=== PATIENT | male | born 1955 | race Caucasian/White ===

== ENCOUNTER → 2019-12-27 18:10 | Outpatient (CLI) | payer BC, SELFPAY ==
--- NOTE | ~2019-12-27 | MR_ITS ---
EXAMINATION: MR lumbar spine wo [facility] EXAM DATE: 12/27/2019 18:57 INDICATION: Lumbar radiculopathy. Low back pain. TECHNIQUE: Multi-sequential, multiplanar MR images of the lumbar spine were obtained without contrast . Sagittal T1, T2, T2 fat saturation images. Axial T2 weighted images. There are no prior studies f or comparison. FINDINGS: There is 2 mm retrolisthesis L3 on L4. There is mild to moderate L5-S1 disc disease, mild a t the other lumbar levels. The conus medullaris terminates at the L1 level and has normal signal inte nsity and morphology. There are no suspicious marrow signal abnormalities. Paraspinal soft tissue is unremarkable. Level by level evaluation: T12-L1: Disc does not extend beyond the endplate margin. Facet arthropathy: Mild. Neural foraminal stenosis: No stenosis. Central canal stenosis: No stenosis. L1-L2: There is a mild diffuse disc bulge. Facet arthropathy: Mild. Neural foraminal stenosis: Mild bilateral. Central canal stenosis: Mild. L2-L3: There is a mild diffuse disc bulge. Facet arthropathy: Mild. Neural foraminal stenosis: Mild bilateral. Central canal stenosis: Mild. L3-L4: There is a mild to moderate diffuse disc bulge. Facet arthropathy: Mild to moderate. Neural foraminal stenosis: Moderate right, mild to moderate left. Central canal stenosis: Mild to moderate. L4-L5: There is a mild diffuse disc bulge. Facet arthropathy: Mild. Neural foraminal stenosis: Mild to moderate bilateral. Central canal stenosis: Mild. L5-S1: There is a mild diffuse disc bulge. Facet arthropathy: Mild. Neural foraminal stenosis: Moderate bilateral. Central canal stenosis: No stenosis. IMPRESSION: 1. Mild to moderate lumbar spondylosis. Reviewed, dictated and finalized at location A.
== END ==
PROVIDERS: PCP Nurse Practitioner Adult Health; Visit Provider Nurse Practitioner Adult Health
DX: M47.26 Other spondylosis with radiculopathy, lumbar region (principal)
CPT/HCPCS: 72148

== ENCOUNTER 2022-06-25 13:03 | Outpatient (CLI) | payer OTHER, SELFPAY ==
--- NOTE | ~2022-06-25 | XR_ITS ---
XR lumbar spine min 4V DATE: 06/25/2022 13:33 INDICATION: Chronic low back pain for years. No fall or trauma recently TECHNIQUE: AP, bilateral oblique, lateral and coned lateral lumbosacral views COMPARISON: None FINDINGS: Very prominent right-sided bridging osteophyte at L3-4. There is mild retrolisthesis at L3- 4. There is mild degenerative spurring at the remaining lumbar interspaces. There is moderate loss of disc space height at L1-2, L3-4, L4-5. No fracture or bone destruction or spondylolisthesis. The sacroiliac joints are intact. IMPRESSION: Multilevel degenerative disc disease, most pronounced at L3-4, with very prominent bridgi ng osteophyte and mild retrolisthesis at this level Reviewed, dictated and finalized at location B. IMPRESSION: Multilevel degenerative disc disease, most pronounced at L3-4, with very prominent bridging osteophyte and mild retrolisthesis at this level
== END 2022-06-25 13:04 | disposition home or self-care (01) ==
LOC: ANHIMG 13:10
PROVIDERS: PCP Family Medicine; Visit Provider Family Medicine
DX: M51.36 Other intervertebral disc degeneration, lumbar region (principal); M54.50 Low back pain, unspecified
CPT/HCPCS: 72110

== ENCOUNTER 2023-02-25 11:06 | Outpatient (CLI) | payer MEDICARE, SELFPAY ==
--- NOTE | ~2023-02-25 | US_ITS ---
EXAMINATION: US aorta [facility] scr[facility] DATE: 02/25/2023 11:53 INDICATION: Abdominal aortic aneurysm screening with risk factors of hypertension, diabetes, hypercho lesterolemia and prior smoking TECHNIQUE: Grayscale, color Doppler, and pulsed Doppler images of the aorta and common iliac arteries were obtained. COMPARISON: None. FINDINGS: The proximal aorta measures 2.3 cm. The mid aorta measures 2.1 cm. The distal aorta measures 2.0 cm. Normal aortic triphasic waveforms with brisk systolic upstrokes. The right common iliac artery measur es 1.1 cm. The left common iliac artery measures 1.0 cm. IMPRESSION: 1. Normal caliber abdominal aorta. Reviewed, dictated and finalized at location A. 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
== END 2023-02-25 11:07 | disposition home or self-care (01) ==
PROVIDERS: PCP Family Medicine; Visit Provider Family Medicine
DX: Z87.891 Personal history of nicotine dependence (principal)
CPT/HCPCS: 76706

== ENCOUNTER 2023-05-27 10:51 | Outpatient (CLI) | payer MEDICARE, SELFPAY ==
--- NOTE | ~2023-05-27 | XR_ITS ---
EXAMINATION: XR abdomen/kub 1V INDICATION: Unspecified abdominal pain and swelling TECHNIQUE: Supine views of the abdomen were obtained on 2 radiographs. COMPARISON: None FINDINGS: The bowel gas pattern is normal. No dilated loops of bowel are identified. The lung bases a re clear. There are phleboliths of the pelvis. IMPRESSION: 1. No radiographic correlate for the patient's symptoms. Reviewed, dictated and finalized at location F.
--- NOTE | ~2023-05-27 | XR_ITS ---
EXAMINATION: XR ribs LT 2V INDICATION: Pleurodynia TECHNIQUE: Four views of the left ribs were obtained. COMPARISON: 03/17/2013 FINDINGS: The left lung is clear. The heart size is normal. No pleural effusion or pneumothorax. No d isplaced rib fracture is identified. IMPRESSION: 1. No acute cardiopulmonary abnormality or evidence of displaced rib fracture. Reviewed, dictated and finalized at location F.
[2023-05-27 19:15] LABS: Hemoglobin 15.2 g/dL (14.0-18.0); Mean Corpuscular HGB Conc 31.7 g/dl (32-36); Mean Corpuscular Hemoglobin 31.5 pg (26-34); Mean Corpuscular Volume 99.4 fl (80-100); Platelet Count Result 137 k/mm3 (150-375); Red Blood Count 4.83 M/mm3 (4.6-6.20); Red Cell Distribution Width 12.5 % (11.5-14.5); White Blood Count 6.9 K/mm3 (4.5-10.0)
[2023-05-27 19:48] LABS: Alanine Aminotransferase 58 U/L (6-50); Albumin Level 4.5 g/dL (3.5-5.1); Alkaline Phosphatase 51 U/L (38-126); Amylase 91 U/L (30-110); Anion Gap 4 mmol/L (8-16); Aspartate Amino Transferase 56 U/L (17-59); Bilirubin,Total 0.6 mg/dL (0.2-1.3); Blood Urea Nitrogen 14 mg/dL (9-20); Calcium 9.2 mg/dL (8.4-10.2); Carbon Dioxide 30 mmol/L (22-30); Chloride 106 mmol/L (98-107); Estimated Glomerular Filt Rate > 60; Glucose 95 mg/dL (65-110); Lipase 68 U/L (23-300); Magnesium 2.6 mg/dL (1.6-2.3); Potassium 4.1 mmol/L (3.4-5.0); Sodium 140 mmol/L (137-145)
[2023-05-29 15:08] LABS: Folic Acid > 20.0 ng/mL (2.76->20)
== END 2023-05-27 10:52 | disposition home or self-care (01) ==
PROVIDERS: Visit Provider Nurse Practitioner Adult Health
DX: R10.9 Unspecified abdominal pain (principal); M62.81 Muscle weakness (generalized); R07.81 Pleurodynia
CPT/HCPCS: 36415; 71100; 74018; 80048; 80076; 82150; 82607; 82746; 83690; 83735; 85027

== ENCOUNTER 2023-05-28 15:55 | Outpatient (CLI) | payer MEDICARE, SELFPAY ==
--- NOTE | ~2023-05-28 | MR_ITS ---
MRI of the lumbar spine Clinical History: Degenerative disc disease Technique: Axial T2-weighted images, and sagittal T1-weighted, T2-weighted, and T2 fat-sat images wer e acquired. COMPARISON: 12/27/2019 Findings: No fracture or subluxation identified in the lumbar spine. Osseous alignment is unchanged. No suspicious bone marrow signal abnormality seen. At L1-L2, there is mild degenerative disc narrowing. Minimal disc bulge and moderate facet arthropath y results in mild to moderate thecal sac compression/spinal canal stenosis. There is minimal bilatera l neural foraminal narrowing. At L2-L3, minimal disc bulge and moderate facet arthropathy contribute to mild central canal stenosis /thecal sac compression. Neural foramina are preserved. At L3-L4, disc bulge and moderate facet arthropathy, as well as focally prominent posterior epidural fat, contribute to moderate spinal canal stenosis/thecal sac compression and right lateral recess malvin nosis. There is moderate left neural foraminal narrowing, and severe right neural foraminal narrowing . At L4-L5, minimal disc bulge and moderate facet arthropathy are present. No jonah spinal canal stenos is. There is moderate to advanced right neural foraminal narrowing, and moderate left neural foramina l narrowing. L5-S1, there is diffuse disc bulge and moderate facet arthropathy. No central canal stenosis. There i s severe bilateral neural foraminal narrowing. Paravertebral soft tissues are unremarkable otherwise. Impression: Moderate to advanced degenerative spondylosis, as above. Reviewed, dictated and finalized at [facility]. Impression: Moderate to advanced degenerative spondylosis, as above.
== END 2023-05-28 15:56 ==
LOC: MICIMG 15:56
PROVIDERS: Visit Provider Nurse Practitioner Adult Health
DX: M25.78 Osteophyte, vertebrae (principal); M51.36 Other intervertebral disc degeneration, lumbar region; M43.06 Spondylolysis, lumbar region
CPT/HCPCS: 72148

== ENCOUNTER 2023-06-15 10:22 | Outpatient (CLI) | payer MEDICARE, SELFPAY ==
--- NOTE | ~2023-06-15 | CT_ITS ---
Non-contrast CT scan of the Abdomen and Pelvis Clinical indication: Intra-abdominal swelling, mass Technique: 2.5 mm axial scans were obtained through the abdomen and pelvis without intravenous or or al contrast. Dose reduction technique was used on this scan by utilizing automated exposure control a nd iterative reconstruction technique. The dose-length product (DLP) was 974.70 mGy-cm. Findings: Images through the lung bases reveal no abnormalities. There is no evidence of renal or ureteral calculi. The kidneys and the ureters are nondilated. The liver, spleen, pancreas, gallbladder, and adrenals appear normal. There are atherosclerotic calci fications of the aorta. There is no evidence of bowel obstruction. Small fat-containing left-sided Spigelian hernia noted. Images through the pelvis were performed. There is no evidence of ascites or lymphadenopathy. Urinary bladder unremarkable. No pelvic mass seen. Impression: No acute abnormality. Small fat-containing left-sided spigelian hernia. Reviewed, dictated and finalized at location . Impression: No acute abnormality. Small fat-containing left-sided spigelian hernia.
== END 2023-06-15 10:23 ==
LOC: MICIMG 10:23
PROVIDERS: PCP Nurse Practitioner Adult Health; Visit Provider Nurse Practitioner Adult Health
DX: R19.00 Intra-abdominal and pelvic swelling, mass and lump, unspecified site (principal); K43.9 Ventral hernia without obstruction or gangrene
CPT/HCPCS: 74176

== ENCOUNTER 2023-06-15 10:25 | Outpatient (CLI) | payer MEDICARE, SELFPAY ==
--- NOTE | ~2023-06-15 | XR_ITS ---
EXAM: XR lumbar spine min 4V DATE: 06/15/2023 10:56 HISTORY: M47.816 - Spondylosis without myelopathy or radiculopathy... . COMPARISON: 06/25/2022, report only. FINDINGS: 5 nonrib-bearing lumbar-type vertebral bodies. Pedicles intact. 3 mm retrolisthesis at L3- 4, stable in flexion and extension. Vertebral body heights preserved. Disc space narrowing and/or mar ginal osteophytosis at all levels, moderate at L3-4. Large bridging osteophytes at L2-3 and L3-4. Mod erate lower lumbar facet hypertrophy and sclerosis. No fracture or dislocation. Atherosclerotic aorti c calcification without evident aneurysm. IMPRESSION: Multilevel degenerative disc disease, moderate at L3-4. Stable grade 1 retrolisthesis at L3-4. No dynamic listhesis detected. Moderate lower lumbar facet arthropathy. Reviewed, dictated and finalized at location K. IMPRESSION: Multilevel degenerative disc disease, moderate at L3-4. Stable grad e 1 retrolisthesis at L3-4. No dynamic listhesis detected. Moderate lower lumba r facet arthropathy.
== END 2023-06-15 10:26 ==
LOC: MICIMG 10:27
PROVIDERS: PCP Nurse Practitioner Adult Health; Visit Provider Physician Assistant
DX: M47.816 Spondylosis without myelopathy or radiculopathy, lumbar region (principal); M51.36 Other intervertebral disc degeneration, lumbar region
CPT/HCPCS: 72110

== ENCOUNTER 2023-07-15 12:33 | Outpatient (CLI) | payer MEDICARE, SELFPAY ==
--- NOTE | 2023-07-15 12:57 | ECG_ITS ---
SEE SCANNED COPY FOR CONFIRMED REPORT MTDD
== END 2023-07-15 12:34 | disposition home or self-care (01) ==
LOC: ANHSURGERY 12:39
PROVIDERS: PCP Nurse Practitioner Adult Health; Visit Provider Surgery
DX: Z01.818 Encounter for other preprocedural examination (principal); I10 Essential (primary) hypertension; K43.2 Incisional hernia without obstruction or gangrene
CPT/HCPCS: 36415; 86850; 86900; 86901; 93005

== ENCOUNTER 2023-07-22 01:24 | Day surgery (SDC) | payer MEDICARE, SELFPAY ==
--- NOTE | 2023-07-13 13:55 | PC.NURSE ---
Report to the Outpatient Waiting Room, entrance under the green pavilion located off [facility], at time _9:00 AM on date ___07/22/23____. Planned Procedure Time: _1100 AM . Time changes happen often and if your time is changed the preop area will call you the afternoon before. - You and your visitor will be asked to self-screen and do not enter if you have any COVID symptoms. - A mask is optional within the hospital at this time. Patients may have clear liquids (water, carbonated beverages, clear teas, apple juice) until 3 hours prior to surgery( 8:00 Am) with a maximum of 20 ounces. - No food from midnight until time of surgery - Infants may have breast milk until 4 hours before surgery, infant formula 6 hours prior to surgery. - Children will be allowed to drink immediately following surgery. If applicable, please bring a bottle or sippy cup to assist with drinking. Juice, water, soda, and popsicles are readily available. For infants on formula, please bring formula the day of surgery. Pacifiers are allowed. Take the following medications with a SIP of water the morning of surgery: METOPROLOL MAY CONTINUE ASPIRIN BUT DO NOT TAKE MORNING OF SURGERY____ DO NOT STOP ANY OF YOUR OTHER PRESCRIPTION MEDICATIONS PRIOR TO SURGERY ?EXCEPT THE FOLLOWING Medications to discontinue per physician ____HOLD VITAMINS AND SUPPLEMENTS 3 DAYS PRE OP .LAST DOSE 07/18/23 Please no make-up, nail serbian, hairspray, perfume, deodorant, or body powder the day of surgery. No jewelry (including any body piercings) or valuables the day of surgery, leave them at home. Please take a shower or bath the night before, or the morning of, surgery with an antibacterial soap. Wear comfortable, loose fitting clothing. Children are encouraged to wear pajamas. - Jewelry must be removed prior to entering the operating room. Rings and piercings that are not removed may be cut off. - The hospital will not accept responsibility for valuables. - Please leave all valuables, including medications, at home the day of surgery. If you are going home after surgery, a licensed regional owner operator truck driver must drive you home. - NO public transportation without another adult if you receive anesthesia. - We recommend that an adult stay with you for 24 hours following discharge. - We also recommend that you do not drive, make important decision, drink alcoholic beverages, or take any drugs that were not prescribed by your health care provider for at least 24 hours after your discharge time. Follow any additional instructions given to you from your surgeon. If you or anyone in your household have experienced Covid symptoms in the past week, please notify your surgeon or the nurse liaison at the phone number below for possible testing. Telephone instructions given to ___PATIENT and asked if any additional questions and then verbalized understanding. Patient advised to call surgeon office or pre surgery nurse liaison [phone] if any additional questions.
[2023-07-13 14:05] VITALS: BMI 33.7
[2023-07-22] VITALS (9 sets, daily range): BP systolic 114–162; BP diastolic 66–84; PULSE 55–78; RESP 12–18; TEMP 36.4; O2SAT 94–100; BMI 33.8
[2023-07-22] MEDS: LACTATED RINGERS 1,000 ML 30 ML IV CONT ×3 (09:35→14:23)
[2023-07-22] MEDS: ACETAMINOPHEN 500 MG TABLET 1000 MG PO (09:47)
[2023-07-22] MEDS: KETOROLAC 15 MG/ML VIAL (*BKC) IV PUSH (09:47)
--- NOTE | 2023-07-22 10:00 | WPDANESEPPF ---
Anes - Initial Pre Proc Eval Procedure: Operation Date: 07/22/23 11:00 Proposed Procedures p Laparoscopic Incisional Hernia Repair with Mesh, Davinci Assisted - Jluius Jiménez DO Date/Time: 07/22/23 10:00 Surgeon: Julius Jiménez DO Pre Op Diagnosis: Incisional Hernia (2cm) Patient Data Age: 67 Gender: M Height: 1.78 m Weight: 106.6 kg Allergies Allergy/AdvReac Type Severity Reaction Status Date / Time Penicillins Allergy Intermediate Anaphylactic Verified 07/22/23 09:25 Shock Home Medications Medication Instructions Recorded Confirmed Type aspirin 81 mg tablet,delayed 81 mg PO DAILY 04/13/23 07/13/23 History release hydrocodone 5 mg-acetaminophen 325 1 tablet PO Q8H PRN pain #30 tabs 04/13/23 07/13/23 Rx mg tablet lisinopril 40 mg tablet 40 mg PO DAILY 04/13/23 07/13/23 History rosuvastatin 20 mg tablet 20 mg PO DAILY #90 tabs 04/13/23 07/13/23 Rx ascorbic acid (vitamin C) 500 mg 500 mg PO DAILY 07/13/23 07/13/23 History capsule cholecalciferol (vitamin D3) 50 50 mcg PO DAILY 07/13/23 07/13/23 History mcg (2,000 unit) tablet cyanocobalamin (vitamin B-12) 1,000 mcg PO DAILY 07/13/23 07/13/23 History 1,000 mcg tablet metoprolol succinate 25 mg 12.5 mg PO DAILY 07/13/23 07/13/23 History tablet,extended release 24 hr multivit,calcium,min-folic acid 1 tablet PO DAILY 07/13/23 07/13/23 History 240 mcg-D3 25 mcg-lycop 300 mcg tablet (One A Day Men Complete) Patient hx anesthesia problems: none and other (Pt reports feeling weak after GA for appy approx 2018. ) Family hx anesthesia problems: none Results Review: All pre-operative results and documents have been reviewed as part of the pre-operative evaluation. [facility] Past Medical History Medical History CAD (coronary atherosclerotic disease) HTN (hypertension) Family History Family History Father Family history of aortic aneurysm Mother Diabetes mellitus Heart disease Depression Cerebrovascular accident Hypertension Sibling Diabetes mellitus Hypertension Heart disease Other Acute myocardial infarction Family history of coronary artery disease Social History Social History Smoking packs per day: 1 Smoking cigarettes per day: 20.0 Years smoked: 29 Smoking pack-years: 29.00 Smoking status: Former smoker Tobacco type: cigarettes Smoking end date: 08/08/99 Alcohol intake: current Drinks per week: 12 Alcohol use details: BEER Substance use: never Substance use type: does not use Do You Feel Safe in your Home?: Yes Lack of Transportation: No Lack of Food: Never True Current Housing: I Have Housing Concerned About Future Housing: No Difficulty Paying Gas/Electric Bills: No Difficulty Paying for Meds: No Currently Unemployed: No Education: High School Diploma/GED Difficulty w/ Childcare or Family Care: No Living arrangements: with family Occupation/Education: retired Gender identity (if verbalized by the patient): Male Spiritual care concerns: No Agree to blood products: Yes Anes - Eval Final PreProcedure Day of Procedure 07/22/23 10:00 Patient weight: normal Heart: regular rate and rhythm Lungs: clear to auscultation Airway: special considerations (Lower teeth missing in back. ) Neurological: alert and oriented Last oral intake: >/= 8 hours ASA classification: III Emergent: no Anesthetic plan: proceed Anesthesia type and monitoring: general ETT and standard monitoring Results Review: All pre-operative results and documents have been reviewed as part of the pre-operative evaluation. S/p PTCA 2018 w nml stress test 2022 per pt and his family. 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 Informed Consent: The patient's anesthetic plan and its attenda
--- NOTE | 2023-07-22 11:02 | WPDHPUPDATE1 ---
History and Physical Update Update Date/Time: 07/22/23 11:02 History and Physical has been reviewed, including an updated exam of the patient. There are NO changes in the patient's condition. Risks, benefits, and alternatives have been discussed and questions answered. Patient agrees to proceed with procedure.
--- NOTE | 2023-07-22 11:03 | PM.IMHP ---
H&P: HPI History of Present Illness Date/Time: 07/22/23 11:03 Chief Complaint: Incisional hernia Narrative: This is a 67-year-old man who presents for incisional hernia repair. He reports no changes since last seen in the office. Review of Systems Review of Systems: All systems reviewed & are unremarkable except as noted in HPI and below Constitutional: Constitutional: Denies chills, Denies fever(s), Denies headache(s) and Denies weight loss Eyes: Eyes: Denies change in vision ENT: Denies dizziness, Denies headache(s), Denies neck mass and Denies throat swelling Cardiovascular: Cardiovascular: Denies chest pain, Denies lightheadedness and Denies dyspnea Respiratory: Respiratory: Denies cough, Denies dyspnea and Denies wheezing Gastrointestinal: Gastrointestinal: Denies abdominal pain, Denies change in bowel habits, Denies nausea and Denies vomiting Genitourinary: Genitourinary: Denies hematuria and Denies dysuria Musculoskeletal: Musculoskeletal: Reports as per HPI Integumentary/Breasts: Skin/Breast: Reports as per HPI Neurologic: Denies dizziness and Denies headache(s) Allergic/Immunologic: Allergic/Immunologic: Denies throat swelling and Denies wheezing PMFSH Past Medical History Medical History CAD (coronary atherosclerotic disease) HTN (hypertension) Family History Family History Father Family history of aortic aneurysm Mother Diabetes mellitus Heart disease Depression Cerebrovascular accident Hypertension Sibling Diabetes mellitus Hypertension Heart disease Other Acute myocardial infarction Family history of coronary artery disease Social History Social History Smoking packs per day: 1 Smoking cigarettes per day: 20.0 Years smoked: 29 Smoking pack-years: 29.00 Smoking status: Former smoker Tobacco type: cigarettes Smoking end date: 08/08/99 Alcohol intake: current Drinks per week: 12 Alcohol use details: BEER Substance use: never Substance use type: does not use Do You Feel Safe in your Home?: Yes Lack of Transportation: No Lack of Food: Never True Current Housing: I Have Housing Concerned About Future Housing: No Difficulty Paying Gas/Electric Bills: No Difficulty Paying for Meds: No Currently Unemployed: No Education: High School Diploma/GED Difficulty w/ Childcare or Family Care: No Living arrangements: with family Occupation/Education: retired Gender identity (if verbalized by the patient): Male Spiritual care concerns: No Agree to blood products: Yes Meds Home Medications and Allergies Home Medications Medication Instructions Recorded Confirmed Type aspirin 81 mg tablet,delayed 81 mg PO DAILY 04/13/23 07/13/23 History release hydrocodone 5 mg-acetaminophen 325 1 tablet PO Q8H PRN pain #30 tabs 04/13/23 07/13/23 Rx mg tablet lisinopril 40 mg tablet 40 mg PO DAILY 04/13/23 07/13/23 History rosuvastatin 20 mg tablet 20 mg PO DAILY #90 tabs 04/13/23 07/13/23 Rx ascorbic acid (vitamin C) 500 mg 500 mg PO DAILY 07/13/23 07/22/23 History capsule cholecalciferol (vitamin D3) 50 50 mcg PO DAILY 07/13/23 07/22/23 History mcg (2,000 unit) tablet cyanocobalamin (vitamin B-12) 1,000 mcg PO DAILY 07/13/23 07/22/23 History 1,000 mcg tablet metoprolol succinate 25 mg 12.5 mg PO DAILY 07/13/23 07/22/23 History tablet,extended release 24 hr multivit,calcium,min-folic acid 1 tablet PO DAILY 07/13/23 07/22/23 History 240 mcg-D3 25 mcg-lycop 300 mcg tablet (One A Day Men Complete) Allergies Allergy/AdvReac Type Severity Reaction Status Date / Time Penicillins Allergy Intermediate Anaphylactic Verified 07/22/23 09:25 Shock Vital Signs Vital Signs - 24 hr 07/22/23 09:05 Temperature 36.4
[2023-07-22] MEDS: CLINDAMYCIN 900 MG/D5W 50 ML 900 MG/50 ML PIGGYBACK 50 MG IVPB (11:32)
[2023-07-22] MEDS: BUPIVACAINE/EPINEPHRINE 0.5% 10 ML VIAL 30 ML INFILTRATE (12:11)
--- NOTE | 2023-07-22 12:53 | W.PM.PROC2 ---
Procedure Note - Detailed Date of Procedure 07/22/23 Pre-op Diagnosis Incisional Hernia (2cm) Post-op Diagnosis Same Procedure Performed Laparoscopic 2 cm incisional hernia repair with mesh, da Ezio assisted Surgeon Julius Jiménez, Anesthesia General and Local (0.5% bupivacaine with epinephrine) Indications This is a 67-year-old man who presented with a left lower quadrant bulge that was causing him some discomfort over the past several months. He has a history of a laparoscopic appendectomy 6 years ago. This bulge appears close to the scar from the previous surgery. He was found to have an incisional hernia at the trocar site in the left lower quadrant on exam and on CT. Discussions were made with the patient about treatment options and decision was made to proceed with robotic assisted laparoscopic incisional hernia repair with mesh. Findings Laparoscopic incisional hernia repair with mesh was performed. The patient was found to have a 2 cm incisional hernia in the left lower quadrant. This was containing some omentum. The omentum was reduced and the hernia defect was measured at 2 cm. A robotic intraperitoneal onlay mesh technique was utilized for repair. The fascia was closed using 0 Stratafix running absorbable suture. A Ventralight ST 15 cm x 10 cm mesh was then placed into the abdominal cavity and secured circumferentially to the abdominal wall. No specimens were obtained for pathology. Description of Procedure Procedure as well as risks, benefits, and alternatives were discussed with the patient. Written consent was obtained and placed in chart prior to procedure. Patient was brought back to surgical suite. He was placed supine on operating table. Time-out was done to confirm patient and procedure. He was then intubated by the anesthesia department. His abdomen was prepped and draped in sterile fashion using chlorhexidine prep. A 5 millimeter incision was made in the right upper quadrant, and a 5 millimeter Optiview trocar was advanced through the abdominal layers under direct visualization. Once inside the abdominal cavity, carbon dioxide insufflation was used to create a pneumoperitoneum. His abdomen was inspected. An 8 millimeter incision was made in the right lower quadrant, and an 8 millimeter robotic trocar was placed under direct visualization. Another 8 millimeter incision was made in the right lateral abdomen, and an 8 millimeter robotic trocar was placed under direct visualization. 0.5% bupivacaine with epinephrine was infiltrated around each port site. The 5 millimeter port was removed, and an 8 mm robotic trocar was placed under direct visualization. The robotic arms were brought up to the patient's bedside and secured to the ports. The camera and instruments were inserted, and I then moved over to the robotic console and took control of the camera and instruments. After careful thorough inspection of the abdominal cavity, I began my dissection at the hernia. The omentum was reduced from the hernia defect. I then measured the hernia size. The hernia measured 2 cm. The fascia was closed using an 0-Stratafix running suture in a transverse fashion. A Ventralight ST 15 cm x 10 cm mesh was then placed within the abdominal cavity. This was oriented vertically with the mesh centered on the hernia defect. The mesh was then secured at the center and 4 corners using 3-0 Vicryl simple interrupted sutures. The perimeter of the mesh was then secured to the abdominal wall using 2-0 Stratafix running absorbable suture. The repair was inspected, and one final inspection was made around the abdominal cavity. The robotic instruments were then removed, and the robotic arms were disengaged from the trocars. The ports were then removed under direct visualization, the camera was removed, and the pneumoperitoneum was released. The skin of the incisions was then approximated using 4-0 Monocryl subcuticular suture. Exofin glue was the
[2023-07-22] MEDS: fentaNYL CITRATE INJ (*CRX) 100 MCG/2 ML VIAL 25 MCG IV PUSH ×8 (13:27→14:24)
[2023-07-22] MEDS: ONDANSETRON INJ 4 MG/2 ML VIAL IV PUSH (14:21)
[2023-07-22] MEDS: HYDROmorphone HCL INJ (*CRX) 1 MG/ML SYR 0.25 MG IV PUSH ×2 (14:42→14:53)
[2023-07-22] MEDS: oxyCODONE HCL (*CRX) 5 MG TAB IR PO (14:53)
== END 2023-07-22 15:48 | disposition home or self-care (01) ==
PROVIDERS: PCP Nurse Practitioner Adult Health; Visit Provider Surgery
PROC: (CPT 49591; principal; 2023-07-22 11:00)
DX: K43.2 Incisional hernia without obstruction or gangrene (principal); I25.10 Atherosclerotic heart disease of native coronary artery without angina pectoris; I10 Essential (primary) hypertension; Z79.82 Long term (current) use of aspirin; Z87.891 Personal history of nicotine dependence
CPT/HCPCS: 49591; S2900; 36415; 86850; 86900; 86901; 93005; A9270; C1781; J1100; J1170; J1885; J2250; J2405; J2704; J3010; J7120

== ENCOUNTER 2023-10-19 12:59 | Outpatient (CLI) | payer MEDICARE, SELFPAY ==
--- NOTE | ~2023-10-19 | CT_ITS ---
EXAMINATION: CT abdomen pelvis wo con DATE: 10/19/2023 13:12 INDICATION: Other specified post procedural states. TECHNIQUE: Computed tomography (CT) of the abdomen and pelvis was performed without intravenous contr ast. Automated exposure control and iterative reconstruction technique were employed. The dose-length product was 1008.29 mGy-cm. COMPARISON: CT abdomen and pelvis 06/15/2023, 07/18/18 FINDINGS: The visualized portions of the lung bases demonstrate mild atelectasis. No pleural effusion . The heart size is normal. No pericardial effusion. There is diffuse hepatic steatosis. There is a 1 4 mm cyst in the liver. The gallbladder, spleen, pancreas, adrenal glands, and kidneys are normal. Th ere is no urolithiasis. The prostate is moderately enlarged. There is prominent fat in the inguinal c anals that may be hernias. There are changes of appendectomy. There is a 3.5 x 3.0 cm mass in the sma ll bowel mesentery. There are no pathologically enlarged lymph nodes. There is no free intraperitonea l fluid. There is moderate lumbar spondylosis. IMPRESSION: 1. 3.5 cm mass in the small bowel mesentery. The differential diagnosis includes lymphoma, carcinoid, metastatic disease, and sclerosing mesenteritis. CT-guided biopsy is recommended. Reviewed, dictated and finalized at location A. IMPRESSION: 1. 3.5 cm mass in the small bowel mesentery. The differential diagnosis include s lymphoma, carcinoid, metastatic disease, and sclerosing mesenteritis. CT-guid ed biopsy is recommended.
== END 2023-10-19 13:00 ==
LOC: MICIMG 13:00
PROVIDERS: PCP Nurse Practitioner Adult Health; Visit Provider Nurse Practitioner Adult Health
DX: R10.9 Unspecified abdominal pain (principal); Z98.890 Other specified postprocedural states; R19.09 Other intra-abdominal and pelvic swelling, mass and lump
CPT/HCPCS: 74176

== ENCOUNTER 2023-10-29 08:52 | Outpatient (CLI) | payer MEDICARE, SELFPAY ==
--- NOTE | 2023-10-23 12:48 | PC.NURSE ---
Pre Radiology instructions Report to the outpatient alejandra everett on date _10/29/23____ at time __0900am for procedure Time: __1100am __ YOU MAY BE MONITORED AT HOSPITAL FOR UP TO 4 HOURS AFTER YOUR PROCEDURE. A visitor will be allowed to accompany the patient into the hospital. You and your visitor will be asked to self-screen and do not enter if you have any COVID symptoms. A mask is OPTIONAL within the hospital. Patients are to have no food or drink 6 hours prior to procedure time Driving will be restricted after the procedure, you must have a person to drive you home. Labs will be drawn in preop area and once reviewed, you will be taken to radiology area for procedure. When the procedure is completed, you will be taken to outpatient where you will be monitored for several hours. You may have one visitor in this area. Other than holding anti-coagulants, patient may take other medication(s) as scheduled. Prior to your appointment date patients are instructed to hold anti-coagulants after discussing with ordering provider to stop. If unable to discontinue anti-coagulants please notify radiologist. ? No aspirin or warfarin (Coumadin) for 7 days prior to the procedure. ? No clopidogrel (Plavix), ticagrelor (Brilinta), prasugrel (Effient) or dabigatran (Pradaxa) for 5 days prior to the procedure. ? No rivaroxaban (Xarelto), apixaban (Eliquis), dipyridamole (Aggrenox or Persantine) or cilostazol (Pletal) for 2 days prior to the procedure. Medications to discontinue per physician: _Aspirin [address] Gonzalez. Date to take last dose: 10/21/23 Please leave all valuables, including medications, at home the day of procedure. The hospital will not accept responsibility for valuables. Wear comfortable, loose fitting clothing.? Follow any additional instructions given to you from ordering provider. Telephone instructions given to ___patient and asked if any additional questions and then verbalized understanding. Patient advised to call scheduling provider office or registration scheduling [phone] if any additional questions.
[2023-10-23 13:03] VITALS: BMI 34.1
[2023-10-29] VITALS (11 sets, daily range): BP systolic 106–154; BP diastolic 62–74; PULSE 63–77; RESP 16–18; TEMP 37; O2SAT 98; BMI 33.3
--- NOTE | ~2023-10-29 | CT_ITS ---
EXAMINATION: CT biopsy abdomen percutaneous DATE: 10/29/2023 12:14 INDICATION: Mass in the small bowel mesentery. TECHNIQUE: The procedure including the risks and benefits was discussed with the patient. Risks discu ssed included bleeding and infection. The patient understood the risks and agreed to proceed. The sk in overlying the right lower quadrant anterior abdominal wall was prepped and draped in usual sterile fashion. Anesthetic was administered with 1% lidocaine subcutaneously. A 16 gauge outer needle was advanced under CT guidance to the lesion of interest. An 18 gauge core biopsy needle was then advanc ed into the lesion. 8 core biopsy specimens were obtained, 5 placed in RPMI media and 3 in formalin. The outer needle was removed and the entry site was cleaned and dressed. There were no immediate com plications. The dose-length product was 307.50 mGy-cm. FINDINGS: CT images demonstrate the outer needle tip at the periphery of a 3.5 cm mass with periphera l calcification in the mesenteric fat of the central lower abdomen. IMPRESSION: 1. Successful CT-guided biopsy of an indeterminate 3.5 cm mesenteric mass. Reviewed, dictated and finalized at location A.
[2023-10-29 09:28] LABS: Platelet Count Result 141 k/mm3 (150-375)
[2023-10-29 09:40] LABS: INR 1.1; Prothrombin Time 14.1 Seconds (11.1-14.7)
== END 2023-10-29 16:08 | disposition home or self-care (01) ==
PROVIDERS: PCP Nurse Practitioner Adult Health; Referring Provider Nurse Practitioner Adult Health; Visit Provider Radiology Diagnostic Radiology
PROC: BW20ZZZ Computerized Tomography (CT Scan) of Abdomen (ICD-10-PCS; CPT 77012; principal; 2023-10-29 11:00)
DX: K63.89 Other specified diseases of intestine (principal)
CPT/HCPCS: 36415; 49180; 77012; 85049; 85610; 88184; 88305

== ENCOUNTER 2024-05-17 13:24 | Outpatient (CLI) | payer MEDICARE, SELFPAY ==
--- NOTE | ~2024-05-17 | XR_ITS ---
XR hand RT min 3V Ordering provider: Deana Mayorga MD History: . M79.641 - Pain in right hand x 5 months . Comparison: None. FINDINGS: BONES: No acute fracture or dislocation. JOINT SPACES: Normal. SOFT TISSUES: Normal. IMPRESSION: No acute osseous abnormality right hand. Reviewed, dictated and finalized at location A.
--- OUTSIDE RECORDS SUMMARY | 2024-05-17 14:56 | XMS_ITS | Encounter Summary ---
Author Organization [facility] Address [address] [place] [address] Phone Care Team Providers Care Results Engineer Name Role Phone Kymberly Arauz NP Primary Care Provider Ayad Lambert MD Primary Care Provider [phone] Kymberly Aruaz NP Primary Care Provider [phone] Encounter Details Date Type Department Care Team (Late st Contact Info) Description 05/08/2022 Telephone [facility] [address] [facility] Advanced Medicine 8th [place] [address] [place] [address] Jeferson Macias MD [address] [facility] [place] [place], [place] [id number] Social History Tobacco Use Types Packs/Day Years Used Date Smoking Tobacco: Former Cigarettes 1 28 0 05/06/1971 - 05/06/1999 Smokeless Tobacco: Never Alcohol Use Standard Drinks/Week Comments Defer 0 (1 standard drink = 0.6 oz pur e alcohol) Sex and Gender Information Value Date Recorded Sex Assigned at Not on file 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 Gender Identity Not on file Sexual Orientation Not on file documented as of this encounter Plan of Treatment Not on file documented as of this encounter Visit Diagnoses Not on filedocumented in this encounter Care Teams Results Engineer Relationship Specialty Start Date End Date Kymberly Arauz NP PCP - General 01/09/17 07/06/22 Ayad Lambert MD [address] [place] [address] DE[place] [address] PCP - General Family Medicine 07/07/22 07/26/23 Kymberly Arauz NP [address] [place] [id number] PCP - General Nurse Practitioner 07/27/23 documented as of this encounter
--- OUTSIDE RECORDS SUMMARY | 2024-05-17 14:56 | XMS_ITS | Encounter Summary ---
Author Organization [facility] Address [address] [place] [address] Phone Care Team Providers Care Appraiser Name Role Phone Kymberly Arauz NP Primary Care Provider [phone] Ayad Lambert MD Primary Care Provider Kymberly Arauz NP Primary Care Provider [phone] Encounter Details Date Type Department Care Team (Latest Contact Info) Description 05/10/2018 Orders Only [facility] Scanning, Provider Social History Tobacco Use Types Packs/Day Years Used Date Smoking Tobacco: Former Cigarettes 1 28 0 05/06/1971 - 05/06/1999 Smokeless Tobacco: Never Sex and Gender Information Value Date Recorded Sex Assigned at Not on file 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 Gender Identity Not on file Sexual Orientation Not on file documented as of this encounter Plan of Treatment Not on file documented as of this encounter Procedures Procedure Name Priority Date/Time Associated Diagnosis Comments CARDIOLOGY DOCUMENT SCAN 05/10/2018 documented in this encounter Results * SCAN - CARDIOLOGY (05/10/2018) Anatomical Region Laterality Modality Other us Provider Scanning [facility] CARDIAC SERVICES PROCEDURES Final Result documented in this encounter Visit Diagnoses Not on filedocumented in this encounter Care Teams Appraiser Relationship Specialty Start Date End Date Kymberly Arauz NP PCP - General 01/09/17 07/06/22 Ayad Lambert MD [address] [facility] [place] [address] PCP - General Family Medicine 07/07/22 07/26/23 Kymberly Arauz NP [address] [place] [address] PCP - General Nurse Practitioner 07/27/23 documented as of this encounter
--- OUTSIDE RECORDS SUMMARY | 2024-05-17 14:56 | XMS_ITS | Referral Summary ---
Author Organization [facility] Address [address] [place] [address] Care Team Providers Care Photovoltaic Installer Name Role Phone Kymberly Arauz NP Primary Care Provider [phone] Encounters Date Type Department Care Team Description 05/05/2024 3:15 PM WORKING SUPERVISOR Ancillary Procedure [facility] Vascular Lab at the [facility] [address] [facility] [address] 8th [place] [address] [place] [address] Iliac artery stenosis, right; Iliac artery aneurysm 04/26/2024 Telephone [facility] Surgery [address] [facility] Floor [address] [place] [address] Maggie Moore MD 04/06/2024 Telephone [facility] Cardiology [address] [facility] 8th [place] [address] [place] [address] Jeferson Macias MD 03/16/2024 Telephone [facility] Cardiology [address] [facility] [address] [facility] [address] 8th [place] [address] [place] [address] Jeferson Macias MD 02/19/2024 Orders Only [facility] Vascular Surgery [address] [facility] [address] [place] [phone] Maggie Moore MD Iliac artery stenosis, right (Primary Dx); Iliac artery aneurysm from Last 3 Months Allergies Active Allergy Reactions Criticality Noted Date Comments Penicillins Anaphylaxis High Medications HYDROcodone-shoshana taminophen (NORCO) 5-325 mg per tablet 0 07/19/2018 Activ e ibuprofen (ADVIL,MOTRIN) 800 mg tablet Take by mouth every 8 (eight) hours as needed 07/22/2023 Active multivitamin tabletIndicatio ns:Vitamin Deficiency Prevention Take 1 tablet by mouth Active aspirin 81 mg enteric coated tablet Take 1 tablet (81 mg total) by mouth daily 90 tablet 3 04/06/2024 Active lisinopriL (PRINIVIL,ZESTR IL) 40 mg tablet Take 1 tablet (40 mg total) by mouth daily 90 tablet 3 04/06/2024 Active nitroglycerin (NITROSTAT) 0.[address] 1 tablet (0.4 mg total) under the tongue every 5 (five) minutes as needed for chest pain Up to 3 doses per episode. 25 tablet 2 04/06/2024 Active rosuvastatin (CRESTOR) 20 mg tablet Take 1 tablet (20 mg total) by mouth daily 90 tablet 3 04/06/2024 Active metoprolol XL (TOPROL-XL) 25 mg extended release tablet Take 0.5 tablets (12.5 mg total) by mouth daily 45 tablet 3 04/06/2024 Active Active Problems Problem Noted Date Diagnosed Date Abdominal pain 01/20/2024 Postprandial abdominal bloating 11/12/2023 Colon cancer screening 11/12/2023 Acute sinusitis 08/12/2022 08/12/2022 Arthritis 08/12/2022 08/12/2022 Carotid artery stenosis 08/12/2022 08/13/19 23 Chronic obstructive lung disease 08/12/2022 08/12/2022 Colitis 08/12/2022 08/12/2022 Cough 08/12/2022 08/12/2022 Dysuria 08/12/2022 08/12/2022 Excessive sweating 08/12/2022 08/12/2022 Chronic fatigue syndrome 08/12/2022 023 Hemorrhoids 08/12/2022 08/12/2022 Hypercholesterolemia 08/12/2022 08/12/2022 Intermittent palpitations 08/12/20222022 Neoplasm of bone 08/12/2022 08/12/2022 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 08/12/2022 Umbilical hernia 08/12/2022 08/12/2022 Upper respiratory infection 08/12/2022 060 08/2022 Vitamin D deficiency 08/12/2022 08/12/2022 Degeneration of lumbar intervertebral disc 07/0208/12/2022 Chronic low back pain 05/27/2022 08/12/2022 Erectile dysfunction 05/27/2022 08/12/2022 Isolated thrombocytopenia 11/06/20202022 History of severe acute resp iratory syndrome coronavirus 2 (SARS-CoV-2) disease 10/31/2020 08/12/2022 COVID-19 02/07/2020 08/12/2022 Abnormal findings on cardiac catheterization 07/2018 Overview (06/11/2018): Added automatically from request for surgery [id number] Abnormal stress test 04/19/2018 Overview (04/19/2018): Added automatically from request for surgery [id number] Bilateral plantar fasciitis 12/22/201708/2022 Diastolic heart failure 05/16/2017 Swelling of lower extremity 05/11/201708/2022 Carpal tunnel syndrome 01/09/2017 Laceration of hand 10/17/2016 08/12/2022 Obesity with body mass index 30 or greater 03/2608/12/2022 Pain of upper extremity 01/15/2016 08/13/19 23 Coronary artery disease 01/13/2015 Dyslipidemia 12/09/2014 Benign hypertension 12/09/2014 Chest pain 12/08/2014 Shortness of breath 12/08/2014 Family history of ischemic h eart disease and other diseases of the circulatory system 11/23/2014 08/12/2022 Common iliac aneurysm 06/19/2014 Overview (06/12/2016): Aneurysm, common iliac artery Immunizations Immunization Administration Dates Next Due Pfizer SARS-CoV-2 Monovalent Vaccination (12+ Yrs) PURPLE 08/16/2020,07/26/2020 Tdap 03/09/2013 Social History Tobacco Use Types Packs/Day Years Used Date Smoking Tobacco: Former Cigarettes 1 28 0 05/06/1971 - 05/06/1999 Passive Smoke Exposure: Past Smokeless Tobacco: Never Alcohol Use Standard Drinks/Week Comments Defer 0 (1 standard drink = 0.6 oz pur e alcohol) AUDIT-C Answer Date Recorded Q1: How often do you have a drink containing alcohol? 4 or more times a week 01/20/2024 Q2: How many drinks containi ng alcohol do you have on a typical day when you are drinking? 1 or 2 Q3: How often do you have si x or more drinks on one occasion? Never 01/20/2024 Personal Safety Answer Date Recorded Have you ever been in or are you currently in a harmful physical or emotional relationship or is someone making you feel afraid or unsafe? Denies 12/08/2023 Sex and Gender Information Value Date Recorded Sex Assigned at Not on file Legal Sex Male 2:38 AM WORKING SUPERVISOR Gender Identity Not on file Sexual Orientation Not on file Last Filed Vital Signs Vital Sign Reading Time Taken Comments Blood Pressure 144/91 01/27/2024 12:57 PM WORKING SUPERVISOR Pulse 74 01/27/2024 12:57 PM WORKING SUPERVISOR Temperature 36.2 C (97.1 F) 01/27/2024 12:57 PM WORKING SUPERVISOR Respiratory Rate 16 12/08/2023 10:45 AM CDT Oxygen Saturation 98% 01/27/2024 12:57 PM WORKING SUPERVISOR Inhaled Oxygen Concentration - - Weight 109.3 kg (241 lb) 01/27/2024 12:57 PM WORKING SUPERVISOR Height 177.8 cm (5' 10 ) 01/27/2024 12:57 PM WORKING SUPERVISOR Body Mass Index 34.58 01/27/2024 12:57 PM WORKING SUPERVISOR Plan of Treatment Not on file Medical Devices Implanted Type Area Social Work Job Titles Device Identifier Shelf Expiration Date Model / Serial / Lot [employer] [id number] Synergy 3mm 28mm 144cm Radiopaque 1 Access Port Inflation Lumen - [id number] Implanted:Qty: 1 on 06/24/2018 by Aiden Toussaint MD at [facility] [employer] 04/04/2020 [id number] / / [id number] Procedures Procedure Name Priority Date/Time Associated Diagnosis Comments US ARTERIAL DOPPLER LOWER EXTREMITY BILATERAL Schedule Routine, Read Routine (OP Routine) 05/05/2024 3:50 PM WORKING SUPERVISOR Iliac artery stenosis, right Iliac artery aneurysm LIPID PANEL Routine 02/17/2024 11:11 AM WORKING SUPERVISOR Dyslipidemia CTA ABDOMINAL AORTA AND BILATERAL ILIOFEMORAL RUNOFF Schedule Routine, Read Routine (OP Routine) 02/16/2024 9:02 AM WORKING SUPERVISOR Aneurysm of common iliac artery COLONOSCOPY 12/08/2023 9:55 AM CDT from Last 3 Months or Most Recently Relevant to Health Maintenance Results * US Arterial Doppler Lower Extremity Bilateral (05/05/2024 3:50 PM WORKING SUPERVISOR) Anatomical Region Laterality Modality Vascular Bilateral Ultrasound 05/05/2024 3:28 PM WORKING SUPERVISOR Narrative 05/05/2024 5:50 PM WORKING SUPERVISOR [facility] - Department of Vascular Surgery, Vascular Laboratory [address] [place] [address] Lower Extremity Arterial Doppler Report Patient Name: DEONTE FLOYD : 1955 Study Date: 05/05/2024 3:28:00 PM Gender: M Tech: Gela Montague [facility] Location: [facility] Provider: MAGGIE MOORE Quality: Adequate Order Provider: MAGGIE MOORE PROCEDURES: Arterial Report: Bilateral lower extremity arterial Doppler exam at rest. 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 MEASUREMENTS: Right Value Units Left Value Units Rt Brachial Pressure 127 mmHg Lt Brachial Pressure 136 mmHg Rt BOOTH CLEANER Pressure 135 mmHg Lt BOOTH CLEANER Pressure 133 mmHg Rt DPA Pressure 124 mmHg Lt DPA Pressure 149 mmHg Rt 1st Digit Pressure 116 mmHg Lt 1st Digit Pressure 115 mmHg Rt PT CAM Resting 0.99 Lt PT CAM Resting 0.98 Rt AT CAM Resting 0.91 Lt AT CAM Resting 1.1 Rt Digit/Arm Index 0.85 Lt Digit/Arm Index 0.85 Right Value Units Left Value Units FINDINGS: Performing Bowling Ball Grader And Marker: Yolie Montague RVT. Bilateral All Levels : The bilateral common femoral, popliteal, posterior tibial and anterior tibial artery waveforms are multiphasic. Right Digits: Normal right digit pressure and waveform. Left Digits: Normal left digit pressure and waveform. CONCLUSIONS: 1. The above listed Ankle/Brachial Indices at rest are within normal limits bilaterally (for reference, normal resting CAM is 0.9 to 1.4; CAM >1.4 due to non- compressible arteries is not diagnostic). 2. Bilateral Digit/Arm Indices are within normal limits (for reference, normal YOSSI is >0.6). HISTORY: PVD, HTN, HLD, CAD. PREVIOUS STUDIES: No previous studies for comparison. DISCLAIMER: The study images and the final report will be retained in the patient chart by the Vascular Laboratory for the legally required time period. This chart constitutes the legal record of any testing performed. ATTESTATION: I have reviewed and interpreted the pertinent images and measurements of this study. I attest to the conclusions in the final report that is provided above. Electronically Signed By: Erick Vega MD FACS 05/05/2024 4:57:07 PM WORKING SUPERVISOR Procedure Note Erick Vega MD - 05/05/2024 [facility] - Department of Vascular Surgery,Vascular Laboratory [address] [place] [id number] Lower Extremity Arterial Doppler Report Patient Name: DEONTE FLOYD : 1955 Study Date: 05/05/2024 3:28:00 PM Gender: M Tech: Gela Montague [place] Location: [facility] Provider: MAGGIE MOORE Quality: Adequate Order Provider: MAGGIE MOORE PROCEDURES: Arterial Report: Bilateral lower extremity arterial Doppler exam at rest. 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 MEASUREMENTS: Right Value Units Left Value Units Rt Brachial Pressure 127 mmHg Lt Brachial Pressure 136 mmHg Rt BOOTH CLEANER Pressure 135 mmHg Lt BOOTH CLEANER Pressure 133 mmHg Rt DPA Pressure 124 mmHg Lt DPA Pressure 149 mmHg Rt 1st Digit Pressure 116 mmHg Lt 1st Digit Pressure 115 mmHg Rt PT CAM Resting 0.99 Lt PT CAM Resting 0.98 Rt AT CAM Resting 0.91 Lt AT CAM Resting 1.1 Rt Digit/Arm Index 0.85 Lt Digit/Arm Index 0.85 Right Value Units Left Value Units FINDINGS: Performing Bowling Ball Grader And Marker: Yolie Montague RVT. Bilateral All Levels : The bilateral common femoral, popliteal, posterior tibial and anteriortibial artery waveforms are multiphasic. Right Digits: Normal right digit pressure and waveform. Left Digits: Normal left digit pressure and waveform. CONCLUSIONS: 1. The above listed Ankle/Brachial Indices at rest are within normallimits bilaterally (for reference, normal resting CAM is 0.9 to 1.4; CAM >1.4 due tonon- compressible arteries is not diagnostic). 2. Bilateral Digit/Arm Indices are within normal limits (for reference,normal YOSSI is >0.6). HISTORY: PVD, HTN, HLD, CAD. PREVIOUS STUDIES: No previous studies for comparison. DISCLAIMER: The study images and the final report will be retained in the patientchart by the Vascular Laboratory for the legally required time period. This chartconstitutes the legal record of any testing performed. ATTESTATION: I have reviewed and interpreted the pertinent images and measurements ofthis study. I attest to the conclusions in the final report that is provided above. Electronically Signed By: Erick Vega MD FACS 05/05/2024 4:57:07 PM WORKING SUPERVISOR Maggie Moore MD [facility] PROCEDURES Final Re sult * (ABNORMAL) Lipid panel (02/17/2024 11:11 AM WORKING SUPERVISOR) Cholesterol 150 <200 mg/dL [facility] HDL 44 > OR = 40 mg/dL [facility] Triglycerides 152(H) <150 mg/dL [facility] LDL 81 mg/dL (calc) [facility] Comment: Reference range: <100 Desirable range <100 mg/dL for primary prevention; <70 mg/dL for patients with CHD or diabetic patients with > or = 2 CHD risk factors. LDL-C is now calculated using the Chris-Tovar calculation, which is a validated novel method providing better accuracy than the Friedewald equation in the estimation of LDL-C. Chris SS et al. QUINN. 2013;310(19): 2566-6689 (http://education.[employer]/faq/WDU277) Chol/HDL ratio 3.4 <5.0 (calc) [facility] Non-HDL, (LDL+VLDL) 106 <130 mg/dL (calc) [facility] Comment: For patients with diabetes plus 1 major ASCVD risk factor, treating to a non-HDL-C goal of <100 mg/dL (LDL-C of <70 mg/dL) is considered a therapeutic option. Blood 02/17/2024 11:1 1 AM WORKING SUPERVISOR 02/17/2024 11:11 AM WORKING SUPERVISOR us Jeferson Macias MD LAB BLOOD ORDERABLES Final Res ult [address] [place] [address] [place] [place] [id number] * CTA Abdominal Aorta And Bilateral Iliofemoral Runoff (02/16/2024 9:02 AM WORKING SUPERVISOR) Anatomical Region Laterality Modality Body Bilateral Computed Tomogra phy 02/16/2024 11:1 7 AM WORKING SUPERVISOR Impressions 02/16/2024 12:29 PM WORKING SUPERVISOR 1. Right lower extremity: Severe focal stenosis of the right common iliac artery secondary to noncalcified atherosclerotic plaque and mild dilation measuring up to 2.1cm. 3 vessel runoff without significant stenosis in the outflow vessels 2. Left lower extremity: No significant stenosis in the inflow or outflow vessels. 3 vessel runoff. 3. Unchanged right hemiabdomen mesenteric lesion which previously did not exhibit FDG uptake with previous biopsy. Resolution of blood products within the right pericolic gutter. Dictated by: Bre Resendiz M.D. The radiology attending physician has personally reviewed this study, and had reviewed and/or edited this written report and agrees with it. Electronically signed by: Zackary Lee M.D. Narrative 02/16/2024 12:29 PM WORKING SUPERVISOR EXAMINATION: CT ANGIOGRAPHY OF THE ABDOMEN, PELVIS, AND LOWER EXTREMITIES WITH CONTRAST HISTORY: 68-year-old man with aneurysm of the common iliac artery, follow-up TECHNIQUE: CT angiography of the abdomen, pelvis, and lower extremities was performed following the uneventful intravenous administration of 120 ml Optiray-350. Vascular 3D images were generated on a dedicated workstation and also reviewed. COMPARISON: PET/CT on 12/30/2023. MR enterography on 11/16/2023 FINDINGS: VASCULAR FINDINGS: Abdominal Aorta and Branches: Celiac axis: Mild atherosclerotic disease SMA: no significant stenosis APOLLO: no significant stenosis Right renal vessels: Minimal atherosclerotic disease Left renal vessels: no significant stenosis Infrarenal aorta: No infrarenal abdominal aortic aneurysm. Mild atherosclerotic calcified and noncalcified disease. Pelvic Vessels: R. Common iliac artery: Severe stenosis secondary to noncalcified atherosclerotic plaque. Mild aneurysm measuring 2.1 cm x 1.9 cm R. External iliac artery: no significant stenosis R. Internal iliac artery: no significant stenosis L. Common iliac artery: Mild atherosclerotic disease. L. External iliac artery: no significant stenosis L. Internal iliac artery: Moderate proximal atherosclerotic disease resulting in moderate stenosis Right Lower Extremity: R. Common femoral artery: Mild atherosclerotic disease resulting in mild stenosis R. Profunda femoris artery: no significant stenosis R. Superficial femoral artery: no significant stenosis R. Popliteal artery: no significant stenosis R. Anterior tibial artery: no significant stenosis R. Tibioperoneal trunk: no significant stenosis R. Posterior tibial artery: no significant stenosis R. Peroneal artery: no significant stenosis R. Dorsalis pedis artery: no significant stenosis R. Plantar artery: no significant stenosis Left Lower Extremity: L. Common femoral artery: Mild atherosclerotic disease resulting in mild stenosis L. Profunda femoris artery: no significant stenosis L. Superficial femoral artery: no significant stenosis L. Popliteal artery: no significant stenosis L. Anterior tibial artery: no significant stenosis L. Tibioperoneal trunk: no significant stenosis L. Posterior tibial artery: no significant stenosis L. Peroneal artery: no significant stenosis L. Dorsalis pedis artery: no significant stenosis L. Plantar artery: no significant stenosis NON-VASCULAR FINDINGS: Left greater than right basilar subsegmental atelectasis. No basilar pneumothorax or pleural effusion. No suspicious pulmonary nodules. Imaged heart size is normal without pericardial effusion. Mild reflux of contrast within the intrahepatic inferior vena cava and hepatic veins. Cysts in hepatic segment 7 and IVb are unchanged. No suspicious hepatic lesion. No intrahepatic or extrahepatic biliary ductal dilation. Spleen, adrenal glands, pancreas, gallbladder, stomach and duodenum are normal. Kidneys enhance symmetrically without hydronephrosis or nephrolithiasis. Tiny hypoattenuating lesion left kidney which is too small to characterize but likely represents a cyst. A bladder is normal. Prostate is enlarged. Bilateral fat-containing inguinal hernias. Large and small bowel are normal in caliber without evidence of obstruction. Appendix is absent. No pneumoperitoneum or ascites. Interval resolution of blood products in the right paracolic gutter adjacent to cecum. Persistent soft tissue mesenteric mass measuring 3.5 x 3.1 cm No abdominal or pelvic lymphadenopathy. Mild retrolisthesis of L5 on S1. No suspicious osseous lesions. Procedure Note Rosa, Zackary Shashindra, MD - 02/16/2024 EXAMINATION: CT ANGIOGRAPHY OF THE ABDOMEN, PELVIS, AND LOWER EXTREMITIES WITH CONTRAST HISTORY: 68-year-old man with aneurysm of the common iliac artery, follow-up TECHNIQUE: CT angiography of the abdomen, pelvis, and lower extremities was performed following the uneventful intravenous administration of 120 ml Optiray-350. Vascular 3D images were generated on a dedicated workstation and also reviewed. COMPARISON: PET/CT on 12/30/2023. MR enterography on 11/16/2023 FINDINGS: VASCULAR FINDINGS: Abdominal Aorta and Branches: Celiac axis: Mild atherosclerotic disease SMA: no significant stenosis APOLLO: no significant stenosis Right renal vessels: Minimal atherosclerotic disease Left renal vessels: no significant stenosis Infrarenal aorta: No infrarenal abdominal aortic aneurysm. Mild atherosclerotic calcified and noncalcified disease. Pelvic Vessels: R. Common iliac artery: Severe stenosis secondary to noncalcified atherosclerotic plaque. Mild aneurysm measuring 2.1 cm x 1.9 cm R. External iliac artery: no significant stenosis R. Internal iliac artery: no significant stenosis L. Common iliac artery: Mild atherosclerotic disease. L. External iliac artery: no significant stenosis L. Internal iliac artery: Moderate proximal atherosclerotic disease resulting in moderate stenosis Right Lower Extremity: R. Common femoral artery: Mild atherosclerotic disease resulting in mild stenosis R. Profunda femoris artery: no significant stenosis R. Superficial femoral artery: no significant stenosis R. Popliteal artery: no significant stenosis R. Anterior tibial artery: no significant stenosis R. Tibioperoneal trunk: no significant stenosis R. Posterior tibial artery: no significant stenosis R. Peroneal artery: no significant stenosis R. Dorsalis pedis artery: no significant stenosis R. Plantar artery: no significant stenosis Left Lower Extremity: L. Common femoral artery: Mild atherosclerotic disease resulting in mild stenosis L. Profunda femoris artery: no significant stenosis L. Superficial femoral artery: no significant stenosis L. Popliteal artery: no significant stenosis L. Anterior tibial artery: no significant stenosis L. Tibioperoneal trunk: no significant stenosis L. Posterior tibial artery: no significant stenosis L. Peroneal artery: no significant stenosis L. Dorsalis pedis artery: no significant stenosis L. Plantar artery: no significant stenosis NON-VASCULAR FINDINGS: Left greater than right basilar subsegmental atelectasis. No basilar pneumothorax or pleural effusion. No suspicious pulmonary nodules. Imaged heart size is normal without pericardial effusion. Mild reflux of contrast within the intrahepatic inferior vena cava and hepatic veins. Cysts in hepatic segment 7 and IVb are unchanged. No suspicious hepatic lesion. No intrahepatic or extrahepatic biliary ductal dilation. Spleen, adrenal glands, pancreas, gallbladder, stomach and duodenum are normal. Kidneys enhance symmetrically without hydronephrosis or nephrolithiasis. Tiny hypoattenuating lesion left kidney which is too small to characterize but likely represents a cyst. A bladder is normal. Prostate is enlarged. Bilateral fat-containing inguinal hernias. Large and small bowel are normal in caliber without evidence of obstruction. Appendix is absent. No pneumoperitoneum or ascites. Interval resolution of blood products in the right paracolic gutter adjacent to cecum. Persistent soft tissue mesenteric mass measuring 3.5 x 3.1 cm No abdominal or pelvic lymphadenopathy. Mild retrolisthesis of L5 on S1. No suspicious osseous lesions. IMPRESSION: 1. Right lower extremity: Severe focal stenosis of the right common iliac artery secondary to noncalcified atherosclerotic plaque and mild dilation measuring up to 2.1cm. 3 vessel runoff without significant stenosis in the outflow vessels 2. Left lower extremity: No significant stenosis in the inflow or outflow vessels. 3 vessel runoff. 3. Unchanged right hemiabdomen mesenteric lesion which previously did not exhibit FDG uptake with previous biopsy. Resolution of blood products within the right pericolic gutter. Dictated by: Bre Resendiz M.D. The radiology attending physician has personally reviewed this study, and had reviewed and/or edited this written report and agrees with it. Electronically signed by: Zackary Lee M.D. Jeferson Macias MD IMG CT PROCEDURES Final Result * Colonoscopy (12/08/2023 9:55 AM CDT) Anatomical Region Laterality Modality Other Narrative Procedure Note Freddie Reed MD - 12/08/2023 9:55 AM CDT ENDOSCOPY LAB Patient Name: Deonte Floyd Procedure Date: 12/08/2023 9:55 AM Date of : 1955 Admit Type: Outpatient Age: 67 Gender: Male Attending MD: Freddie Reed M.D. Room: [facility] ENDOSCOPY ROOM 01 Note Status: Finalized Procedure: Colonoscopy Indications: Screening for colorectal malignant neoplasm, Last colonoscopy: 2013, Incidental - Abnormal CT of theGI tract Providers: Freddie Reed M.D. Referring MD: BETTY Olguin Medicines: Monitored Anesthesia Care Complications: No immediate complications. Estimated Blood Loss: Estimated blood loss was minimal. Procedure: Pre-Anesthesia Assessment: - Prior to the procedure, a History and Physicalwas performed, and patient medications, allergies and sensitivities were reviewed. The patient'stolerance of previous anesthesia was reviewed. - Immediately prior to administration ofmedications, the patient was re-assessed for adequacy to receive sedatives. The benefits, risks and alternatives of theprocedure and sedation were discussed and informed consentwas obtained. All questions were answered. Please referto the signed informed consent document in the medical record. The scope was passed under direct vision.The [id number] was introduced through the anusand advanced to the terminal ileum. The colonoscopy was performed without difficulty. The quality of thebowel preparation was evaluated using the BBPS (BostonBowel Preparation Scale) with scores of: Right Colon = 3, Transverse Colon = 3 and Left Colon = 3 (entiremucosa seen well with no residual staining, smallfragments of stool or opaque liquid). The total BBPS score equals 9. AI Technology was utilized during the procedure to aid in polyp detection. Findings: Hemorrhoids were found on perianal exam. The terminal ileum appeared normal. Biopsies were taken with a cold forceps for histology. The ileocecal valve was moderately lipomatous. Biopsies were takenwith a cold forceps for histology. The exam was otherwise without abnormality on direct and retroflexion views. Impression: - Hemorrhoids found on perianal exam. - The examined portion of the ileum was normal. Biopsied. - Lipomatous ileocecal valve. Biopsied. - The examination was otherwise normal on directand retroflexion views. Recommendation: - Await pathology results. - Repeat colonoscopy in 10 years for screening purposes. - . Electronically signed by Freddie Reed MD Freddie Reed M.D. 12/08/2023 10:22:53 AM Number of Addenda: 0 Note Initiated On: 12/08/2023 9:55 AM Freddie Reed MD ENDOSCOPY PROCEDURES Final Resu lt from Last 3 Months or Most Recently Relevant to Health Maintenance Insurance [facility] ACCESS MEDICARE SOLUTIONS MEDICARE [facility] MEDIC[facility] Address: [id number] [place] [address] Advance Directives For more information, please contact: [phone] * Full Code (Latest Code Status on File) Date Activated Date Inactivated Comments 12/08/2023 8:42 AM 12/08/2023 3:07 PM * Full Code Date Activated Date Inactivated Comments 11/25/2023 8:38 AM 11/26/2023 5:15 AM * Full Code Date Activated Date Inactivated Comments 06/24/2018 10:35 AM 06/24/2018 6:55 PM Care Teams Photovoltaic Installer Relationship Specialty Start Date End Date Kymberly Arauz NP [address] [place], [place] [id number] PCP - General Nurse Practitioner 07/27/23
--- OUTSIDE RECORDS SUMMARY | 2024-05-17 14:56 | XMS_ITS | Encounter Summary ---
Author Organization [facility] Health Address [address] [address] Care Team Providers Care Atv Mechanic Name Role Phone Nay Verduzco MD Primary Care Provider Encounter Details Date Type Department Care Team (Late st Contact Info) Description 10/29/2023 Lab Requisition [facility] - Pathology Lab [address] [place] [address] Christos Agee MD [address] [facility] [address] [place] [id number] Unspecified abdominal pain; Essential (primary) hypertension Social History Tobacco Use Types Packs/Day Years Used Date Smoking Tobacco: Never Assessed Sex and Gender Information Value Date Recorded Sex Assigned at Not on file Gender Identity Not on file Sexual Orientation Not on file documented as of this encounter Plan of Treatment Not on file documented as of this encounter Procedures Procedure Name Priority Date/Time Associated Diagnosis Comments FLOW CYTOMETRY TISSUE PANEL Routine 10/29/2023 11:58 AM CDT Unspecified abdominal pain Essential (primary) hypertension documented in this encounter Results * FLOW CYTOMETRY TISSUE PANEL (10/29/2023 11:58 AM CDT) Case Report Flow Cytometry Case: [id number] Authorizing Provider: Christos Agee Collected: 10/29/2023 11:58 AM MD Xu Ordering Location: [facility] - Received: 10/29/2023 04:03 PM Pathology Lab Pathologist: Annabel Kerr MD Specimen: Abdomen, Lymphnode 10/29/2023 5:01 PM [facility] Final Diagnosis Mesenteric mass, flow cytometric immunophenotypic analysis: - Insufficient hematopoietic cells for analysis - See interpretation 10/29/2023 5:01 PM [facility] Flow Cytometry Interpretation Preliminary characterization of the mesenteric mass specimen demonstrates too few hematopoietic cells for flow cytometric analysis. A cytospin prepared from the flow cytometry specimen is reviewed for quality and reliability engineer purposes. Scattered erythrocytes and debris are seen. Flow cytometry is not performed. 10/29/2023 5:01 PM [facility] Flow Cytometry Results Too few hematopoietic cells for flow cytometric analysis. 10/29/2023 5:01 PM [facility] Reason for test Unspecified abdominal pain Essential (primary) hypertension 401.9 10/29/2023 5:01 PM [facility] Client Specimen ID # [id number] 10/29/2023 5:01 PM [facility] Pathologist Location at [facility] 10/29/2023 5:01 PM [facility] Disclaimer Test performed at [facility], [address] [place] [address], [address]. *The established laboratory minimum viability is 70%. Values below the minimum may result in the failure to find an abnormal population of cells. This test was developed and its performance characteristics determined by the Flow Cytometry Laboratory. It has not been cleared by the [place] Food and Drug Administration (FDA). The FDA has determined that such clearance or approval is not necessary. This test is used for clinical purposes. It should not be regarded as investigational or for research. This laboratory is regulated under the Clinical Laboratory Improvement Amendments of 1998 (CLIA) as a qualified to perform high complexity clinical testing. 10/29/2023 5:01 PM [facility] Embedded Images 5:01 PM [facility] Pathology/Cytolo gy ABDOMEN AND PELVIS / Unknown 10/29/2023 11:58 AM CDT 10/29/2023 4:03 PM CDT Christos Agee MD LAB - PATHO LOGY/CYTOLOGY ORDERABLES [facility] [address] [facility] [phone] documented in this encounter Visit Diagnoses Diagnosis Unspecified abdominal pain Essential (primary) hypertension Unspecified essential hypertension documented in this encounter Care Teams Atv Mechanic Relationship Specialty Start Date End Date Nay Verduzco MD [address] [place] [phone] PCP - General 07/21/18 documented as of this encounter
--- OUTSIDE RECORDS SUMMARY | 2024-05-17 14:56 | XMS_ITS | Patient Health Summary ---
Author Organization [facility] Address [address] [facility] [place] [address] Care Team Providers Care Percussion Teacher Name Role Phone Nay Verduzco MD Primary Care Provider Note from [facility],non-owned Affiliates and Associated Physician Practices is amultiple site organization consisting of ambulatory clinics and hospital sitesin [place], [place], [place] and [place]. This disclosure is being madepursuant to the Care Everywhere program and may not contain all information available regarding this patient. Last updated 17.[facility] Social History Tobacco Use Types Packs/Day Years Used Date Smoking Tobacco: Never Assessed Sex and Gender Information Value Date Recorded Sex Assigned at Not on file Gender Identity Not on file Sexual Orientation Not on file Last Filed Vital Signs Vital Sign Reading Time Taken Comments Blood Pressure 164/90 08/21/2015 9:41 PM CDT Pulse 83 08/21/2015 9:41 PM CDT Temperature 36.9 C (98.4 F) 08/21/2015 9:41 PM CDT Respiratory Rate 12 08/21/2015 9:41 PM CDT Oxygen Saturation 99% 08/21/2015 9:41 PM CDT Inhaled Oxygen Concentration - - Weight 103.4 kg (228 lb) 08/21/2015 9:41 PM CDT Height 177.8 cm (5' 10 ) 08/21/2015 9:41 PM CDT Body Mass Index 32.71 08/21/2015 9:41 PM CDT Procedures * FLOW CYTOMETRY TISSUE PANEL(Performed 10/29/2023) Performed for Unspecified abdominal pain, Essential (primary) hypertension Results * FLOW CYTOMETRY TISSUE PANEL (10/29/2023 11:58 AM CDT) Case Report Flow Cytometry Case: [id number] Authorizing Provider: Christos Agee Collected: 10/29/2023 11:58 AM MD Xu Ordering Location: [facility] - Received: 10/29/2023 04:03 PM Pathology Lab Pathologist: Annabel Kerr MD Specimen: Abdomen, Lymphnode 10/29/2023 5:01 PM CDT [facility] Final Diagnosis Mesenteric mass, flow cytometric immunophenotypic analysis: - Insufficient hematopoietic cells for analysis - See interpretation 10/29/2023 5:01 PM T [facility] Flow Cytometry Interpretation Preliminary characterization of the mesenteric mass specimen demonstrates too few hematopoietic cells for flow cytometric analysis. A cytospin prepared from the flow cytometry specimen is reviewed for assistant quality manager purposes. Scattered erythrocytes and debris are seen. Flow cytometry is not performed. 10/29/2023 5:01 PM T [facility] Flow Cytometry Results Too few hematopoietic cells for flow cytometric analysis. 10/29/2023 5:01 PM CDT [facility] Reason for test Unspecified abdominal pain Essential (primary) hypertension 401.9 10/29/2023 5:01 PM T [facility] Client Specimen ID # [id number] 10/29/2023 5:01 PM CDT [facility] Pathologist Location at [facility] 10/29/2023 5:01 PM CDT [facility] Disclaimer Test performed at [facility], [address] [place] [address], [address]. *The established laboratory minimum viability is 70%. [...] high complexity clinical testing. 10/29/2023 5:01 PM CDT [facility] Embedded Images 5:01 PM CDT [facility] Pathology/Cytolo gy ABDOMEN AND PELVIS / Unknown 10/29/2023 11:58 AM CDT 10/29/2023 4:03 PM CDT Christos Agee MD LAB - PATHO LOGY/CYTOLOGY ORDERABLES Performing Organization Address City/State/[facility] Co de Phone Number [facility] [address] [phone] Care Teams Percussion Teacher Relationship Specialty Start Date End Date Nay Verduzco MD [address] [place] [phone] PCP - General 07/21/18
--- OUTSIDE RECORDS SUMMARY | 2024-05-17 14:56 | XMS_ITS | Encounter Summary ---
Author Organization [facility] Address [address] [place] [address] Phone Care Team Providers Care Italian Teacher Name Role Phone BernarddreaKymberly NP Primary Care Provider [phone] Encounter Details Date Type Department Care Team (Late st Contact Info) Description 03/16/2024 Telephone [facility] Cardiology [address] [facility] 8th [place] [address] [place] [address] Jeferson Macias MD [address] 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
--- OUTSIDE RECORDS SUMMARY | 2024-05-17 14:56 | XMS_ITS | Clinical Summary ---
Author Organization [facility] Address [address] [place] [address] Phone Care Team Providers Care Certified Professional Controller Name Role Phone Kymberly Arauz BETTY Primary Care Provider [phone] Allergies Active Allergy Reactions Criticality Noted Date Comments Penicillins Anaphylaxis,Shortnes s of Breath/Wheezing High 03/23/2020 Medications rosuvastatin (CRESTOR) 20 mg tablet Take 20 mg by mouth daily. Active quinapriL (ACCUPRIL) 40 mg tablet Take 40 mg by mouth daily. Active metoprolol succinate (TOPROL XL) 12.5 mg Extended Release 24 hour tablet Take 12.5 mg by mouth daily. Active clopidogreL (PLAVIX) 75 mg Tablet Take 75 mg by mouth. Active aspirin (ECOTRIN EC) 81 mg Tablet, Delayed Release (E.C.) Take 81 mg by mouth daily. Active cyanocobalamin 1,000 mcg Tablet Take 1,000 mcg by mouth daily. Active cholecalciferol, Vitamin D3, 50 mcg (2,000 unit) Tablet Take 2,000 Units by mouth daily. Active ascorbic acid, vitamin C, (VITAMIN C) 1,000 mg Tablet Take 1,000 mg by mouth daily. Active Active Problems No known active problems Family History Medical History Relation Name Comments High Cholesterol Brother Hypertension Brother Other Brother tobacco use High Cholesterol Father Hypertension Father Other Father tobacco use Diabetes Maternal Grandmother Heart Disease Maternal Grandmother High Cholesterol Maternal Grandmother Diabetes Mother Heart Disease Mother High Cholesterol Mother Hypertension Mother Other Mother tobacco use Diabetes Other 1 Aunt Heart Disease Other 1 Aunt High Cholesterol Other 1 Aunt Other Other 1 Aunt tobacco use Heart Disease Other 2 Uncle Other Other 2 Uncle tobacco use Diabetes Paternal Grandmother Heart Disease Paternal Grandmother High Cholesterol Paternal Grandmother Clotting Disorder Sister Diabetes Sister Heart Disease Sister High Cholesterol Sister Hypertension Sister Other Sister tobacco use Relation Name Status Comments Brother Father Maternal Grandmother Mother Other 1 Aunt Alive Other 2 Uncle Alive Paternal Grandmother Sister Social History Tobacco Use Types Packs/Day Years Used Date Smoking Tobacco: Former Cigarettes Q uit: 08/13/1999 Smokeless Tobacco: Never Alcohol Use Standard Drinks/Week Comments Yes 0 (1 standard drink = 0.6 oz pur e alcohol) Sex and Gender Information Value Date Recorded Sex Assigned at Not on file Legal Sex Male 9:39 AM SIZING SPONGER Gender Identity Not on file Sexual Orientation Not on file Last Filed Vital Signs Vital Sign Reading Time Taken Comments Blood Pressure 150/92 03/23/2020 9:06 AM SIZING SPONGER Pulse 58 03/23/2020 9:06 AM SIZING SPONGER Temperature 36.6 C (97.9 F) 03/23/2020 9:06 AM SIZING SPONGER Respiratory Rate - - Oxygen Saturation - - Inhaled Oxygen Concentration - - Weight 111.1 kg (245 lb) 03/23/2020 9:06 AM SIZING SPONGER Height 177.8 cm (5' 10 ) 03/23/2020 9:06 AM SIZING SPONGER Body Mass Index 35.15 03/23/2020 9:06 AM SIZING SPONGER Plan of Treatment Health Maintenance Due Date Last Done Comments COLORECTAL SCREENING 2002 Colorectal Cancer Screening 2002 FIT-DNA Q 3 years 2002 FIT/FOBT Q 1 year 2002 Flex Sig/CT Colonography Q 5 years 2002 PNEUMOCOCCAL VACCINE 50+ YEARS (1 of 1 - PCV) 12/15/19 08 ZOSTER VACCINE (1 of 2) 12/15/2007 DTAP/TDAP/TD VACCINES (2 - Td or Tdap) 03/09/2023 INFLUENZA VACCINE (#1) 2023 RSV VACCINE (60+ or ) (1 - 1-dose 75+ series) 2032 Insurance [employer] BLUE ACCESS/TRUE BLUE PPO Care Teams Certified Professional Controller Relationship Specialty Start Date End Date Kymberly Arauz ANP [address] [phone] PCP - General Nurse Practitioner Adult Health 03/23/20
--- OUTSIDE RECORDS SUMMARY | 2024-05-17 14:56 | XMS_ITS | Clinical Summary ---
Author Organization [facility] Address [address] [place] [address] Care Team Providers Care Fermentation Engineer Name Role Phone Kymberly Arauz NP Primary Care Provider [phone] Allergies Active Allergy Reactions Criticality Noted Date [...] 08/12/2022 08/12/2022 Carotid artery stenosis 08/12/2022 08/13/19 Chronic obstructive lung disease 08/12/2022 08/12/2022 Colitis 08/12/2022 08/12/2022 Cough 08/12/2022 08/12/2022 Dysuria 08/12/2022 08/12/2022 Excessive sweating 08/12/2022 08/12/2022 Chronic fatigue syndrome 08/12/2022 023 Hemorrhoids 08/12/2022 08/12/2022 Hypercholesterolemia 08/12/2022 08/12/2022 Intermittent palpitations 08/12/20222022 Neoplasm of bone 08/12/2022 08/12/2022 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 08/12/2022 Umbilical hernia 08/12/2022 08/12/2022 Upper respiratory infection 08/12/202208/2022 Vitamin D deficiency 08/12/2022 08/12/2022 Degeneration of lumbar intervertebral disc 07/0208/12/2022 Chronic low back pain 05/27/2022 08/12/2022 Erectile dysfunction 05/27/2022 08/12/2022 Isolated thrombocytopenia 11/06/20202022 History of severe acute resp iratory syndrome coronavirus 2 (SARS-CoV-2) disease 10/31/2020 08/12/2022 COVID-19 02/07/2020 08/12/2022 Abnormal findings on cardiac catheterization 07/2018 Overview (06/11/2018): Added automatically from request for surgery [id number] Abnormal stress test 04/19/2018 Overview (04/19/2018): Added automatically from request for surgery [id number] Bilateral plantar fasciitis 12/22/20170 08/2022 Diastolic heart failure 05/16/2017 Swelling of lower extremity 05/11/201708/2022 Carpal tunnel syndrome 01/09/2017 Laceration of hand 10/17/2016 08/12/2022 Obesity with body mass index 30 or greater 03/2608/12/2022 Pain of upper extremity 01/15/2016 08/13/19 Coronary artery disease 01/13/2015 Dyslipidemia 12/09/2014 Benign hypertension 12/09/2014 Chest pain 12/08/2014 Shortness of breath 12/08/2014 Family history of ischemic h eart disease and other diseases of the circulatory system 11/23/2014 08/12/2022 Common iliac aneurysm 06/19/2014 Overview (06/12/2016): Aneurysm, common iliac artery Encounters Date Type Department Care Team Description 05/05/2024 3:15 PM MANAGER MEETING Ancillary Procedure [facility] Vascular Lab at the [facility] Medicine [address] [facility] Medicine 8th [place] [address] [place] [address] Iliac artery stenosis, right; Iliac artery aneurysm 04/26/2024 Telephone [facility] Surgery [address] [facility] Floor 1 [place] [address] Maggie Moore MD 04/06/2024 Telephone [facility] Cardiology [address] [facility] Medicine 8th [place] [address] [place] [address] Jeferson Macias MD 03/16/2024 Telephone [facility] Cardiology [address] [facility] Medicine 8th [place] [address] [place] [address] Jeferson Macias MD 02/19/2024 Orders Only [facility] Vascular Surgery [address] [facility] Medical Office Building [address] [place] [address] Maggie Moore MD Iliac artery stenosis, right (Primary Dx); Iliac artery aneurysm from Last 3 Months Immunizations Immunization Administration Dates Next Due Pfizer SARS-CoV-2 Monovalent Vaccination (12+ Yrs) PURPLE 08/16/2020,07/26/2020 Tdap 03/09/2013 Surgical History Surgery Date Site/Laterality Comments HEMORRHOID SURGERY HAND SURGERY 03/09/1978 - 03/08/1979 Left HAND SURGERY 03/09/2013 - 03/08/2014 Right INCISIONAL HERNIA REPAIR 03/09/2013 - 03/08/2014 ORAL SURGERY HAND SURGERY 03/09/2016 - 03/08/2017 Left tendon WRIST SURGERY 03/09/2016 - 03/08/2017 Left nerve decompression APPENDECTOMY CORONARY ANGIOPLASTY WITH STENT PLACEMENT 03/09/2018 - 03/08/2019 KNEE ARTHROSCOPY 03/09/1995 - 03/08/1996 Right Medical History Medical History Date Comments Hyperlipidemia Hypertension Arthritis JUAN PABLO (obstructive sleep apnea) PVD (peripheral vascular disease) Gastric ulcer h/o BPH (benign prostatic hyperplasia) Diverticulitis Coronary artery disease CHF (congestive heart failure) (HCC) diastolic Family History Medical History Relation Name Comments Aortic aneurysm Father Heart attack Father Coronary artery disease Mother Diabetes Mother Heart attack Mother Stroke Mother Coronary artery disease Sister 1 Heart disease Sister 1 Pulmonary embolism Sister 2 No Known Problems Son 1 No Known Problems Son 2 Multiple sclerosis Son 3 Colon cancer Neg Hx Stomach cancer Neg Hx Relation Name Status Comments Father Mother Sister 1 Sister 2 Son 1 Alive Son 2 Alive Son 3 Social History Tobacco Use Types Packs/Day Years [...] on file Legal Sex Male 2:38 AM MANAGER MEETING Gender Identity Not on file Sexual Orientation Not on file Obstetrics History Last Filed Vital Signs Vital Sign Reading Time Taken Comments Blood Pressure 144/91 01/27/2024 12:57 PM MANAGER MEETING Pulse 74 01/27/2024 12:57 PM MANAGER MEETING Temperature 36.2 C (97.1 F) 01/27/2024 12:57 PM MANAGER MEETING Respiratory Rate 16 12/08/2023 10:45 AM CDT Oxygen Saturation 98% 01/27/2024 12:57 PM MANAGER MEETING Inhaled Oxygen Concentration - - Weight 109.3 kg (241 lb) 01/27/2024 12:57 PM MANAGER MEETING Height 177.8 cm (5' 10 ) 01/27/2024 12:57 PM MANAGER MEETING Body Mass Index 34.58 01/27/2024 12:57 PM MANAGER MEETING Plan of Treatment Health Maintenance Due Date Last Done Comments Depression Screening 1955 Hepatitis C Screening 1955 Prostate Cancer Screening-PSA 1955 Hepatitis B Screening 12/15/1975 Pneumococcal vaccine 65+ (1 of 2 - PCV) 1976 Zoster Vaccine (1 of 2) 12/15/2007 Well Visit 65+ 2022 DTaP/Tdap/Td Vaccine (2 - Td or Tdap) 03/09/2023 03/09/2013 Covid-19 Vaccine (3 - 2023-2 5 season) 2023 08/16/2020, 07/26/2020 Influenza Vaccine (#1) 2023 Fall Risk Assessment 12/07/2024 12/08/2023 Colon Cancer Screening-Colonoscopy 12/07/20332023 Colon Cancer Screening-CT Colonography Discontinued 12/08/2023 Colon Cancer Screening-DNA Stool Discontinued 12/08/19 Colon Cancer Screening-FIT Discontinued 12/08/2023 Colon Cancer Screening-Sigmoidoscopy Discontinued 03/2023 Abdominal Aortic Aneurysm (A AA) Screen Completed 02/16/2024, 01/19/2015, 07/05/2014 Medical Devices Implanted Type Area Domestic Technician Device Identifier Shelf Expiration Date Model / Serial / Lot [employer] [id number] Synergy 3mm 28mm 144cm Radiopaque 1 Access Port Inflation Lumen - [id number] Implanted:Qty: 1 on 06/24/2018 by Aiden Toussaint MD at [facility] [employer] 04/04/2020 [id number] / / [id number] Procedures Procedure Name Priority Date/Time Associated Diagnosis Comments US ARTERIAL DOPPLER LOWER EXTREMITY BILATERAL Schedule Routine, Read Routine (OP Routine) 05/05/2024 3:50 PM MANAGER MEETING Iliac artery stenosis, right Iliac artery aneurysm LIPID PANEL Routine 02/17/2024 11:11 AM MANAGER MEETING Dyslipidemia CTA ABDOMINAL AORTA AND BILATERAL ILIOFEMORAL RUNOFF Schedule Routine, Read Routine (OP Routine) 02/16/2024 9:02 AM MANAGER MEETING Aneurysm of common iliac artery COLONOSCOPY 12/08/2023 9:55 AM CDT from Last 3 Months or Most Recently Relevant to Health Maintenance Results * US Arterial Doppler Lower Extremity Bilateral (05/05/2024 3:50 PM MANAGER MEETING) Anatomical Region Laterality Modality Vascular Bilateral Ultrasound 05/05/2024 3:28 PM MANAGER MEETING Narrative 05/05/2024 5:50 PM MANAGER MEETING [facility] - Department of Vascular Surgery, Vascular Laboratory [address] [place] [address] Lower Extremity Arterial Doppler Report Patient Name: DEONTE FLOYD : 1955 Study Date: 05/05/2024 3:28:00 PM Gender: M Tech: Gela Montague Hugo Location: [facility] Provider: MAGGIE MOORE Quality: Adequate Order Provider: MAGGIE MOORE PROCEDURES: Arterial Report: Bilateral lower extremity arterial Doppler exam at rest. 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 MEASUREMENTS: Right Value Units Left Value Units Rt Brachial Pressure 127 mmHg Lt Brachial Pressure 136 mmHg Rt PSYCHOLOGIST ENGINEERING Pressure 135 mmHg Lt PSYCHOLOGIST ENGINEERING Pressure 133 mmHg Rt DPA Pressure 124 mmHg Lt DPA Pressure 149 mmHg Rt 1st Digit Pressure 116 mmHg Lt 1st Digit Pressure 115 mmHg Rt PT CAM Resting 0.99 Lt PT CAM Resting 0.98 Rt AT CAM Resting 0.91 Lt AT CAM Resting 1.1 Rt Digit/Arm Index 0.85 Lt Digit/Arm Index 0.85 Right Value Units Left Value Units FINDINGS: Performing Chief Compliance Officer: Yolie Montague RVT. Bilateral All Levels : [...] Erick Vega MD FACS 05/05/2024 4:57:07 PM MANAGER MEETING Procedure Note Erick Vega MD - 05/05/2024 [facility] - Department of Vascular Surgery,Vascular Laboratory [address] [place] [address] Lower Extremity Arterial Doppler Report Patient Name: DEONTE FLOYD : 1955 Study Date: 05/05/2024 3:28:00 PM Gender: M Tech: Gela Montague RVT Location: [facility] Provider: MAGGIE MOORE Quality: Adequate Order Provider: MAGGIE MOORE PROCEDURES: Arterial Report: Bilateral lower extremity arterial Doppler exam at rest. 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 MEASUREMENTS: Right Value Units Left Value Units Rt Brachial Pressure 127 mmHg Lt Brachial Pressure 136 mmHg Rt PSYCHOLOGIST ENGINEERING Pressure 135 mmHg Lt PSYCHOLOGIST ENGINEERING Pressure 133 mmHg Rt DPA Pressure 124 mmHg Lt DPA Pressure 149 mmHg Rt 1st Digit Pressure 116 mmHg Lt 1st Digit Pressure 115 mmHg Rt PT CAM Resting 0.99 Lt PT CAM Resting 0.98 Rt AT CAM Resting 0.91 Lt AT CAM Resting 1.1 Rt Digit/Arm Index 0.85 Lt Digit/Arm Index 0.85 Right Value Units Left Value Units FINDINGS: Performing Chief Compliance Officer: Yolie Montague RVT. Bilateral All Levels : [...] Erick Vega MD FACS 05/05/2024 4:57:07 PM MANAGER MEETING Maggie Moore MD [facility] PROCEDURES Final Re sult * (ABNORMAL) Lipid panel (02/17/2024 11:11 AM MANAGER MEETING) Cholesterol 150 <200 mg/dL [facility] [...] factors. LDL-C is now calculated using the Chris-Guy calculation, which is a validated novel method providing better accuracy than the Friedewald equation in the estimation of LDL-C. Chris CAZARES et al. QUINN. 2013;310(19): 2561-3347 (http://education.[employer]/faq/YOA032) Chol/HDL ratio 3.4 <5.0 (calc) [facility] Non-HDL, (LDL+VLDL) 106 <130 mg/dL (calc) [facility] Comment: For patients with diabetes plus 1 major ASCVD risk factor, treating to a non-HDL-C goal of <100 mg/dL (LDL-C of <70 mg/dL) is considered a therapeutic option. Blood 02/17/2024 11:1 1 AM MANAGER MEETING 02/17/2024 11:11 AM MANAGER MEETING us Jeferson Macias MD LAB BLOOD ORDERABLES Final Res ult JULIAN [address] [place] [id number] [address] [place] [id number] * CTA Abdominal Aorta And Bilateral Iliofemoral Runoff (02/16/2024 9:02 AM MANAGER MEETING) Anatomical Region Laterality Modality Body Bilateral Computed Tomogra phy 02/16/2024 11:1 7 AM MANAGER MEETING Impressions 02/16/2024 12:29 PM MANAGER MEETING 1. Right lower extremity: Severe focal stenosis [...] Zackary Lee M.D. Narrative 02/16/2024 12:29 PM MANAGER MEETING EXAMINATION: CT ANGIOGRAPHY OF THE ABDOMEN, PELVIS, [...] S1. No suspicious osseous lesions. Procedure Note Zackary Lee MD - 02/16/2024 EXAMINATION: CT ANGIOGRAPHY OF [...] by: Zackary Lee M.D. Jeferson Macias MD IM CT PROCEDURES Final Result * Colonoscopy (12/08/2023 9:55 AM CDT) Anatomical Region Laterality Modality Other Narrative Procedure Note Freddie Reed MD - 12/08/2023 9:55 AM CDT ENDOSCOPY LAB Patient Name: Deonte Floyd Procedure Date: 12/08/2023 9:55 AM Date of : 1955 Admit Type: Outpatient Age: 67 Gender: Male Attending MD: Freddie Reed M.D. Room: [facility] ENDOSCOPY ROOM 01 Note Status: Finalized Procedure: [...] The scope was passed under direct vision.The [id number] was introduced through the anusand advanced to [...] Most Recently Relevant to Health Maintenance Insurance [facility] ACCESS MEDICARE SOLUTIONS [facility] MEDICARE Address: [address] [address] [place] [address] MEDICARE Viscose Closures Advance Directives For more information, please contact: [phone] * Full Code (Latest Code Status on File) Date Activated Date Inactivated Comments 12/08/2023 8:42 AM 12/08/2023 3:07 PM * Full Code Date Activated Date Inactivated Comments 11/25/2023 8:38 AM 11/26/2023 5:15 AM * Full Code Date Activated Date Inactivated Comments 06/24/2018 10:35 AM 06/24/2018 6:55 PM Care Teams Fermentation Engineer Relationship Specialty Start Date End Date Kymberly Arauz NP [address] [place] [address] PCP - General Nurse Practitioner 07/27/23
--- OUTSIDE RECORDS SUMMARY | 2024-05-17 14:56 | XMS_ITS | Encounter Summary ---
Author Organization [facility] Address [address] [place] [address] Phone Care Team Providers Care Nuclear Instructor Name Role Phone Kymberly Arazu NP Primary Care Provider [phone] Ayad Lambert MD Primary Care Provider [phone] Kymberly Arauz NP Primary Care Provider Encounter Details Date Type Department Care Team (Latest Contact Info) Description 12/19/2021 Orders Only [facility] Annabel Gonzáles, HERBER[place] [address] [facility] [address] [place] [address] Social History Tobacco Use Types Packs/Day Years Used Date Smoking Tobacco: Former Cigarettes 1 28 0 05/06/1971 - 05/06/1999 Smokeless Tobacco: Never Alcohol Use Standard Drinks/Week Comments Defer 0 (1 standard drink = 0.6 oz pur e alcohol) Sex and Gender Information Value Date Recorded Sex Assigned at Not on file Legal Sex Male 2:38 AM SENIOR UX DEVELOPER Gender Identity Not on file Sexual Orientation Not on file documented as of this encounter Plan of Treatment Not on file documented as of this encounter Procedures Procedure Name Priority Date/Time Associated Diagnosis Comments SCAN - LABS 12/19/2021 documented in this encounter Results * SCAN - LABS (12/19/2021) us Annabel Gonzáles RN Final Result documented in this encounter Visit Diagnoses Not on filedocumented in this encounter Care Teams Nuclear Instructor Relationship Specialty Start Date End Date Kymberly Arauz NP PCP - General 01/09/17 07/06/22 Ayad Lambert MD [address] [facility] [place] [address] PCP - General Family Medicine 07/07/22 07/26/23 Kymberly Arauz NP [address] [place] [address] PCP - General Nurse Practitioner 07/27/23 documented as of this encounter
--- OUTSIDE RECORDS SUMMARY | 2024-05-17 14:56 | XMS_ITS | CONTINUITY OF CARE DOCUMENT ---
Author Name heri wayneaddison Address Unknown Organization [facility] Address [address] [place] [address] Phone [phone] Care Team Providers Care Cash Accounting Clerk Name Role Phone Sudeep Guzman MD Unavailable ELISHA LEAHY MD Unavailable ELISHA LEAHY MD Unavailable PROBLEMS Condition Status Date Provider Notes Family history of other cardiovascular diseases active An[facility] Fatigue active Ana Sandeep Chest pain active An[facility] VITAL SIGNS Date Observation Value Provider blood pressure, diastolic 80 mm[Hg] aHrdeep Valdes RN blood pressure, systolic 122 mm[Hg] Young Valdes RN SOCIAL HISTORY Date Observation Value Provider smoking status quit Young Valdes RN INSURANCE PROVIDERS Payer name Policy type / Coverage type [place] red democrat ID [facility] [id number] 1 HISTORY OF PROCEDURES Procedure Date Procedure Name Provider Procedure Notes S tatus Stress EKG Mayo Dumont MD completed Cardiolite, 2 units Berto Nunes MD completed SPECT Images Juliana Milner MD complet ed
--- OUTSIDE RECORDS SUMMARY | 2024-05-17 14:56 | XMS_ITS | Encounter Summary ---
Author Organization [facility] Address [address] [place] [address] Phone Care Team Providers Care Crnp Name Role Phone Kymberly Arauz NP Primary Care Provider [phone] Ayad Lambert MD Primary Care Provider [phone] Kymberly Arauz NP Primary Care Provider [phone] Encounter Details Date Type Department Care Team (Late st Contact Info) Description 12/09/2017 Telephone [facility] Cardiology [address] [facility] Advanced Medicine 8th [place] [address] [place] [address] Jeferson Macias MD [address] [facility] [address] [place], [place] [id number] Social History Tobacco Use Types Packs/Day Years Used Date Smoking Tobacco: Former Smokeless Tobacco: Never Sex and Gender Information Value Date Recorded Sex Assigned at Not on file Legal Sex Male 2:38 AM CREDIT SUPPORT SPECIALIST Gender Identity Not on file Sexual Orientation Not on file documented as of this encounter Plan of Treatment Not on file documented as of this encounter Visit Diagnoses Not on filedocumented in this encounter Care Teams Crnp Relationship Specialty Start Date End Date Kymberly Arauz NP PCP - General 01/09/17 07/06/22 Ayad Lambert MD [address] [place] [address] [place] [address] PCP - General Family Medicine 07/07/22 07/26/23 Kymberly Arauz NP [address] [place] [address] PCP - General Nurse Practitioner 07/27/23 documented as of this encounter
--- OUTSIDE RECORDS SUMMARY | 2024-05-17 14:56 | XMS_ITS | Referral Summary ---
Author Organization [facility] Address [address] [facility] [place] [address] Care Team Providers Care Counseling Services Manager Name Role Phone Nay Verduzco MD Primary Care Provider Source Comments [facility],non-[facility] Affiliates and Associated Physician Practices is amultiple site organization consisting of ambulatory clinics and hospital sitesin [place], [place], [place] and [place]. This disclosure is being madepursuant to the Care Everywhere program and may not contain all information available regarding this patient. Last updated 17.[facility] Social History Tobacco Use Types Packs/Day Years [...] Mass Index 32.71 08/21/2015 9:41 PM CDT Plan of Treatment Not on file Care Teams Counseling Services Manager Relationship Specialty Start Date End Date Nay Verduzco MD [address] [place] [phone] PCP - General 07/21/18
--- OUTSIDE RECORDS SUMMARY | 2024-05-17 14:56 | XMS_ITS | Clinical Summary ---
Author Organization [facility] Address [address] [facility] [place] [address] Care Team Providers Care Biology Specialist Name Role Phone Nay Verduzco MD Primary Care Provider Source Comments [facility],non-[facility] Affiliates and Associated Physician Practices is amultiple site organization consisting of ambulatory clinics and hospital sitesin [place], [place], [place] and [place]. This disclosure is being madepursuant to the Care Everywhere program and may not contain all information available regarding this patient. Last updated 17.[facility] Social History Tobacco Use Types Packs/Day Years [...] 08/21/2015 9:41 PM CDT Plan of Treatment Health Maintenance Due Date Last Done Comments COLOGUARD (AGES 45-75) - COL ON CA SCREENING 1955 COLON MONITORING 1955 COLONOSCOPY - COLON CA SCREENING 1957 CT COLONOGRAPHY - COLON CA SCREENING 1955 Colorectal Cancer Screening 1955 FIT - COLON CA SCREENING 1955 FLEX SIG - COLON CA SCREENING 1955 LIPID TESTING 1955 HEPATITIS C SCREENING 12/10/1975 DTAP/TDAP/TD VACCINES (1 - Tdap) 1976 PNEUMOCOCCAL VACCINE 50+ (1 of 1 - PCV) 12/15/2007 ZOSTER VACCINE (1 of 2) 12/15/2007 COVID-19 VACCINE (1 - 2023-2 5 season) 2023 INFLUENZA VACCINE (#1) 2023 DEPRESSION SCREENING 03/09/2024 MEDICARE AWV CALENDAR YEAR 2024 Respiratory Syncytial Virus (RSV) Vaccine Pt: or over 60 yrs (1 - 1-dose 75+ series) 2032 HEPATITIS B VACCINE Aged Out No longe r eligible based on patient's age to complete this topic HIB VACCINE Aged Out No longer eligi ble based on patient's age to complete this topic HPV VACCINE Aged Out No longer eligi ble based on patient's age to complete this topic MENINGOCOCCAL (Group B) VACCINE Aged Out No longer eligible based on patient's age to complete this topic MENINGOCOCCAL VACCINE Aged Out No carlos ras eligible based on patient's age to complete this topic Care Teams Biology Specialist Relationship Specialty Start Date End Date Nay Verduzco MD [address] [place] [phone] PCP - General 07/21/18
== END 2024-05-17 13:25 | disposition home or self-care (01) ==
PROVIDERS: PCP Nurse Practitioner Adult Health; Visit Provider Plastic Surgery
DX: M79.641 Pain in right hand (principal)
CPT/HCPCS: 73130

== ENCOUNTER 2024-06-16 15:06 | Inpatient (IN) | payer MEDICARE, SELFPAY ==
--- NOTE | ~2024-06-16 | CT_ITS ---
CT facial bones w con Ordering provider: Marvin Bennett MD History: . Fevers/facial swelling . Comparison: None. Technique: Thin slice axial CT of the facial bones was performed without contrast. Coronal and sagit chely reformatted images were also obtained. . Automated exposure control and iterative reconstruction technique were employed. The dose-length product was 425.28 mGy-cm. 100 mL Omnipaque 350 was given I V. FINDINGS: PARANASAL SINUSES: Bilateral maxillary sinusitis. BONES: No facial fracture including no nasal bone fracture. ORBITS AND SUPERFICIAL SOFT TISSUES: The optic globes and orbits are normal. The superficial soft tis sues are normal. VISUALIZED MASTOIDS: Well aerated. LIMITED VISUALIZED BRAIN PARENCHYMA: Normal. IMPRESSION: No facial fracture. Bilateral maxillary sinusitis Reviewed, dictated and finalized at location A.
[2024-06-16 15:17] VITALS: BP 149/75; PULSE 113; RESP 16; TEMP 37.1; O2SAT 98
--- OUTSIDE RECORDS SUMMARY | 2024-06-16 15:29 | XMS_ITS | Clinical Summary ---
Author Organization [facility] Address [address] [place] [address] Phone Care Team Providers Care Keno Writer/Runner Name Role Phone Kymberly Arauz BETTY Primary Care Provider [phone] Allergies Active Allergy Reactions Criticality Noted Date [...] on file Legal Sex Male 9:39 AM OCCUPATIONAL THERAPIST ASSISTANTS Gender Identity Not on file Sexual Orientation Not on file Last Filed Vital Signs Vital Sign Reading Time Taken Comments Blood Pressure 150/92 03/23/2020 9:06 AM OCCUPATIONAL THERAPIST ASSISTANTS Pulse 58 03/23/2020 9:06 AM OCCUPATIONAL THERAPIST ASSISTANTS Temperature 36.6 C (97.9 F) 03/23/2020 9:06 AM OCCUPATIONAL THERAPIST ASSISTANTS Respiratory Rate - - Oxygen Saturation - - Inhaled Oxygen Concentration - - Weight 111.1 kg (245 lb) 03/23/2020 9:06 AM OCCUPATIONAL THERAPIST ASSISTANTS Height 177.8 cm (5' 10 ) 03/23/2020 9:06 AM OCCUPATIONAL THERAPIST ASSISTANTS Body Mass Index 35.15 03/23/2020 9:06 AM OCCUPATIONAL THERAPIST ASSISTANTS Plan of Treatment Health Maintenance Due Date [...] BCBS BLUE ACCESS/TRUE BLUE PPO Care Teams Keno Writer/Runner Relationship Specialty Start Date End Date Kymberly Arauz ANP [address] [address] PCP - General Nurse Practitioner Adult Health 03/23/20
--- OUTSIDE RECORDS SUMMARY | 2024-06-16 15:29 | XMS_ITS | CONTINUITY OF CARE DOCUMENT ---
Author Name heri wayneaddison Address Unknown Organization [facility] Address [address] [place] [address] Phone [phone] Care Team Providers Care Transformer Molder Name Role Phone Sudeep Guzman MD Unavailable ELISHA LEAHY MD Unavailable ELISHA LEAHY MD Unavailable PROBLEMS Condition Status Date Provider Notes Family history of other cardiovascular diseases active An[facility] Fatigue active Ana Sandeep Chest pain active An[facility] VITAL SIGNS Date Observation Value Provider blood pressure, diastolic 80 mm[Hg] Hardeep Valdes RN blood pressure, systolic 122 mm[Hg] Young Valdes RN SOCIAL HISTORY Date Observation Value Provider smoking status quit Young Valdes RN INSURANCE PROVIDERS Payer name Policy type / Coverage type [place] red democrat ID [facility] [id number] 1 HISTORY OF PROCEDURES Procedure Date Procedure Name Provider Procedure Notes S tatus Stress EKG Mayo Dumont MD completed Cardiolite, 2 units Berto Nunes MD completed SPECT Images Juliana Milner MD complet ed
--- OUTSIDE RECORDS SUMMARY | 2024-06-16 15:29 | XMS_ITS | Encounter Summary ---
Author Organization [facility] Address [address] [place] [address] Phone Care Team Providers Care Lead Software Engineer Name Role Phone Kymberly Arauz NP Primary Care Provider [phone] Ayad Lambert MD Primary Care Provider [phone] Kymberly Arauz NP Primary Care Provider [phone] Encounter Details Date Type Department Care Team (Latest Contact Info) Description 05/10/2018 Orders Only [facility] Scanning, Provider Social History Tobacco Use Types Packs/Day Years Used Date Smoking Tobacco: Former Cigarettes 1 28 0 05/06/1971 - 05/06/1999 Smokeless Tobacco: Never Sex and Gender Information Value Date Recorded Sex Assigned at Not on file Legal Sex Male 2:38 AM MUNITIONS HANDLER Gender Identity Not on file Sexual Orientation [...] on filedocumented in this encounter Care Teams Lead Software Engineer Relationship Specialty Start Date End Date Kymberly Arauz NP PCP - General 01/09/17 07/06/22 Ayad Lambert MD [address] [facility] [place] [address] PCP - General Family Medicine 07/07/22 07/26/23 Kymberly Arauz NP [address] [place] [address] PCP - General Nurse Practitioner 07/27/23 documented as of this encounter
--- OUTSIDE RECORDS SUMMARY | 2024-06-16 15:29 | XMS_ITS | Encounter Summary ---
Author Organization [facility] Address [address] [place] [address] Care Team Providers Care Recruit Instructor Name Role Phone Nay Verduzco MD Primary Care Provider [phone] Encounter Details Date Type Department Care Team (Late st Contact Info) Description 10/29/2023 Lab Requisition [facility] - Pathology Lab [address] [place] [address] Christos Agee MD [address] [facility] [address] [place] [id number] Unspecified abdominal pain; Essential (primary) hypertension [...] AM CDT) Case Report Flow Cytometry Case: [id number] Authorizing Provider: Christos Agee Collected: 10/29/2023 11:58 AM MD Xu Ordering Location: [facility] - Received: 10/29/2023 04:03 PM Pathology Lab Pathologist: Annabel Kerr MD Specimen: Abdomen, Lymphnode 10/29/2023 5:01 PM [facility] Final Diagnosis Mesenteric mass, flow cytometric immunophenotypic analysis: - Insufficient hematopoietic cells for analysis - See interpretation 10/29/2023 5:01 PM [facility] Flow Cytometry Interpretation Preliminary characterization of the mesenteric mass specimen demonstrates too few hematopoietic cells for flow cytometric analysis. A cytospin prepared from the flow cytometry specimen is reviewed for vice president quality assurance purposes. Scattered erythrocytes and debris are seen. Flow cytometry is not performed. 10/29/2023 5:01 PM [facility] Flow Cytometry Results Too few hematopoietic cells for flow cytometric analysis. 10/29/2023 5:01 PM [facility] Reason for test Unspecified abdominal pain Essential (primary) hypertension 401.9 10/29/2023 5:01 PM [facility] Client Specimen ID # [id number] 10/29/2023 5:01 PM [facility] Pathologist Location at [facility] 10/29/2023 5:01 PM [facility] Disclaimer Test performed at [facility], [address] [place] [address], [address]. *The established laboratory minimum viability is 70%. [...] high complexity clinical testing. 10/29/2023 5:01 PM [facility] Embedded Images 5:01 PM [facility] Pathology/Cytolo gy ABDOMEN AND PELVIS / Unknown 10/29/2023 11:58 AM CDT 10/29/2023 4:03 PM CDT Christos Agee MD LAB - PATHO LOGY/CYTOLOGY ORDERABLES [facility] [address] [facility] [address] [phone] documented in this encounter Visit Diagnoses Diagnosis Unspecified abdominal pain Essential (primary) hypertension Unspecified essential hypertension documented in this encounter Care Teams Recruit Instructor Relationship Specialty Start Date End Date Nay Verduzco MD [address] [place] [phone] PCP - General 07/21/18 documented as of this encounter
--- OUTSIDE RECORDS SUMMARY | 2024-06-16 15:29 | XMS_ITS | Encounter Summary ---
Author Organization [facility] Address [address] [place] [address] Phone Care Team Providers Care Bird Cage Assembler Name Role Phone BernarddreaKymberly NP Primary Care Provider [phone] Encounter Details Date Type Department Care Team (Late st Contact Info) Description 03/16/2024 Telephone [facility] Cardiology [address] [facility] 8th [place] [address] [place] [address] Jeferson Macias MD [address] 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
--- OUTSIDE RECORDS SUMMARY | 2024-06-16 15:29 | XMS_ITS | Encounter Summary ---
Author Organization [facility] Address [address] [place] [address] Phone Care Team Providers Care Energy Operations Vice President Name Role Phone Kymberly Arauz NP Primary Care Provider Ayad Lambert MD Primary Care Provider [phone] Kymberly Arauz NP Primary Care Provider [phone] Encounter Details Date Type Department Care Team (Late st Contact Info) Description 12/09/2017 Telephone 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 Gender Identity Not on file Sexual Orientation Not on file documented as of this encounter Plan of Treatment Not on file documented as of this encounter Visit Diagnoses Not on filedocumented in this encounter Care Teams Energy Operations Vice President Relationship Specialty Start Date End Date Kymberyl Arauz NP PCP - General 01/09/17 07/06/22 Ayad Lambert MD [address] [place] [address] [place] [address] PCP - General Family Medicine 07/07/22 07/26/23 Kymberly Arauz NP [address] [place] [address] PCP - General Nurse Practitioner 07/27/23 documented as of this encounter
--- OUTSIDE RECORDS SUMMARY | 2024-06-16 15:29 | XMS_ITS | Clinical Summary ---
Author Organization [facility] Address [address] [place] [address] Care Team Providers Care Wedding Designer Name Role Phone Nay Verduzco MD Primary Care Provider [phone] Source Comments [facility],non-[facility] Affiliates and Associated Physician Practices is amultiple site organization consisting of ambulatory clinics and hospital sitesin [place], [place], [place] and [place]. This disclosure is being madepursuant to the Care Everywhere program and may not contain all information available regarding this patient. Last updated 17.[facility] Social History Tobacco Use Types Packs/Day Years [...] VACCINE (1 - 2023-2 5 season) 2023 DEPRESSION SCREENING 03/09/2024 MEDICARE AWV CALENDAR YEAR 2024 INFLUENZA VACCINE (Season Ended) 2024 Respiratory Syncytial Virus (RSV) Vaccine Pt: [...] to complete this topic MENINGOCOCCAL (Group B) VACC INE SHARED DECISION-MAKING Aged Out No longer eligibl e based on patient's age to complete this topic MENINGOCOCCAL GROUPS A/C/Y/W VACCINE Aged Out No longer eligible b ased on patient's age to complete this topic Care Teams Wedding Designer Relationship Specialty Start Date End Date Nay Verduzco MD [address] [place] [phone] PCP - General 07/21/18
--- OUTSIDE RECORDS SUMMARY | 2024-06-16 15:29 | XMS_ITS | Data Portability ---
Author Organization [place] [facility], Main Office Address [address] [place] [address] Care Team Providers Care Forensic Sergeant Name Role Phone AYAD LAMBERT Primary Care Provider Assessment Encounter Date Assessment Date Assessment LastModified by Organization Details LastModified Time 05/27/2022 05/27/2022 66 yo M with - WELL ADULT VISIT - CHRONIC LOW BACK PAIN - HTN - CAD - HLD - VIT D DEFICIENCY - ED - OBESITY I - H/O LUMBAR SURGERY - EX-SMOKER (08/1999) D/w pt in detail about his conditions and further plan of care. Will do routine labs, x-ray. Pt declined for cxr/LDCT chest. Advised pt to verify with his cardio about Sildenafil use. Meds as directed. Heat pack as directed prn. Diet and exercise explained in detail. BP diary education given and call us if any concerns. Cont f/u with Cardio at [place] as per schedule. Cont f/u with GI as per schedule. HM: Colonoscopy - 2018, polyp +. Cont f/u with GI as per schedule. US AAA - At 67 yrs. Flu - Pt declined. Tdap - 2018. Pneumo - Pt declined. Shingrix - At pharmacy/HD. F/u in 2 weeks. Annual labs in 05/30. [email or web address] Not available 05/27/2022 17:46:04 07/02/2022 07/02/2022 66 yo M with - HTG, mild - DDD L-SPINE - CHRONIC LOW BACK PAIN - HTN - CAD - HLD - VIT D DEFICIENCY - ED - OBESITY I - H/O LUMBAR SURGERY - EX-SMOKER (08/1999) X-ray LS spine: 06/25/22. Annual labs: 05/30/22. D/w pt in detail about his conditions, recent labs & imagines and further plan of care. Explained about different options for him. Pt declined for PT. Will refer pt to Spine surgeon. Advised pt to verify with his cardio about Sildenafil use. Meds as directed. Cont heat pack as directed prn. Diet and exercise explained in detail. BP diary education given and call us if any concerns. Cont f/u with Cardio at [place] as per schedule. Cont f/u with GI as per schedule. HM: Colonoscopy - 2017, polyp +. Cont f/u with GI as per schedule. US AAA - At 67 yrs. Flu - Pt declined. Tdap - 2018. Pneumo - Pt declined. Shingrix - At pharmacy/HD. F/u in 3-6 months. Lipids before next visit. Annual labs in 05/30. [email or web address] Not available 07/02/2022 17:12:29 09/03/2022 09/03/2022 D/w pt about his findings and further plan of care. Will send urine for C&S. Meds as directed. Very good liquid and cranberry juice intake explained. OTC pain meds as directed prn with food. Educated about alarming symptoms to monitor at home and call us back or get checked in ED. F/u as directed. [email or web address] Not available 09/03/2022 17:18:35 01/01/2023 01/01/2023 67 yo M with - HTG, mild - DDD L-SPINE - CHRONIC LOW BACK PAIN - HTN - CAD - HLD - VIT D DEFICIENCY - ED - OBESITY I - H/O LUMBAR SURGERY - EX-SMOKER (08/1999) X-ray LS spine: 06/25/22. Annual labs: 05/30/22. D/w pt in detail about his conditions, recent labs & imagines and further plan of care. Explained about different options for him. Pt declined for PT. Advised pt to verify with his cardio about Sildenafil use. Meds as directed. Cont heat pack as directed prn. Diet and exercise explained in detail. BP diary education given and call us if any concerns. Cont f/u with Spine surgeon at [facility] as per schedule. Cont f/u with Cardio at [place] as per schedule. Cont f/u with GI as per schedule. HM: Colonoscopy - 2017, polyp +. Cont f/u with GI as per schedule. US AAA - Ordered. Tdap - 2018. Flu - Pt declined. Pneumo - Pt declined. Shingrix - At pharmacy/HD. F/u in 5 months. Annual labs in 05/30. [email or web address] Not available 01/01/2023 17:23:55 Plan of Treatment Reminders Order Date Submit Date Provider Last Modified By Organization Details Last Modified Time Details Appointments None recorded. Lab urinalysis, dipstick 2022 023 [facility], [address] [place] [address], [id number], 17:30:43 culture, urine 2022 023 [employer] [facility], [address], [place], [address], 07:54:05 lipid panel, serum 2022 023 [email or web address] [employer] [facility], [address], [place], [address], 17:40:28 vitamin B12 + folate, serum or blood 2022 023 [employer] [facility], [address], [place], [address], 3 23:23:01 magnesium, serum or plasma 2022 023 [employer] [facility], [address], [place], [address], 3 23:22:56 HbA1c (hemoglobin A1c), blood 2022 023 [employer] [facility], [address], [place], [address], 3 23:23:03 vitamin D, 25-hydroxy, total, serum 2022 023 [employer] [facility], [address], [place], [address], 3 23:23:02 CMP, serum or plasma 2022 023 [employer] [facility], [address], [place], [address], 3 23:22:57 CBC w/ auto diff 2022 023 [employer] [facility], [address], [place], [address], 3 23:22:58 lipid panel, blood 2022 023 [employer] [facility], [address], [place], [address], 3 23:22:55 TSH, serum, reflex free T4 2022 023 [email or web address] [employer] [facility], [address], [place], [address], 3 08:13:17 PSA, serum or plasma 2022 023 [employer] [facility], [address], [place], [address], 3 23:23:00 urinalysis complete, reflex culture 2022 023 [employer] [facility], [address], [place], [address], 3 23:22:58 Referral spine center referral - Please call the pt to make an appt. Thank you 2022 023 [email or web address] [facility], [address] [facility], [place], [address], 15:36:54 Procedures None recorded. Surgeries None recorded. Imaging US, screening for abdominal aortic aneurysm - *Please call pt to schedule* [email or web address] [place] [address], [address], [place], [address], 3 09:12:11 XR, lumbosacral spine, 4 or more view 2022 023 [facility] ([facility]), [address], [place], [address], 3 14:49:02 Medication Orders cyclobenzap rine 10 mg tablet 2022 023 [facility], [facility], [place], [address], 3 17:14:14 sildenafil 100 mg tablet 2022 023 [id number], [address] , [place], [address], 3 17:14:13 ciprofloxac in 500 mg tablet 2022 023 [id number] [address] [facility], [place], [address], 3 17:13:34 phenazopyri dine 200 mg tablet 2022 023 [id number], [address], [place], [address], 3 17:13:40 cyclobenzap rine 10 mg tablet 2022 023 [facility], [facility], [place], [address], 3 17:09:51 sildenafil 100 mg tablet 2022 023 [id number], [address] , [place], [address], 3 09:14:52 atorvastati n 40 mg tablet 2022 023 [facility], [facility], [place], [address], 17:16:09 sildenafil 100 mg tablet 2022 023 [facility] #[id number], [address], [place], [address], 09:35:40 Patient TargetsNo targets recorded. Patient InstructionsNo instructions recorded. Reason for Referral Spine Center Referral for Ch ronic low back pain DDD L-spine, Lumbar spondylosis Please call the pt to make an appt. Thank you Referring Physician: Ayad Lambert, Family Medicine, Encounter Date: 07/02/2022 Results Created Date Observation Date Name Description Value Unit Range Abnormal Flag Note LastModifiedBy Organization Detail LastModifiedTime 12/20/1912/20/2021 VITAM IN D,25- OH,TO IVONNE,I A vitamin D,25-oh,tota l,ia 27 NG/mL 30-100 low Vitam in D Statu s 25-OH Vitam in D: Defic iency : <20 ng/mL Insuf ficie ncy: 20 - 29 ng/mL Optim al: > or = 30 ng/mL For 25-OH Vitam in D testi ng on patie nts on D2-gomes pplem entat ion and patie nts for whom quant itati on of D2 and D3 fract ions is requi red, the [facility] Assur eD(TM ) 25-OH VIT D, (D2,D 3), LC/MS /MS is recom cipriano d: order code 69452 (gui ents >2yrs ). See Note 1 Note 1 For addit ional infor lavell pham refer to http: //brandon Lemaia gnost ics.c om/fa q/FAQ 199 (This link is being provi ded for infor cherelle mccoy/ krystyna markham purpo ses only. ) Not Available [facility] [address] [place], [address], 12/20/2021 06:14:29 12/20/19 22 12/20/2021 PSA, TOTAL PSA, total 0.81 NG/mL < or = 4.00 normal The total PSA value from this assay syste m is stand ardiz ed again st the WHO stand yolanda. The test resul t will be appro ximat elisa 20% lower when shaq red to the equim olar- stand ardiz ed total PSA (Jones man Coult er). Shaq rison of seria l PSA resul ts shoul d be inter prete d with this fact in mind. This test was perfo rmed using the [employer] chemi lumin escen t metho d. Value s obtai alice from diffe rent assay metho ds canno t be used inter hester eably . PSA level s, regar dless of value , shoul d not be inter prete d as absol anvik evide nce of the prese nce or absen ce of disea se. Not Available [place] [address] [place], [address], 12/20/2021 06:14:29 12/20/1912/20/2021 HEPAT IC FUNCT ION PANEL protein, total 6.7 g/dL 6.1-8. 1 normal Not Available [facility] [place] [address] [place], [address], 12/20/2021 06:14:27 12/20/1912/20/2021 HEPAT IC FUNCT ION PANEL albumin 4.5 g/dL 3.6-5. 1 normal Not Available [facility] [place] [address] [place], [address], 12/20/2021 06:14:27 12/20/1912/20/2021 HEPAT IC FUNCT ION PANEL globulin 2.2 g/dL_ (calc ) 1.9-3. 7 normal Not Available [facility] [place] [address] [place], [address], 12/20/2021 06:14:27 12/20/19 22 12/20/2021 HEPAT IC FUNCT ION PANEL bilirubin, indirect 0.8 mg/dL _(rod c) 0.2-1. 2 normal Not Available [address], [address], 12/20/2021 06:14:27 12/20/19 22 12/20/2021 HEPAT IC FUNCT ION PANEL albumin/glob ulin ratio 2.0 (calc ) 1.0-2. 5 normal Not Available [address] [address] [place], [address], 12/20/2021 06:14:27 12/20/1912/20/2021 HEPAT IC FUNCT ION PANEL bilirubin, total 0.9 mg/dL 0.2-1. 2 normal Not Available [address], [address], 12/20/2021 06:14:27 12/20/19 22 12/20/2021 HEPAT IC FUNCT ION PANEL bilirubin, direct 0.1 mg/dL < or = 0.2 normal Not Available [address], [address], 12/20/2021 06:14:27 12/20/19 22 12/20/2021 HEPAT IC FUNCT ION PANEL alkaline phosphatase 48 U/L 35-144 normal Not Available [place] [address] [place], [address], 12/20/2021 06:14:27 12/20/19 22 12/20/2021 HEPAT IC FUNCT ION PANEL AST 16 U/L 10-35 normal Not Available [address], [address], 12/20/2021 06:14:27 12/20/19 22 12/20/2021 HEPAT IC FUNCT ION PANEL ALT 18 U/L 9-46 normal Not Available [address] [place], [address], 12/20/2021 06:14:27 12/20/1912/20/2021 BASIC METAB OLIC PANEL glucose 95 mg/dL 65-99 normal Fasti ng refer ence inter emily Not Available [address], [address], 12/20/2021 06:14:27 12/20/1912/20/2021 BASIC METAB OLIC PANEL urea nitrogen (BUN) 12 mg/dL 7-25 normal Not Available [address], [address], 12/20/2021 06:14:27 12/20/1912/20/2021 BASIC METAB OLIC PANEL creatinine 0.97 mg/dL 0.70-1 .35 normal Not Available [address], [address], 12/20/2021 06:14:27 12/20/1912/20/2021 BASIC METAB OLIC PANEL eGFR 87 mL/mi n/1.7 3m2 > or = 60 normal The eGFR is based on the CKD-E PI 2020 equat ion. To calcu late the new eGFR from a previ ous Creat inine or Cysta tin C resul t, go to https ://rony coyle.eve alves/giorgio roque s/ kdoqi /gfr% 5Fcal culat or Not Available [address], [address], 12/20/2021 06:14:27 12/20/1912/20/2021 BASIC METAB OLIC PANEL BUN/creatini ne ratio not applic able (calc ) 6-22 Not Available [address], [address], 12/20/2021 06:14:27 12/20/19 22 12/20/2021 BASIC METAB OLIC PANEL sodium 141 mmol/ L 135-14 6 normal Not Available [address] [address] [place], [address], 12/20/2021 06:14:27 12/20/1912/20/2021 BASIC METAB OLIC PANEL potassium 4.2 mmol/ L 3.5-5. 3 normal Not Available [address] [address] [place], [address], 12/20/2021 06:14:27 12/20/1912/20/2021 BASIC METAB OLIC PANEL chloride 105 mmol/ L 98-110 normal Not Available [address] [address] [place], [address], 12/20/2021 06:14:27 12/20/1912/20/2021 BASIC METAB OLIC PANEL carbon dioxide 30 mmol/ L 20-32 normal Not Available [address] [address] [place], [address], 12/20/2021 06:14:27 12/20/1912/20/2021 BASIC METAB OLIC PANEL calcium 8.7 mg/dL 8.6-10 .3 normal Not Available [address] [address] [place], [address], 12/20/2021 06:14:27 12/20/1912/20/2021 LIPID PANEL , STAND YOLANDA LDL-choleste rol 141 mg/dL _(rod c) high Refer ence range : <100 Sherie able range <100 mg/dL for prima ry preve ntion ; <70 mg/dL for patie nts with CHD or diabe tic patie nts with > or = 2 CHD risk facto rs. LDL-C is now calcu lated using the Britney n-Hop kins calcu jez n, which is a valid ated novel metho d provi reggie iqbal r accur acy than the Fried thee equat ion in the estim ation of LDL-C . Britney steven SS et al. QUINN. 2013; 310(1 5): 2061- 2068 (http ://ed ucati on.Toshia agarwal Doculogys. com/f aq/FA Q164) Not Available [address] [address] [place], [address], 12/20/2021 06:14:26 12/20/1912/20/2021 LIPID PANEL , STAND YOLANDA cholesterol, total 219 mg/dL <200 high Not Available [address], [address], 12/20/2021 06:14:26 12/20/1912/20/2021 LIPID PANEL , STAND YOLANDA HDL cholesterol 42 mg/dL > or = 40 normal Not Available [address], [address], 12/20/2021 06:14:26 12/20/1912/20/2021 LIPID PANEL , STAND YOLANDA triglyceride s 223 mg/dL <150 high If a non-f astin g speci men was colle cted, consi mami repea t trigl yceri de testi ng on a fasti ng speci men if clini adam indic ated. Breezy antoine et al. J. of Clin. Lipid ol. 2015; 9:129 -169. Not Available [address], [address], 12/20/2021 06:14:26 12/20/1912/20/2021 LIPID PANEL , STAND YOLANDA chol/HDLC ratio 5.2 (calc ) <5.0 high Not Available [address], [address], 12/20/2021 06:14:26 12/20/1912/20/2021 LIPID PANEL , STAND YOLANDA non HDL cholesterol 177 mg/dL _(rod c) <130 high For patie nts with diabe ceasar plus 1 major ASCVD risk facto r, treat ing to a non-H DL-C goal of <100 mg/dL (LDL- C of <70 mg/dL ) is consi dered a thera peuti c optio n. Not Available [employer] [facility] [address] [place], [address], 12/20/2021 06:14:26 05/31/19 23 06/03/2022 CARDI O IQ(R) LIPID PANEL cholesterol, total 137 mg/dL <200 Not Available [facility] [address] [place] [address] [place], [address], 06/03/2022 23:22:55 05/31/19 23 06/03/2022 CARDI O IQ(R) LIPID PANEL HDL cholesterol 44 mg/dL >39 Not Available [facility] [employer] [place] [address] [place], [address], 06/03/2022 23:22:55 05/31/19 23 06/03/2022 CARDI O IQ(R) LIPID PANEL triglyceride s 154 mg/dL <150 high Not Available [facility] [address] [address] [address], [place], [address], 06/03/2022 23:22:55 05/31/19 23 06/03/2022 CARDI O IQ(R) LIPID PANEL LDL-choleste rol 69 mg/dL _(rod c) <100 Sherie able range <100 mg/dL for prima ry preve ntion ; <70 mg/dL for patie nts with CHD or diabe tic patie nts with >= 2 CHD risk facto rs. LDL-C is now calcu lated using the [facility] calcu latio n, which is a valid ated novel metho d provi ding farida r accur acy than the Fried thee equat ion in the estim ation of LDL-C . Britney CAZARES et al. QUINN. 2013; 310(1 9): 2061- 2068 (http ://ed ucati on.Qu Aakash Reunify. com/f aq/FA Q164) LDL-C is now calcu lated using the [facility] calcu latio n, which is a valid ated novel metho d provi ding farida r accur acy than the Fried thee equat ion in the estim ation of LDL-C . Britney n SS et al. QUINN. 2013; 310(5 1): 2061- 2068 (http ://ed ladariusati on.Toshia Finn dipeshasif BBOXX. com/f aq/FA Q164) Not Available [address] [address] [place], [address], 06/03/2022 23:22:55 05/31/19 23 06/03/2022 CARDI O IQ(R) LIPID PANEL chol/HDLC ratio 3.1 calc <3.6 Not Available [address] , [place], [address], 06/03/2022 23:22:55 05/31/19 23 06/03/2022 CARDI O IQ(R) LIPID PANEL non HDL cholesterol 93 mg/dL _(rod c) <130 For patie nts with diabe ceasar plus 1 major ASCVD risk facto r, treat ing to a non-H DL-C goal of <100 mg/dL (LDL- C of <70 mg/dL ) is consi dered a thera peuti c optio n. For patie nts with diabe ceasar plus 1 major ASCVD risk facto r, treat ing to a non-H DL-C goal of <100 mg/dL (LDL- C of <70 mg/dL ) is consi dered a thera peuti c optio n. Not Available [address] [place] [address] [facility] [place], [address], 06/03/2022 23:22:55 05/31/19 23 06/03/2022 MAGNE SIUM magnesium 2.2 mg/dL 1.5-2. 5 normal Not Available [address] [address] [facility] [place], [address], 06/03/2022 23:22:56 05/31/19 23 06/03/2022 COMPR EHENS KOFI METAB OLIC PANEL glucose 91 mg/dL 65-99 normal Fasti ng refer ence inter emily Not Available [facility] [place] [address] [place], [address], 06/03/2022 23:22:57 05/31/19 23 06/03/2022 COMPR EHENS KOFI METAB OLIC PANEL urea nitrogen (BUN) 11 mg/dL 7-25 normal Not Available [address], [address], 06/03/2022 23:22:57 05/31/19 23 06/03/2022 COMPR EHENS KOFI METAB OLIC PANEL creatinine 0.99 mg/dL 0.70-1 .35 normal Not Available [address], [address], 06/03/2022 23:22:57 05/31/19 23 06/03/2022 COMPR EHENS KOFI METAB OLIC PANEL eGFR 85 mL/mi n/1.7 3m2 > or = 60 normal The eGFR is based on the CKD-E PI 2020 equat ion. To calcu late the new eGFR from a previ ous Creat inine or Cysta tin C resul t, go to https ://rony alves/giorgio an/ kdoqi /gfr% 5Fcal culat or Not Available [address], [address], 06/03/2022 23:22:57 05/31/19 23 06/03/2022 COMPR EHENS KOFI METAB OLIC PANEL BUN/creatini ne ratio NOT APPLIC ABLE (calc ) 6-22 Not Available [address] [address] [place], [address], 06/03/2022 23:22:57 05/31/19 23 06/03/2022 COMPR EHENS KOFI METAB OLIC PANEL sodium 142 mmol/ L 135-14 6 normal Not Available [address], [address], 06/03/2022 23:22:57 05/31/19 23 06/03/2022 COMPR EHENS KOFI METAB OLIC PANEL potassium 4.6 mmol/ L 3.5-5. 3 normal Not Available [address], [address], 06/03/2022 23:22:57 05/31/19 23 06/03/2022 COMPR EHENS KOFI METAB OLIC PANEL chloride 105 mmol/ L 98-110 normal Not Available [address], [address], 06/03/2022 23:22:57 05/31/19 23 06/03/2022 COMPR EHENS KOFI METAB OLIC PANEL carbon dioxide 29 mmol/ L 20-32 normal Not Available [address], [address], 06/03/2022 23:22:57 05/31/19 23 06/03/2022 COMPR EHENS KOFI METAB OLIC PANEL calcium 8.8 mg/dL 8.6-10 .3 normal Not Available [address], [address], 06/03/2022 23:22:57 05/31/19 23 06/03/2022 COMPR EHENS KOFI METAB OLIC PANEL protein, total 6.6 g/dL 6.1-8. 1 normal Not Available [address], [address], 06/03/2022 23:22:57 05/31/19 23 06/03/2022 COMPR EHENS KOFI METAB OLIC PANEL albumin 4.4 g/dL 3.6-5. 1 normal Not Available [address], [address], 06/03/2022 23:22:57 05/31/19 23 06/03/2022 COMPR EHENS KOFI METAB OLIC PANEL globulin 2.2 g/dL_ (calc ) 1.9-3. 7 normal Not Available [address], [address], 06/03/2022 23:22:57 05/31/19 23 06/03/2022 COMPR EHENS KOFI METAB OLIC PANEL albumin/glob ulin ratio 2.0 (calc ) 1.0-2. 5 normal Not Available [address], [address], 06/03/2022 23:22:57 05/31/19 23 06/03/2022 COMPR EHENS KOFI METAB OLIC PANEL bilirubin, total 0.7 mg/dL 0.2-1. 2 normal Not Available [address], [address], 06/03/2022 23:22:57 05/31/19 23 06/03/2022 COMPR EHENS KOFI METAB OLIC PANEL alkaline phosphatase 49 U/L 35-144 normal Not Available [address], [address], 06/03/2022 23:22:57 05/31/19 23 06/03/2022 COMPR EHENS KOFI METAB OLIC PANEL AST 17 U/L 10-35 normal Not Available [address], [address], 06/03/2022 23:22:57 05/31/19 23 06/03/2022 COMPR EHENS KOFI METAB OLIC PANEL ALT 18 U/L 9-46 normal Not Available [address], [address], 06/03/2022 23:22:57 05/31/19 23 06/03/2022 CBC (INCL UDES DIFF/ PLT) white blood cell count 6.2 thous and/u L 3.8-10 .8 normal Not Available [address], [address], 06/03/2022 23:22:58 05/31/19 23 06/03/2022 CBC (INCL UDES DIFF/ PLT) red blood cell count 4.99 gary on/uL 4.20-5 .80 normal Not Available [address], [address], 06/03/2022 23:22:58 05/31/19 23 06/03/2022 CBC (INCL UDES DIFF/ PLT) hemoglobin 15.5 g/dL 13.2-1 7.1 normal Not Available [address], [address], 06/03/2022 23:22:58 05/31/19 23 06/03/2022 CBC (INCL UDES DIFF/ PLT) hematocrit 46.9 % 38.5-5 0.0 normal Not Available [address], [address], 06/03/2022 23:22:58 05/31/19 23 06/03/2022 CBC (INCL UDES DIFF/ PLT) MCV 94.0 fL 80.0-1 00.0 normal Not Available [address], [address], 06/03/2022 23:22:58 05/31/19 23 06/03/2022 CBC (INCL UDES DIFF/ PLT) MCH 31.1 pg 27.0-3 3.0 normal Not Available [address], [address], 06/03/2022 23:22:58 05/31/19 23 06/03/2022 CBC (INCL UDES DIFF/ PLT) MCHC 33.0 g/dL 32.0-3 6.0 normal Not Available [address], [address], 06/03/2022 23:22:58 05/31/19 23 06/03/2022 CBC (INCL UDES DIFF/ PLT) RDW 13.1 % 11.0-1 5.0 normal Not Available [address], [address], 06/03/2022 23:22:58 05/31/19 23 06/03/2022 CBC (INCL UDES DIFF/ PLT) platelet count 143 thous and/u L 140-40 0 normal Not Available [address], [address], 06/03/2022 23:22:58 05/31/19 23 06/03/2022 CBC (INCL UDES DIFF/ PLT) MPV 11.2 fL 7.5-12 .5 normal Not Available [address], [address], 06/03/2022 23:22:58 05/31/19 23 06/03/2022 CBC (INCL UDES DIFF/ PLT) absolute neutrophils 3980 cells /uL 1500-7 800 normal Not Available [address], [address], 06/03/2022 23:22:58 05/31/19 23 06/03/2022 CBC (INCL UDES DIFF/ PLT) absolute lymphocytes 1587 cells /uL 850-39 00 normal Not Available [address], [address], 06/03/2022 23:22:58 05/31/19 23 06/03/2022 CBC (INCL UDES DIFF/ PLT) absolute monocytes 440 cells /uL 200-95 0 normal Not Available [address], [address], 06/03/2022 23:22:58 05/31/19 23 06/03/2022 CBC (INCL UDES DIFF/ PLT) absolute eosinophils 161 cells /uL 15-500 normal Not Available [address], [address], 06/03/2022 23:22:58 05/31/19 23 06/03/2022 CBC (INCL UDES DIFF/ PLT) absolute basophils 31 cells /uL 0-200 normal Not Available [address], [address], 06/03/2022 23:22:58 05/31/19 23 06/03/2022 CBC (INCL UDES DIFF/ PLT) neutrophils 64.2 % normal Not Available [address], [address], 06/03/2022 23:22:58 05/31/19 23 06/03/2022 CBC (INCL UDES DIFF/ PLT) lymphocytes 25.6 % normal Not Available [address], [address], 06/03/2022 23:22:58 05/31/19 23 06/03/2022 CBC (INCL UDES DIFF/ PLT) monocytes 7.1 % normal Not Available [address], [address], 06/03/2022 23:22:58 05/31/19 23 06/03/2022 CBC (INCL UDES DIFF/ PLT) eosinophils 2.6 % normal Not Available [address], [address], 06/03/2022 23:22:58 05/31/19 23 06/03/2022 CBC (INCL UDES DIFF/ PLT) basophils 0.5 % normal Not Available [address], [id number], 06/03/2022 23:22:58 05/31/19 23 06/03/2022 URINA LYSIS , COMPL ETE W/REF ZEUS TO CULTU RE color YELLOW yellow normal Not Available [address], [address], 06/03/2022 23:22:58 05/31/19 23 06/03/2022 URINA LYSIS , COMPL ETE W/REF ZEUS TO CULTU RE appearance CLEAR clear normal Not Available [address], [address], 06/03/2022 23:22:58 05/31/19 23 06/03/2022 URINA LYSIS , COMPL ETE W/REF ZEUS TO CULTU RE specific gravity 1.015 1.001- 1.035 normal Not Available [address], [address], 06/03/2022 23:22:58 05/31/19 23 06/03/2022 URINA LYSIS , COMPL ETE W/REF ZEUS TO CULTU RE pH 7.0 5.0-8. 0 normal Not Available [address], [address], 06/03/2022 23:22:58 05/31/19 23 06/03/2022 URINA LYSIS , COMPL ETE W/REF ZEUS TO CULTU RE glucose NEGATI VE negati ve normal Not Available [address], [id number], 06/03/2022 23:22:58 05/31/19 23 06/03/2022 URINA LYSIS , COMPL ETE W/REF ZEUS TO CULTU RE bilirubin NEGATI VE negati ve normal Not Available [address], [address], 06/03/2022 23:22:58 05/31/19 23 06/03/2022 URINA LYSIS , COMPL ETE W/REF ZEUS TO CULTU RE ketones NEGATI VE negati ve normal Not Available [address], [address], 06/03/2022 23:22:58 05/31/19 23 06/03/2022 URINA LYSIS , COMPL ETE W/REF ZEUS TO CULTU RE occult blood NEGATI VE negati ve normal Not Available [facility] [address] [place], [address], 06/03/2022 23:22:58 05/31/19 23 06/03/2022 URINA LYSIS , COMPL ETE W/REF ZEUS TO CULTU RE protein NEGATI VE negati ve normal Not Available [address], [address], 06/03/2022 23:22:58 05/31/19 23 06/03/2022 URINA LYSIS , COMPL ETE W/REF ZEUS TO CULTU RE nitrite NEGATI VE negati ve normal Not Available [address], [address], 06/03/2022 23:22:58 05/31/19 23 06/03/2022 URINA LYSIS , COMPL ETE W/REF ZEUS TO CULTU RE leukocyte esterase NEGATI VE negati ve normal Not Available [address], [address], 06/03/2022 23:22:58 05/31/19 23 06/03/2022 URINA LYSIS , COMPL ETE W/REF ZEUS TO CULTU RE WBC NONE SEEN /hpf < or = 5 normal Not Available [address], [address], 06/03/2022 23:22:58 05/31/19 23 06/03/2022 URINA LYSIS , COMPL ETE W/REF ZEUS TO CULTU RE RBC NONE SEEN /hpf < or = 2 normal Not Available [address], [address], 06/03/2022 23:22:58 05/31/19 23 06/03/2022 URINA LYSIS , COMPL ETE W/REF ZEUS TO CULTU RE squamous epithelial cells NONE SEEN /hpf < or = 5 normal Not Available [address], [address], 06/03/2022 23:22:58 05/31/19 23 06/03/2022 URINA LYSIS , COMPL ETE W/REF ZEUS TO CULTU RE bacteria NONE SEEN /hpf none seen normal Not Available [facility] [place] [address] [place], [address], 06/03/2022 23:22:58 05/31/19 23 06/03/2022 URINA LYSIS , COMPL ETE W/REF ZEUS TO CULTU RE hyaline cast NONE SEEN /lpf none seen normal Not Available [facility] [place] [address] [address] [place], [address], 06/03/2022 23:22:58 05/31/19 23 06/03/2022 REFLE XIVE URINE CULTU RE reflexive urine culture NO CULTU RE INDIC ATED Not Available [address], [address], 06/03/2022 23:23:00 05/31/19 23 06/03/2022 PSA, TOTAL PSA, total 0.48 NG/mL < or = 4.00 normal The total PSA value from this assay syste m is stand ardiz ed again st the WHO stand yolanda. The test resul t will be appro ximat elisa 20% lower when shaq red to the equim olar- stand ardiz ed total PSA (Jones man Coult er). Shaq rison of seria l PSA resul ts shoul d be inter prete d with this fact in mind. This test was perfo rmed using the [employer] ns chemi lumin escen t metho d. Value s obtai alice from diffe rent assay metho ds canno t be used inter hester eably . PSA level s, regar dless of value , shoul d not be inter prete d as absol anvik evide nce of the prese nce or absen ce of disea se. Not Available [place] [address] [place], [address], 06/03/2022 23:23:00 05/31/19 23 06/03/2022 VITAM IN B12/F OLATE , SERUM PANEL vitamin B12 491 pg/mL 200-11 00 normal Not Available [address], [address], 06/03/2022 23:23:01 05/31/19 23 06/03/2022 VITAM IN B12/F OLATE , SERUM PANEL folate, serum 22.0 NG/mL normal Refer ence Range Low: <3.4 Borde rline : 3.4-5 .4 Tammie l: >5.4 Not Available [address], [address], 06/03/2022 23:23:01 05/31/19 23 06/03/2022 TSH W/REF ZEUS TO FT4 TSH w/reflex to FT4 0.65 mIU/L 0.40-4 .50 normal Not Available [address], [address], 06/03/2022 23:23:02 05/31/19 23 06/03/2022 VITAM IN D,25- OH,TO IVONNE,I A vitamin D,25-oh,tota l,ia 31 NG/mL 30-100 normal Vitam in D Statu s 25-OH Vitam in D: Defic iency : <20 ng/mL Insuf ficie ncy: 20 - 29 ng/mL Optim al: > or = 30 ng/mL For 25-OH Vitam in D testi ng on patie nts on D2-gomes pplem entat ion and patie nts for whom quant itati on of D2 and D3 fract ions is requi red, the [facility] eD(TM ) 25-OH VIT D, (D2,D 3), LC/MS /MS is recom cipriano d: order code 60257 (gui ents >2yrs ). See Note 1 Note 1 For addit ional infor lavell pham e refer to http: //brandon [email or web address] om/fa q/FAQ [email or web address] (This link is being provi ded for infor cherelle mccoy/ educemile juárez l purpo ses only. ) Not Available [employer] [facility] [address] [place], [address], 06/03/2022 23:23:02 05/31/19 23 06/03/2022 HEMOG LOBIN A1C hemoglobin A1C 5.3 %_of_ total _HGB <5.7 normal For the purpo se of screherbert mirandag for the prese nce of diabe ceasar: <5.7% Consi stent with the absen ce of diabe ceasar 5.7-6 .4% Consi stent with incre ased risk for diabe ceasar (pred iabet es) > or =6.5% Consi stent with diabe ceasar This assay resul t is consi stent with a decre ased risk of diabe ceasar. Curre ntly, no conse nsus exist s mrele paredes use of hemog lobin A1c for diagn osis of diabe ceasar in child pao. Accor ding to Ameri can Diabe ceasar Assoc iatio n (ADA) guide lines , hemog lobin A1c <7.0% repre sents optim al contr ol in non-p regna nt diabe tic patie nts. Diffe rent metri cs may apply to speci fic patie nt popul ation s. Stand ards of Medic al Care in Diabe ceasar(A DA). Not Available [employer] [facility] [address] [address], [place], [address], 06/03/2022 23:23:03 09/04/19 23 09/03/2022 urina lysis , dipst ick Leukocytes (reference range: negative riky/ l) Negati ve Not Available On license of [facility] [address] [place] [address], [address], 09/03/2022 17:18:02 09/04/1909/03/2022 urina lysis , dipst ick Nitrite (reference rage: negative mg/dl) negati ve Not Available On license of [facility] [address] [place], [address], 09/03/2022 17:18:02 09/04/19 23 09/03/2022 urina lysis , dipst ick Urobilinogen (reference range: 0.2-1 mg/dl) 0.2 Not Available [address], [address], 09/03/2022 17:18:02 09/04/19 23 09/03/2022 urina lysis , dipst ick Protein (reference range: negative mg/dl) Negati ve Not Available [address], [address], 09/03/2022 17:18:02 09/04/19 23 09/03/2022 urina lysis , dipst ick pH (reference range: 5-7) 5.0 Not Available [address], [address], 09/03/2022 17:18:02 09/04/19 23 09/03/2022 urina lysis , dipst ick Blood (reference range: negative Eusebio/ l) Non-He molyze d: Trace Not Available [address], [address], 09/03/2022 17:18:02 09/04/19 23 09/03/2022 urina lysis , dipst ick Specific [place] (reference range: 1.005-1.030) 1.005 Not Available [address], [address], 09/03/2022 17:18:02 09/04/19 23 09/03/2022 urina lysis , dipst ick Ketone (reference range: negative mg/dl) Negati ve Not Available [address] [place], [address], 09/03/2022 17:18:02 09/04/19 23 09/03/2022 urina lysis , dipst ick Bilirubin (reference range: negative mg/dl) Negati ve Not Available [address], [address], 09/03/2022 17:18:02 09/04/19 23 09/03/2022 urina lysis , dipst ick Glucose (reference range: negative mg/dl) Negati ve Not Available [address], [address], 09/03/2022 17:18:02 09/04/19 23 09/03/2022 urina lysis , dipst ick Appearance Clear Not Available [address], [address], 09/03/2022 17:18:02 09/04/19 23 09/03/2022 urina lysis , dipst ick Color Pale Yellow Not Available [address], [address], 09/03/2022 17:18:02 06/26/19 23 06/25/2022 XR, lumbo sacra l spine , 4 or more view No observ ation record ed. [address], [place], [address], 07/02/2022 17:01:49 02/26/20 23 02/25/2023 , melanie mirandag for abdom inal aorti c aneur ysm No observ ation record ed. [place] [id number] [facility] [address], [place], [address], 02/25/2023 14:01:47 Result Notes None recorded. Problems Name Problem SNOMED Code Status Onset Date Resolution Date Notes Provider Name and Address Organization Details Recorded Time Intermitt ent palpitati ons 506237459 Completed Not Available [facility] 3 05:59:04 Bilateral plantar fasciitis 73295303438 144385 Active 2017 Not Available [facility] 3 05:59:04 Neoplasm of bone 516349288 Active Not Available [facility] 3 05:59:05 Aneurysm of iliac artery 56024896 Completed Not Available [facility] 3 05:59:05 Hyperchol esterolem ia 21627119 Active Not Available [facility] 3 05:59:05 Chronic obstructi ve pulmonary disease 14578931 Active Not Available [facility] 3 05:59:05 Acute sinusitis 64839559 Completed Not Available [facility] 3 05:59:05 Ganglion cyst of tendon sheath 80463556 Completed Not Available [facility] 3 05:59:05 Abdominal pain 92576401 Completed Not Available [facility] 3 05:59:05 Fluid level behind tympanic membrane Completed Not Available [facility] 3 05:59:05 History of SARS-CoV- 2 [id number] 0418503 Active 2020 Not Available [facility] 3 05:59:06 Chest pain 41202493 Completed Not Available [facility] 3 05:59:06 Vitamin D deficienc y 57817960 Active Not Available [facility] 3 05:59:06 Sinusitis 11963066 Completed Not Available [facility] 3 05:59:06 Arthritis 1459458 Active Not Available [facility] 3 05:59:06 Hypertens kofi disorder 58681463 Active Not Available [facility] 3 05:59:06 Umbilical hernia 600279907 Active Not Available [facility] 3 05:59:06 History of operative procedure on lumbar spinal structure 648526101 Active 2021 Not Available [facility] 3 05:59:06 Dysuria 90555441 Completed Ayad Lambert MD [address], [place], [address] , [employer] [facility] [email or web address] 3 17:18:00 Cough 90001491 Completed Not Available [facility] 3 05:59:07 Excessive sweating 29273894 Completed Not Available [facility] 3 05:59:07 Chronic fatigue syndrome 50364328 Completed Not Available [facility] 3 05:59:07 Coronary arteriosc lerosis 20812521 Active 2018 Not Available [facility] 3 05:59:07 Upper respirato ry infection 71125279 Completed Not Available [facility] 3 05:59:07 Hyperlipi demia 65166950 Active Not Available [facility] 3 05:59:07 Dyspnea on exertion 12699391 Completed Not Available [facility] 3 05:59:08 Colitis 32848270 Active Not Available [facility] 3 05:59:08 Carotid artery stenosis 14891701 Completed Not Available [facility] 3 05:59:08 Hemorrhoi ds 22213194 Active Not Available [facility] 3 05:59:08 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 Not Available [facility] 3 05:59:08 COVID-19 564188431 Active 2019 Not Available [facility] 3 05:59:09 Fatigue 49649385 Active Not Available [facility] 3 05:59:09 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 [employer] 3 17:29:01 Degenerat ion of lumbar intervert ebral disc 31040110 Active 2022 Ayad Lambert MD [address] [facility] [facility] [address], [place], [address] , [facility] [employer] [facility] [employer] 3 17:12:41 Dysuria 10191883 Active 2022 Ayad Lambert MD [address] [facility], [facility] [address], [place], [address] , [facility] [employer] [facility] [employer] 3 17:18:00 Urinary tract infectiou s disease 50230319 Active 2022 Ayad Lambert MD [address] [facility], [place] [address], [place], [address] , [employer] [facility] [employer] 3 17:29:33 Ex-smoker 8381766 Active 2022 Ayad Lambert MD [address] [facility], [place] [address], [place], [address] , [facility] [employer] [facility] [employer] 3 17:18:08 Problem Notes None recorded. Procedures Surgical History Date Name Laterality Status Provider Name and Address Organization Details Recorded Time Cardiovascular Procedure completed Not Available [facility] 05/07/2022 05:53:55 Back Surgeries completed Not Available [facility] 05/07/2022 05:53:55 Colonoscopy completed Not Available [facility] 05/07/2022 05:53:55 Orthopedic Surgery completed Not Available [facility] 05/07/2022 05:53:55 Hemorrhoidectomy completed Not Available [facility] 05/07/2022 05:53:55 Hernia Repair completed Not Available [facility] 05/07/2022 05:53:55 Imaging Results Imaging Date Name Status LastModified by Organiz ation Details LastModified Time 06/25/2022 XR, lumbosacral spine, 4 or more view completed [facility] [address] [facility] [address], [place], [address], 07/02/2022 17:01:49 02/25/2023 US, screening for abdominal aortic aneurysm completed [email or web address] [facility] [address] [facility] [address], [place], [address], 02/25/2023 14:01:47 Procedure Notes None recorded. Medical Equipment None Reported. Allergies Allergen ID Allergen Name Allergen Category Reaction Reaction Severity Criticality Documentation Date Start Date Code Code System Note Provider Name and Address Organization Details Recorded Time 18878 Product containin g penicilli n (product) medicatio n wheezing moderate Not available 05/07/2022 [id number] SNOMED as a child breat shai probl ems. Not Available [facility] 06:05:26 Medications Name Sig Start Date Stop Date Status Note LastModified by Organization Details LastModified Time celecoxib 200 mg capsule Take by oral route for 15 days. active Not Available Not Available No t Available cyclobenz aprine 10 mg tablet TAKE 1 TABLET BY MOUTH EVERY 12 HRS NEEDED 2023 active Not Available Not Available Not Avai lable atorvasta tin 40 mg tablet Take 1 tablet every day by oral route at bedtime for 90 days. 01/01 completed Not Available Not Available Not Available gabapenti n 600 mg tablet TK 1 T PO TID. 03/01 completed Not Available Not Available Not Available sildenafi l 50 mg tablet TK 1 T PO NEEDED UTD 04/01 completed Not Available Not Available Not Available Coricidin HBP Cough and Cold 4 mg-30 mg tablet TK 1 T PO Q 6 HOURS active Not Available Not Available No t Available hydrocodo ne 5 mg-acetam inophen 325 mg tablet TAKE 1 TABLET BY MOUTH EVERY 6 HOURS FOR 7 DAYS NEEDED active Not Available Not Available No t Available Claritin 10 mg tablet Take 1 tablet every day by oral route in the morning for 30 days. 06/10 completed Not Available Not Available Not Available phenazopy ridine 200 mg tablet Take 1 tablet every 8 hours by oral route as directed for 5 days. 01/01 completed Not Available Not Available Not Available Medrol (Frederic) 4 mg tablets in a dose pack Take as directed on pack. Directio ns for Medrol Dosepak: 1st day: 2 tablets before breakfas t, 1 tablet after lunch and after supper, and 2 tablets at bedtime. 2nd day: 1 tablet before breakfas t. 1 tablet after lunch and after supper, and 2 tablets at bedtime. 3rd day: 1 tablet before breakfas t, after lunch, after supper and at bedtime. 4th day: 1 tablet before breakfas t, after lunch and at bedtime. 5th day: 1 tablet before breakfas t and at bedtime. 6th day: 1 tablet before breakfas t 05/27 completed Not Available Not Available Not Available prednison e 20 mg tablet 03/01 completed Not Available Not Available Not Available Zithromax Z-Frederic 250 mg tablet TAKE 2 TABLETS (500 MG) BY ORAL ROUTE ONCE DAILY FOR 1 DAY THEN 1 TABLET (250 MG) BY ORAL ROUTE ONCE DAILY FOR 4 DAYS 05/27 completed Not Available Not Available Not Available amlodipin e 2.5 mg tablet 06/10 completed Not Available Not Available Not Available metronida zole 500 mg tablet Take 1 tablet 3 times a day by oral route for 7 days. 03/01 completed Not Available Not Available Not Available clopidogr el 75 mg tablet TAKE 1 TABLET BY MOUTH EVERY DAY 05/27 completed Not Available Not Available Not Available amlodipin e 5 mg tablet Take by oral route for 30 days. 04/01 completed Not Available Not Available Not Available ciproflox acin 500 mg tablet TAKE 1 TABLET BY MOUTH TWICE A DAY FOR 5 DAYS 01/01 completed Not Available Not Available Not Available sulfameth oxazole 800 mg-trimet hoprim 160 mg tablet 03/01 completed Not Available Not Available Not Available aspirin 81 mg tablet,de layed release 04/01 completed Not Available Not Available Not Available sildenafi l 100 mg tablet TAKE 1 TABLET BY MOUTH NEEDED DIRECTED active Not Available Not Available No t Available triamcino lone acetonide 0.1 % topical cream 06/10 completed Not Available Not Available Not Available quinapril 40 mg tablet TAKE 1 TABLET DAILY 05/27 completed Not Available Not Available Not Available meloxicam 7.5 mg tablet Take 1 tablet every 12 hours by oral route as needed for 90 days. 2023 active Not Available Not Available Not Avai lable oxycodone -acetamin ophen 5 mg-325 mg tablet active Not Available Not Available Not Available methocarb dixie 750 mg tablet Take 1 tablet twice a day by oral route for 10 days. active Not Available Not Available No t Available benzonata te 100 mg capsule Take 1 capsule every 4-6 hours by oral route as directed for 15 days. 06/10 completed Not Available Not Available Not Available erythromy nydia 5 mg/gram (0.5 %) eye ointment 06/10 completed Not Available Not Available Not Available polymyxin B sulfate 10,000 unit-trim ethoprim 1 mg/mL eye drops 03/01 completed Not Available Not Available Not Available orphenadr ine citrate ER 100 mg tablet,ex tended release active Not Available Not Available Not Available nitroglyc marcie 0.4 mg sublingua l tablet PLACE 1 TABLET UNDER THE TONGUE EVERY 5 MINUTES NEEDED FOR CHEST PAIN active Not Available Not Available No t Available gabapenti n 300 mg capsule TAKE 3 CAPSULES BY MOUTH 3 TIMES A DAY 01/07 completed Not Available Not Available Not Available Longs Adult Low Strength ASA 81 mg tablet,de layed release Take 1 tablet every day by oral route. 08/06 completed Not Available Not Available Not Available hydrochlo rothiazid e 25 mg tablet TK 1 T PO D 01/07 completed Not Available Not Available Not Available furosemid e 20 mg tablet active Not Available Not Available Not Available metoprolo l succinate ER 25 mg tablet,ex tended release 24 hr Take 0.5 tablets every day by oral route for 30 days. active Not Available Not Available No t Available levofloxa nydia 750 mg tablet 03/01 completed Not Available Not Available Not Available Vitamin D2 1,250 mcg (50,000 unit) capsule 1 capsule by mouth once a week 03/01 completed Not Available Not Available Not Available lisinopri l 40 mg tablet active Not Available Not Available Not Available fluticaso ne propionat e 50 mcg/actua tion nasal spray,judith pension Inhale 2 sprays every day by intranas al route in the morning for 30 days. active Not Available Not Available No t Available doxycycli ne hyclate 100 mg tablet TK 1 T PO BID FOR 10 DAYS active Not Available Not Available No t Available Asprin Ec Low Dose 81 mg tablet,de layed release Take 1 tablet every day by oral route. active Not Available Not Available No t Available rosuvasta tin 10 mg tablet TAKE 1 TABLET DAILY 03/01 completed Not Available Not Available Not Available rosuvasta tin 20 mg tablet TAKE 1 TABLET DAILY QHS active Not Available Not Available No t Available Levitra 20 mg tablet TAKE 1 TABLET DAILY NEEDED 06/16 completed patient on nitro Not Available Not Available Not Available Spiriva with [employer] 18 mcg and inhalatio n capsules Inhale 1 capsule every day by inhalati on route. active Not Available Not Available No t Available Vitamin C active 500mg Not Available Not Lisa ilable Not Available Vitamin D active 50mcg Not Available Not Lisa ilable Not Available Vitamin active one a day Not Available Not Available Not Available Vitamin B12 500mg active Not Available Not Available Not Available ProAir HFA 90 mcg/actua tion aerosol inhaler active PRN Not Available Not Available Not Available Symbicort 80 mcg-4.5 mcg/actua tion HFA aerosol inhaler active PRN Not Available Not Available Not Available Lovaza 1 gram capsule Take 2 capsules twice a day by oral route. 02/24 completed pt. stopped Not Available Not Available Not Available Suprep Bowel Prep Kit 17.5 gram-3.13 gram-1.6 gram oral solution active Not Available Not Available Not Available Virtussin AC 10 mg-100 mg/5 mL oral liquid TK 5 ML PO Q 4 TO 6 H PRN 10/31 completed Not Available Not Available Not Available Vitals Date Recorded Body mass index (BMI) Body height Oxygen saturation Oxygen saturation in Arterial blood by Pulse oximetry Heart rate Body temperature Body weight Systolic blood pressure Diastolic blood pressure Provider Name and Address Organization Details Last Updated DateTime 2 32.1 kg/m2 177.8 cm 98 % 98 % 71 /min 97.3 [degF] 723654. 69 g 118 mm[Hg] 76 mm[Hg] Not Available [facility] 3 05:55:39 Date Recorded Body height Body mass index (BMI) Body weight Body temperature Respiratory rate Heart rate Oxygen saturation Oxygen saturation in Arterial blood by Pulse oximetry Systolic blood pressure Diastolic blood pressure Provider Name and Address Organization Details Last Updated DateTime 3 177.8 cm 32.6 kg/m2 303340. 47 g 98 [degF] 16 /min 76 /min 99 % 99 % 124 mm[Hg] 82 mm[Hg] Bre Valencia RN [facility] MD [employer] 3 17:12:23 Date Recorded Body height Body mass index (BMI) Body weight Body temperature Respiratory rate Heart rate Oxygen saturation Oxygen saturation in Arterial blood by Pulse oximetry Systolic blood pressure Diastolic blood pressure Provider Name and Address Organization Details Last Updated DateTime 3 177.8 cm 32.6 kg/m2 811610. 47 g 97.7 [degF] 16 /min 64 /min 98 % 98 % 120 mm[Hg] 78 mm[Hg] Bre Valencia RN [facility] MD [employer] 3 16:59:16 Date Recorded Body height Body mass index (BMI) Body weight Body temperature Heart rate Respiratory rate Oxygen saturation Oxygen saturation in Arterial blood by Pulse oximetry Systolic blood pressure Diastolic blood pressure Provider Name and Address Organization Details Last Updated DateTime 3 177.8 cm 33.3 kg/m2 724921. 43 g 98.4 [degF] 80 /min 16 /min 99 % 99 % 130 mm[Hg] 78 mm[Hg] Bre Valencia RN [facility] MD [employer] 3 17:24:48 Date Recorded Body height Body mass index (BMI) Body weight Body temperature Heart rate Respiratory rate Oxygen saturation Oxygen saturation in Arterial blood by Pulse oximetry Systolic blood pressure Diastolic blood pressure Provider Name and Address Organization Details Last Updated DateTime 3 177.8 cm 34.1 kg/m2 194472. 98 g 98.2 [degF] 70 /min 16 /min 99 % 99 % 138 mm[Hg] 80 mm[Hg] Raj Chi [facility] [employer] 3 17:03:32 Social History Question Answer Notes LastModified by Organization Details LastModified Time Tobacco Smoking Status Former Smoker Not Available [employer] 05/07/2022 05:53:27 Do You Have An Advance Directive? No [email or web address] Information not available 05/27/2022 What Is Your Level Of Alcohol Consumption? Occasional [id number] Information not available 05/07/2022 What Is Your Level Of Caffeine Consumption? Occasional [id number] Information not available 05/07/2022 In The 14 Days Before Symptom Onset, Have You Had Close Contact With A Laboratory-confi rmed COVID-19 While That Case Was Ill? No [email or web address] Information not available 05/27/2022 In The 14 Days Before Symptom Onset, Have You Had Close Contact With A Person Who Is Under Investigation For COVID-19 While That Person Was Ill? No [email or web address] Information not available 05/27/2022 Are You Currently Employed? No [email or web address] Information not available 05/27/2022 What Type Of Diet Are You Following? REGULAR [email or web address] Information not available 05/27/2022 What Is The Highest Grade Or Level Of School You Have Completed Or The Highest Degree You Have Received? AA51543-3 [email or web address] Information not available 05/27/2022 What Is Your Occupation? [employer] Retired [email or web address] Information not available 05/27/2022 Have There Been Any Changes To Your Family Or Social Situation? No [email or web address] Information not available 05/27/2022 When Did You Quit Smoking? 16+yearssincelastc igarette [email or web address] Information not available 05/27/2022 Do You Use Insect Repellent Routinely? No [email or web address] Information not available 05/27/2022 Where Do You Live? SingleLevelHouse [place] [email or web address] Information not available 05/27/2022 Do You Have A Medical Power Of Street Worker? No [email or web address] Information not available 05/27/2022 Do You Have Any Pets? Yes [email or web address] Information not available 05/27/2022 What Is Your Relationship Status? Information not available 05/27/2022 Do You Use Your Seat Belt Or Car Seat Routinely? Yes Information not available 05/27/2022 Do You Have Smoke And Carbon Monoxide Detectors In Your Home? Yes [email or web address] Information not available 05/27/2022 Are You Passively Exposed To Smoke? Yes [email or web address] Information not available 05/27/2022 Are There Any Smokers In Your House? Yes [email or web address] Information not available 05/27/2022 Do You Feel Stressed (tense, Restless, Nervous, Or Anxious, Or Unable To Sleep At Night)? [id number] [email or web address] Information not available 05/27/2022 Do You Use Any Illicit Or Recreational Drugs? No [id number] Information not available 05/07/2022 Do You Use Sunscreen Routinely? No [email or web address] Information not available 05/27/2022 Have You Recently Traveled Abroad? No [email or web address] Information not available 05/27/2022 Do You Have Any Dietary Restrictions? No [email or web address] Information not available 05/27/2022 Sex: Unknown Functional Status Question Answer Note LastModified by Organizat ion Details LastModified Time What is your exercise level? Occasional [email or web address] Information not available 05/27/2022 Mental Status None recorded. Family History Relationship Description Onset Age of this Age Resolved Age Notes LastModified by Organization Details LastModified Time Father Hypertensive disorder [email or web address] Not available 2022 16:12:49 Father Aneurysm [email or web address] Not availabl e 05/27/2022 16:13:05 Mother Coronary artery bypass graft [email or web address] Not available 16:13:44 Mother Diabetes mellitus [email or web address] Not available 2022 16:13:56 Notes:Father High Blood Pres sure, Aneurysm, Mother bypass, Diabetes. Medical History No medical history recorded. Immunizations Vaccine Type Date Status Note Provider Nam e and Address Organization Details Recorded Time COVID-19, mRNA, LNP-S, PF, 30 mcg/0.3 mL dose 08/16/2020 completed Not Available [facility] 3 06:05:12 COVID-19, mRNA, LNP-S, PF, 30 mcg/0.3 mL dose 07/26/2020 completed Not Available [facility] 3 06:05:12 Tdap 03/09/2013 completed Not Available [facility] 05/07/2022 06:05:12 Past Encounters Encounter ID Performer Location Encounter Start Date Encounter Closed Date Diagnosis/Indication Diagnosis SNOMED-CT Code Diagnosis ICD10 Code Diagnosis Note [id number] [facility] Michelle birch [address] [place] [address] 10/31/2020 00:00:00 10/31/2020 17:29:24 [id number] [facility] [place] [address] [place] [address] 03/12/2021 00:00:00 03/12/2021 16:46:22 [id number] [facility] [place] [address] [place] [address] 12/05/2021 00:00:00 12/05/2021 15:58:24 [id number] Ayad Lambert MD [address] [address] 05/27/2022 17:02:12 05/27/2022 17:48:39 Adult health examination 558319929 Z00.00 Vitamin D deficiency 347 11905 E55.9 Obesity 466150217 E66.9 Chronic low back pain 27 7190081 M54.50 Erectile dysfunction 860 750898 F52.21 [id number] Ayad Lambert MD [address] [address] 07/02/2022 16:44:56 07/02/2022 17:11:08 Vitamin D deficiency 60489054 E55.9 Improved Obesity 710974320 E66.9 Chronic low back pain 27 8735250 M54.50 Erectile dysfunction 860 236357 F52.21 Hyperlipidemia 83500751 E78.5 Degenerati on of lumbar intervertebral disc 18627696 M51.36 Hypertensive disorder 38 614239 I10 [id number] Ayad Lambert MD [address] [address] 09/03/2022 17:16:13 09/03/2022 17:37:19 Dysuria 61703860 R30.0 Urinary tr act infectious disease 94514056 N39.0 [id number] Ayad Lambert MD [address] [address] 01/01/2023 16:56:13 01/01/2023 17:31:34 Degeneration of lumbar intervertebral disc 72178625 M51.36 Chronic low back pain 27 3693382 M54.50 Vitamin D deficiency 347 90194 E55.9 Improved Obesity 889264234 E66.9 Erectile dysfunction 860 156878 F52.21 Hyperlipidemia 37566963 E78.5 Hypertensive disorder 38 589387 I10 Ex-smoker 0675850 Z87.89 1 Health Concerns Section Related Observation LastModified by Organization Detai ls LastModified Time None Recorded Concern Status LastModified by Organization Details LastModified Time None Recorded Advance Directives Directive N: Payers Encounter Date Sequence Insurance Name Policy Number Policy Ibarra Covered Member ID Ibarra Member ID Guarantor Name 05/27/2022 1 [employer] (POS) [id number] Cong Floyd [id number] Cong Floyd 07/02/2022 1 [employer] (POS) [id number] Cong Floyd [id number] Cong Floyd 09/03/2022 1 [employer] (POS) [id number] Cong Floyd [id number] Cong Floyd 01/01/2023 1 [employer] (MEDICARE REPLACEMENT PPO) [id number] Cong Floyd [id number] Cong Floyd Notes Date Note Type Note Provider Name and Address Organization Details Recorded Time 05/27/2022 text/html New pt visit:66 yo M is here to establish his care. Pt was seeing PCP at [facility] in the past.Doing overall well. C/o chronic low back pain for last few months. Pt had back surgery done 15 yrs ago and since than, he is doing well with it. Denies any incontinence. Pt has CAD and is f/u with Cardio at [place].PMH, FH and SH reviewed with pt. Ayad Lambert MD [address] [place] [address], [place] [address], [place], [address], [facility] 05/27/2022 17:46:25 07/02/2022 text/html Pt is here for f/u on his annual labs. Doing overall well. Denies any new concerns. C/o chronic low back pain for last few months. Pt had back surgery done 15 yrs ago and since than, he is doing well with it. Denies any incontinence. Pt has CAD and is f/u with Cardio at [place]. Ayad Lambert MD [address], [address], [place], [address], [place] 07/02/2022 17:13:34 09/03/2022 text/html ACV: C/o urinary urgency, frequency, burning for last 4 days. No fever/chills/n/v /d/blood in urine. Denies any penile/scrotal icqfw-uoht-ybcqo arge. No STI concern. Ayad Lambert MD [address], [address], [place], [address], [place] 09/03/2022 17:36:01 01/01/2023 text/html Pt is here for f/u on his labs and chronic conditions. Doing overall well. Denies any new concerns. Pt says he got his lipids done with his cardio last month and its getting better. No concern with it. C/o chronic low back pain for last few months. Pt had back surgery done 15 yrs ago and since than, he is doing well with it. Denies any incontinence. Pt has CAD and is f/u with Cardio at [place]. Ayad Lambert MD [address], [facility] [address], [place], [address], [place] 01/01/2023 17:24:26
--- OUTSIDE RECORDS SUMMARY | 2024-06-16 15:29 | XMS_ITS | Clinical Summary ---
Author Organization [facility] Address [address] [place] [address] Care Team Providers Care Digital Marketing Consultant Name Role Phone Kymberly Arauz NP Primary Care Provider [phone] Allergies Active Allergy Reactions Criticality Noted Date [...] (06/11/2018): Added automatically from request for surgery [id number] Abnormal stress test 04/19/2018 Overview (04/19/2018): Added automatically from request for surgery [id number] Bilateral plantar fasciitis 12/22/20170 08/2022 Diastolic heart [...] Department Care Team Description 05/05/2024 3:15 PM STRUCTURAL STEEL ENGINEER Ancillary Procedure [facility] at the [facility] Medicine [address] [facility] [address]th [place] [address] [place] [address] Iliac artery stenosis, right; Iliac artery aneurysm 04/26/2024 Telephone [facility] Surgery [address] [facility] Floor [address] [place] [address] Maggie Moore MD 04/06/2024 Telephone [facility] Cardiology [address]th [place] [address] [place] [address] Jeferson Macias MD from Last 3 Months Immunizations Immunization Administration [...] on file Legal Sex Male 2:38 AM STRUCTURAL STEEL ENGINEER Gender Identity Not on file Sexual Orientation Not on file Obstetrics History Last Filed Vital Signs Vital Sign Reading Time Taken Comments Blood Pressure 144/91 01/27/2024 12:57 PM STRUCTURAL STEEL ENGINEER Pulse 74 01/27/2024 12:57 PM STRUCTURAL STEEL ENGINEER Temperature 36.2 C (97.1 F) 01/27/2024 12:57 PM STRUCTURAL STEEL ENGINEER Respiratory Rate 16 12/08/2023 10:45 AM CDT Oxygen Saturation 98% 01/27/2024 12:57 PM STRUCTURAL STEEL ENGINEER Inhaled Oxygen Concentration - - Weight 109.3 kg (241 lb) 01/27/2024 12:57 PM STRUCTURAL STEEL ENGINEER Height 177.8 cm (5' 10 ) 01/27/2024 12:57 PM STRUCTURAL STEEL ENGINEER Body Mass Index 34.58 01/27/2024 12:57 PM STRUCTURAL STEEL ENGINEER Plan of Treatment Health Maintenance Due Date [...] 01/19/2015, 07/05/2014 Medical Devices Implanted Type Area Matcher Leather Parts Device Identifier Shelf Expiration Date Model / Serial / Lot [employer] [id number] Synergy 3mm 28mm 144cm Radiopaque 1 Access Port Inflation Lumen - [id number] Implanted:Qty: 1 on 06/24/2018 by Aiden Toussaint MD at [facility] [employer] 04/04/2020 [id number] / / [id number] Procedures Procedure Name Priority Date/Time Associated Diagnosis Comments US ARTERIAL DOPPLER LOWER EXTREMITY BILATERAL Schedule Routine, Read Routine (OP Routine) 05/05/2024 3:50 PM STRUCTURAL STEEL ENGINEER Iliac artery stenosis, right Iliac artery aneurysm CTA ABDOMINAL AORTA AND BILATERAL ILIOFEMORAL RUNOFF Schedule Routine, Read Routine (OP Routine) 02/16/2024 9:02 AM STRUCTURAL STEEL ENGINEER Aneurysm of common iliac artery COLONOSCOPY 12/08/2023 9:55 AM CDT from Last 3 Months or Most Recently Relevant to Health Maintenance Results * US Arterial Doppler Lower Extremity Bilateral (05/05/2024 3:50 PM STRUCTURAL STEEL ENGINEER) Anatomical Region Laterality Modality Vascular Bilateral Ultrasound 05/05/2024 3:28 PM STRUCTURAL STEEL ENGINEER Narrative 05/05/2024 5:50 PM STRUCTURAL STEEL ENGINEER [facility] of Medicine - Department of Vascular Surgery, Vascular Laboratory [address] [place] [address] Lower Extremity Arterial Doppler Report Patient Name: DEONTE FLOYD : 1955 Study Date: 05/05/2024 3:28:00 PM Gender: M Tech: Gela Montague RVT Location: [facility] Provider: MAGGIE MOORE Quality: Adequate Order Provider: MAGGIE MOORE PROCEDURES: Arterial Report: Bilateral lower extremity arterial Doppler exam at rest. 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 MEASUREMENTS: Right Value Units Left Value Units Rt Brachial Pressure 127 mmHg Lt Brachial Pressure 136 mmHg Rt COMMUNITY PLANNER Pressure 135 mmHg Lt COMMUNITY PLANNER Pressure 133 mmHg Rt DPA Pressure 124 mmHg Lt DPA Pressure 149 mmHg Rt 1st Digit Pressure 116 mmHg Lt 1st Digit Pressure 115 mmHg Rt PT CAM Resting 0.99 Lt PT CAM Resting 0.98 Rt AT CAM Resting 0.91 Lt AT CAM Resting 1.1 Rt Digit/Arm Index 0.85 Lt Digit/Arm Index 0.85 Right Value Units Left Value Units FINDINGS: Performing Leak Gang Supervisor: Yolie Montague RVT. Bilateral All Levels : [...] Erick Vega MD FACS 05/05/2024 4:57:07 PM STRUCTURAL STEEL ENGINEER Procedure Note Erick Vega MD - 05/05/2024 [facility] - Department of Vascular Surgery,Vascular Laboratory [address] [place] [address] Lower Extremity Arterial Doppler Report Patient Name: DEONTE FLOYD : 1955 Study Date: 05/05/2024 3:28:00 PM Gender: M Tech: Gela Montague [facility] Location: [facility] Ref Provider: MAGGIE MOORE Quality: Adequate Order Provider: MAGGIE MOORE PROCEDURES: Arterial Report: Bilateral lower extremity arterial Doppler exam at rest. 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 MEASUREMENTS: Right Value Units Left Value Units Rt Brachial Pressure 127 mmHg Lt Brachial Pressure 136 mmHg Rt COMMUNITY PLANNER Pressure 135 mmHg Lt COMMUNITY PLANNER Pressure 133 mmHg Rt DPA Pressure 124 mmHg Lt DPA Pressure 149 mmHg Rt 1st Digit Pressure 116 mmHg Lt 1st Digit Pressure 115 mmHg Rt PT CAM Resting 0.99 Lt PT CAM Resting 0.98 Rt AT CAM Resting 0.91 Lt AT CAM Resting 1.1 Rt Digit/Arm Index 0.85 Lt Digit/Arm Index 0.85 Right Value Units Left Value Units FINDINGS: Performing Leak Gang Supervisor: Yolie Montague RVT. Bilateral All Levels : [...] Erick Vega MD FACS 05/05/2024 4:57:07 PM STRUCTURAL STEEL ENGINEER Maggie Moore MD [facility] US PROCEDURES Final Re sult * CTA Abdominal Aorta And Bilateral Iliofemoral Runoff (02/16/2024 9:02 AM STRUCTURAL STEEL ENGINEER) Anatomical Region Laterality Modality Body Bilateral Computed Tomogra phy 02/16/2024 11:1 7 AM STRUCTURAL STEEL ENGINEER Impressions 02/16/2024 12:29 PM STRUCTURAL STEEL ENGINEER 1. Right lower extremity: Severe focal stenosis [...] Zackary Lee M.D. Narrative 02/16/2024 12:29 PM STRUCTURAL STEEL ENGINEER EXAMINATION: CT ANGIOGRAPHY OF THE ABDOMEN, PELVIS, [...] Male Attending MD: Freddie Reed M.D. Room: [facility] ENDOSCOPY ROOM 01 Note Status: [...] The scope was passed under direct vision.The [id number] was introduced through the anusand advanced to [...] Most Recently Relevant to Health Maintenance Insurance [facility] MEDICARE ADVANTAGE [facility] MEDICARE ADVANTAGE Advance Directives For more information, please contact: [phone] * Full Code (Latest Code Status on File) Date Activated Date Inactivated Comments 12/08/2023 8:42 AM 12/08/2023 3:07 PM * Full Code Date Activated Date Inactivated Comments 11/25/2023 8:38 AM 11/26/2023 5:15 AM * Full Code Date Activated Date Inactivated Comments 06/24/2018 10:35 AM 06/24/2018 6:55 PM Care Teams Digital Marketing Consultant Relationship Specialty Start Date End Date Kymberly Arauz NP [address] [place] [address] PCP - General Nurse Practitioner 07/27/23
--- OUTSIDE RECORDS SUMMARY | 2024-06-16 15:30 | XMS_ITS | Encounter Summary ---
Author Organization [facility] Address [address] [place] [address] Phone Care Team Providers Care Towel Stretcher Name Role Phone Kymberly Arauz NP Primary Care Provider [phone] Ayad Lambert MD Primary Care Provider [phone] Kymberly Arauz NP Primary Care Provider [phone] Encounter Details Date Type Department Care Team (Late st Contact Info) Description 05/08/2022 Telephone [facility] Cardiology [address] [facility] 8th [place] [address] [place] [address] Jeferson Macias MD [address] [facility] [place] [address] [place], [place] [id number] Social History Tobacco Use Types Packs/Day Years Used Date Smoking Tobacco: Former Cigarettes 1 28 0 05/06/1971 - 05/06/1999 Smokeless Tobacco: Never Alcohol Use Standard Drinks/Week Comments Defer 0 (1 standard drink = 0.6 oz pur e alcohol) Sex and Gender Information Value Date Recorded Sex Assigned at Not on file Legal Sex Male 2:38 AM COMPONENT PREP OPERATOR Gender Identity Not on file Sexual Orientation Not on file documented as of this encounter Plan of Treatment Not on file documented as of this encounter Visit Diagnoses Not on filedocumented in this encounter Care Teams Towel Stretcher Relationship Specialty Start Date End Date Kymberly Arauz NP PCP - General 01/09/17 07/06/22 Ayad Lambert MD [address] [place] [address] [place] [address] PCP - General Family Medicine 07/07/22 07/26/23 Kymberly Arauz NP [address] [place] [address] PCP - General Nurse Practitioner 07/27/23 documented as of this encounter
--- OUTSIDE RECORDS SUMMARY | 2024-06-16 15:30 | XMS_ITS | Referral Summary ---
Author Organization [facility] Address [address] [place] [address] Care Team Providers Care Roadmaster Name Role Phone Kymberly Arauz NP Primary Care Provider [phone] Encounters Date Type Department Care Team Description 05/05/2024 3:15 PM HAND PLUG SHAPER Ancillary Procedure [facility] Vascular Lab at the [facility] Advanced Medicine [address] [facility] 8th [place] [address] [place] [address] Iliac artery stenosis, right; Iliac artery aneurysm 04/26/2024 Telephone [facility] Surgery [address] [facility] Floor 1 [place] [address] Maggie Moore MD 04/06/2024 Telephone [facility] Cardiology [address] [facility] 8th [place] [address] [place] [address] Jeferson Macias MD from Last 3 Months Allergies Active Allergy [...] (06/11/2018): Added automatically from request for surgery [id number] Abnormal stress test 04/19/2018 Overview (04/19/2018): Added automatically from request for surgery [id number] Bilateral plantar fasciitis 12/22/201708/2022 Diastolic heart failure [...] on file Legal Sex Male 2:38 AM HAND PLUG SHAPER Gender Identity Not on file Sexual Orientation Not on file Last Filed Vital Signs Vital Sign Reading Time Taken Comments Blood Pressure 144/91 01/27/2024 12:57 PM HAND PLUG SHAPER Pulse 74 01/27/2024 12:57 PM HAND PLUG SHAPER Temperature 36.2 C (97.1 F) 01/27/2024 12:57 PM HAND PLUG SHAPER Respiratory Rate 16 12/08/2023 10:45 AM CDT Oxygen Saturation 98% 01/27/2024 12:57 PM HAND PLUG SHAPER Inhaled Oxygen Concentration - - Weight 109.3 kg (241 lb) 01/27/2024 12:57 PM HAND PLUG SHAPER Height 177.8 cm (5' 10 ) 01/27/2024 12:57 PM HAND PLUG SHAPER Body Mass Index 34.58 01/27/2024 12:57 PM HAND PLUG SHAPER Plan of Treatment Not on file Medical Devices Implanted Type Area Spray Drier Device Identifier Shelf Expiration Date Model / Serial / Lot [employer] [id number] Synergy 3mm 28mm 144cm Radiopaque 1 Access Port Inflation Lumen - [id number] Implanted:Qty: 1 on 06/24/2018 by Aiden Toussaint MD at [facility] [employer] 04/04/2020 [id number] 300 / / [id number] Procedures Procedure Name Priority Date/Time Associated Diagnosis Comments US ARTERIAL DOPPLER LOWER EXTREMITY BILATERAL Schedule Routine, Read Routine (OP Routine) 05/05/2024 3:50 PM HAND PLUG SHAPER Iliac artery stenosis, right Iliac artery aneurysm CTA ABDOMINAL AORTA AND BILATERAL ILIOFEMORAL RUNOFF Schedule Routine, Read Routine (OP Routine) 02/16/2024 9:02 AM HAND PLUG SHAPER Aneurysm of common iliac artery COLONOSCOPY 12/08/2023 9:55 AM CDT from Last 3 Months or Most Recently Relevant to Health Maintenance Results * US Arterial Doppler Lower Extremity Bilateral (05/05/2024 3:50 PM HAND PLUG SHAPER) Anatomical Region Laterality Modality Vascular Bilateral Ultrasound 05/05/2024 3:28 PM HAND PLUG SHAPER Narrative 05/05/2024 5:50 PM HAND PLUG SHAPER [facility] of Medicine - Department of Vascular Surgery, Vascular Laboratory [address] [place] [address] Lower Extremity Arterial Doppler Report Patient Name: DEONTE FLOYD : 1955 Study Date: 05/05/2024 3:28:00 PM Gender: M Tech: Gela Montague RVT Location: [facility] Provider: MAGGIE MOORE Quality: Adequate Order Provider: MAGGIE MOORE PROCEDURES: Arterial Report: Bilateral lower extremity arterial Doppler exam at rest. 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 MEASUREMENTS: Right Value Units Left Value Units Rt Brachial Pressure 127 mmHg Lt Brachial Pressure 136 mmHg Rt ELECTRIC ORGAN INSPECTOR AND REPAIRER Pressure 135 mmHg Lt ELECTRIC ORGAN INSPECTOR AND REPAIRER Pressure 133 mmHg Rt DPA Pressure 124 mmHg Lt DPA Pressure 149 mmHg Rt 1st Digit Pressure 116 mmHg Lt 1st Digit Pressure 115 mmHg Rt PT CAM Resting 0.99 Lt PT CAM Resting 0.98 Rt AT CAM Resting 0.91 Lt AT CAM Resting 1.1 Rt Digit/Arm Index 0.85 Lt Digit/Arm Index 0.85 Right Value Units Left Value Units FINDINGS: Performing Service Desk Director: Yolie Montague RVT. Bilateral All Levels : [...] Erick Vega MD FACS 05/05/2024 4:57:07 PM HAND PLUG SHAPER Procedure Note Erick Vega MD - 05/05/2024 [facility] - Department of Vascular Surgery,Vascular Laboratory [address] [place] [address] Lower Extremity Arterial Doppler Report Patient Name: DEONTE FLOYD : 1955 Study Date: 05/05/2024 3:28:00 PM Gender: M Tech: Gela Montague [facility] Location: [facility] Provider: MAGGIE MOORE Quality: Adequate Order Provider: MAGGIE MOORE PROCEDURES: Arterial Report: Bilateral lower extremity arterial Doppler exam at rest. 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 MEASUREMENTS: Right Value Units Left Value Units Rt Brachial Pressure 127 mmHg Lt Brachial Pressure 136 mmHg Rt ELECTRIC ORGAN INSPECTOR AND REPAIRER Pressure 135 mmHg Lt ELECTRIC ORGAN INSPECTOR AND REPAIRER Pressure 133 mmHg Rt DPA Pressure 124 mmHg Lt DPA Pressure 149 mmHg Rt 1st Digit Pressure 116 mmHg Lt 1st Digit Pressure 115 mmHg Rt PT CAM Resting 0.99 Lt PT CAM Resting 0.98 Rt AT CAM Resting 0.91 Lt AT CAM Resting 1.1 Rt Digit/Arm Index 0.85 Lt Digit/Arm Index 0.85 Right Value Units Left Value Units FINDINGS: Performing Service Desk Director: Yolie Montague RVT. Bilateral All Levels : [...] above. Electronically Signed By: Erick Vega MD [facility] 05/05/2024 4:57:07 PM HAND PLUG SHAPER Maggie Moore MD IMG US PROCEDURES Final Re sult * CTA Abdominal Aorta And Bilateral Iliofemoral Runoff (02/16/2024 9:02 AM HAND PLUG SHAPER) Anatomical Region Laterality Modality Body Bilateral Computed Tomogra phy 02/16/2024 11:1 7 AM HAND PLUG SHAPER Impressions 02/16/2024 12:29 PM HAND PLUG SHAPER 1. Right lower extremity: Severe focal stenosis [...] Zackary Lee M.D. Narrative 02/16/2024 12:29 PM HAND PLUG SHAPER EXAMINATION: CT ANGIOGRAPHY OF THE ABDOMEN, PELVIS, [...] Male Attending MD: Freddie Reed M.D. Room: [facility] ENDOSCOPY ROOM 01 Note Status: Finalized Procedure: [...] The scope was passed under direct vision.The [id number] was introduced through the anusand advanced to [...] Most Recently Relevant to Health Maintenance Insurance [facility] MEDIC[facility] ADVANTAGE Advance Directives For more information, please contact: [phone] * Full Code (Latest Code Status on File) Date Activated Date Inactivated Comments 12/08/2023 8:42 AM 12/08/2023 3:07 PM * Full Code Date Activated Date Inactivated Comments 11/25/2023 8:38 AM 11/26/2023 5:15 AM * Full Code Date Activated Date Inactivated Comments 06/24/2018 10:35 AM 06/24/2018 6:55 PM Care Teams Roadmaster Relationship Specialty Start Date End Date Kymberly Arauz NP [address] [place] [address] PCP - General Nurse Practitioner 07/27/23
--- OUTSIDE RECORDS SUMMARY | 2024-06-16 15:30 | XMS_ITS | Encounter Summary ---
Author Organization [facility] Address [address] [place] [address] Phone Care Team Providers Care Drip Box Tender Name Role Phone Kymberly Arauz NP Primary Care Provider [phone] Ayad Lambert MD Primary Care Provider [phone] Kymberly Arauz NP Primary Care Provider [phone] Encounter Details Date Type Department Care Team (Latest Contact Info) Description 12/19/2021 Orders Only [facility] Annabel Gonzáles, HERBERTH [address] [facility] [address] [place] [address] Social History Tobacco Use Types Packs/Day Years Used Date Smoking Tobacco: Former Cigarettes 1 28 0 05/06/1971 - 05/06/1999 Smokeless Tobacco: Never Alcohol Use Standard Drinks/Week Comments Defer 0 (1 standard drink = 0.6 oz pur e alcohol) Sex and Gender Information Value Date Recorded Sex Assigned at Not on file Legal Sex Male 2:38 AM SEO INTERN Gender Identity Not on file Sexual Orientation [...] on filedocumented in this encounter Care Teams Drip Box Tender Relationship Specialty Start Date End Date Kymberly Arauz NP PCP - General 01/09/17 07/06/22 Ayad Lambert MD [address] [facility] [place] [address] PCP - General Family Medicine 07/07/22 07/26/23 Kymberly Arauz NP [address] [place] [address] PCP - General Nurse Practitioner 07/27/23 documented as of this encounter
[2024-06-16 15:34] VITALS: BP 143/73; PULSE 102; RESP 16; TEMP 37.6; O2SAT 97
--- OUTSIDE RECORDS SUMMARY | 2024-06-16 16:42 | XMS_ITS | Encounter Summary ---
Author Organization [facility] Address [address] [place] [address] Phone Care Team Providers Care Lye Bath Operator Name Role Phone Kymberly Arauz NP Primary Care Provider [phone] Ayad Lambert MD Primary Care Provider [phone] Kymberly Arauz NP Primary Care Provider [phone] Encounter Details Date Type Department Care Team (Latest Contact Info) Description 05/10/2018 Orders Only [facility] Scanning, Provider Social History Tobacco Use Types Packs/Day Years Used Date Smoking Tobacco: Former Cigarettes 1 28 0 05/06/1971 - 05/06/1999 Smokeless Tobacco: Never Sex and Gender Information Value Date Recorded Sex Assigned at Not on file Legal Sex Male 2:38 AM PSYCHIATRY PHYSICIAN Gender Identity Not on file Sexual Orientation [...] on filedocumented in this encounter Care Teams Lye Bath Operator Relationship Specialty Start Date End Date Kymberly Arauz NP PCP - General 01/09/17 07/06/22 Ayad Lambert MD [address] [facility] [place] [address] PCP - General Family Medicine 07/07/22 07/26/23 Kymberly Arauz NP [address] [place] [address] PCP - General Nurse Practitioner 07/27/23 documented as of this encounter
--- OUTSIDE RECORDS SUMMARY | 2024-06-16 16:42 | XMS_ITS | Clinical Summary ---
Author Organization [facility] Address [address] [place] [address] Care Team Providers Care Color Television Console Monitor Name Role Phone Nay Verduzco MD Primary Care Provider Source Comments [facility],non-select specialty hospital Affiliates and Associated Physician Practices is amultiple site organization consisting of ambulatory clinics and hospital sitesin [place], [place], [place]. This disclosure is being madepursuant to the Care Everywhere program and may not contain all information available regarding this patient. Last updated 17.[facility] Social History Tobacco Use Types Packs/Day [...] age to complete this topic Care Teams Color Television Console Monitor Relationship Specialty Start Date End Date Nay Verduzco MD [address] [place] [phone] PCP - General 07/21/18
--- OUTSIDE RECORDS SUMMARY | 2024-06-16 16:42 | XMS_ITS | Encounter Summary ---
Author Organization [facility] Address [address] [place] [address] Phone Care Team Providers Care Transportation Department Head Name Role Phone Kymberly Arauz NP Primary Care Provider [phone] Ayad Lambert MD Primary Care Provider [phone] Kymberly Arauz NP Primary Care Provider Encounter Details Date Type Department Care Team (Late st Contact Info) Description 12/09/2017 Telephone [facility] Cardiology [address] [facility] Advanced Medicine 8th [place] [address] [place] [address] Jeferson Macias MD [address] [facility] [place] [address] [place], [place] [id number] Social History Tobacco Use Types Packs/Day Years Used Date Smoking Tobacco: Former Smokeless Tobacco: Never Sex and Gender Information Value Date Recorded Sex Assigned at Not on file Legal Sex Male 2:38 AM BIOMETRICS CONSULTANT Gender Identity Not on file Sexual Orientation Not on file documented as of this encounter Plan of Treatment Not on file documented as of this encounter Visit Diagnoses Not on filedocumented in this encounter Care Teams Transportation Department Head Relationship Specialty Start Date End Date Kymberly Arauz NP PCP - General 01/09/17 07/06/22 Ayad Lambert MD [address] [place] [address] [place] [address] PCP - General Family Medicine 07/07/22 07/26/23 Kymberly Arauz NP [address] [place] [address] PCP - General Nurse Practitioner 07/27/23 documented as of this encounter
--- OUTSIDE RECORDS SUMMARY | 2024-06-16 16:43 | XMS_ITS | Continuity of Care Document ---
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 Name Role Phone Priyanka MS, OTR/L, CHT, [place] Unavailable Unavailable Procedures Procedure Date Therapeutic Exercise Therapeutic Activities Neuromuscular Re-Ed Manual Therapy Progress Note Therapeutic Exercise Therapeutic Activities Manual Therapy Therapeutic Exercise Therapeutic Activities Manual Therapy Therapeutic Exercise Therapeutic Activities Manual Therapy Therapeutic Exercise Therapeutic Activities Neuromuscular Re-Ed Manual Therapy Therapeutic Exercise Therapeutic Activities Manual Therapy Therapeutic Exercise Therapeutic Activities Manual Therapy Therapeutic Exercise Therapeutic Activities Manual Therapy Therapeutic Exercise Therapeutic Activities Neuromuscular Re-Ed Manual Therapy Therapeutic Exercise Therapeutic Activities Manual Therapy Hot or Cold Pack Therapeutic Exercise Therapeutic Activities Manual Therapy Hot or Cold Pack Therapeutic Exercise Therapeutic Activities Manual Therapy Hot or Cold Pack Therapeutic Exercise Therapeutic Activities Neuromuscular Re-Ed Manual Therapy Therapeutic Exercise Therapeutic Activities Neuromuscular Re-Ed Manual Therapy Progress Note Therapeutic Exercise Therapeutic Activities Neuromuscular Re-Ed Manual Therapy Hot or Cold Pack Therapeutic Activities Neuromuscular Re-Ed Manual Therapy Hot or Cold Pack Therapeutic Activities Neuromuscular Re-Ed Manual Therapy Hot or Cold Pack Therapeutic Activities Manual Therapy Hot or Cold Pack Therapeutic Activities Neuromuscular Re-Ed Manual Therapy Hot or Cold Pack Therapeutic Activities Neuromuscular Re-Ed Manual Therapy Hot or Cold Pack Progress Note Therapeutic Activities Neuromuscular Re-Ed Manual Therapy Hot or Cold Pack Therapeutic Activities Neuromuscular Re-Ed Manual Therapy Hot or Cold Pack Therapeutic Activities Neuromuscular Re-Ed Manual Therapy Hot or Cold Pack OT Re-Evaluation Therapeutic Exercise Therapeutic Activities Manual Therapy Hot or Cold Pack Progress Note Therapeutic Exercise Therapeutic Exercise Therapeutic Activities Neuromuscular Re-Ed Manual Therapy Hot or Cold Pack Therapeutic Exercise Therapeutic Activities Neuromuscular Re-Ed Manual Therapy Hot or Cold Pack Therapeutic Exercise Therapeutic Activities Neuromuscular Re-Ed Manual Therapy Hot or Cold Pack Progress Note Therapeutic Exercise Therapeutic Activities Neuromuscular Re-Ed Manual Therapy Hot or Cold Pack Therapeutic Exercise Therapeutic Activities Neuromuscular Re-Ed Manual Therapy Hot or Cold Pack Ultrasound Therapeutic Exercise Therapeutic Activities Neuromuscular Re-Ed Manual Therapy Ultrasound Therapeutic Exercise Therapeutic Activities Neuromuscular Re-Ed Manual Therapy Hot or Cold Pack Therapeutic Exercise Therapeutic Activities Manual Therapy Paraffin Bath Therapeutic Exercise Therapeutic Activities Neuromuscular Re-Ed Manual Therapy Orthotic adjustment Therapeutic Exercise Therapeutic Activities Neuromuscular Re-Ed Manual Therapy Ultrasound Therapeutic Exercise Therapeutic Activities Neuromuscular Re-Ed Manual Therapy Hot or Cold Pack Progress Note Therapeutic Exercise Therapeutic Activities Manual Therapy Therapeutic Exercise Therapeutic Activities Manual Therapy Therapeutic Exercise Therapeutic Activities Manual Therapy Hot or Cold Pack Orthotic adjustment Therapeutic Exercise Therapeutic Activities Manual Therapy Hot or Cold Pack Therapeutic Exercise Therapeutic Activities Manual Therapy Orthotic fitting and training 7 Therapeutic Exercise Therapeutic Activities Manual Therapy Hot or Cold Pack OT Evaluation Moderate Complexity Therapeutic Exercise Manual Therapy Hot or Cold Pack PT EVALUATION THERAPEUTIC EXERCISES NEUROMUSCULAR RE-ED ORTHOTIC FITTING Non-compressive stockinette per foot Mar Hand OT RE-EVALUATION THERAPEUTIC EXERCISES ORTHOTIC FITTING Hand OT RE-EVALUATION THERAPEUTIC EXERCISES No Charge Splint Adjustment THERAPEUTIC EXERCISES ORTHOTIC FITTING OT EVALUATION THERAPEUTIC EXERCISES ORTHOTIC FITTING Non-compressive stockinette per foot Dec Static Clamshell Splint Advance Directives Directive Yes / No Effective Date File Name No Information Encounters Encounter Description Practice Location Reason(s) For Visit Diagnoses Date Provider Providers Copied on Encounter [facility] [facility] [place], [place], [id number], tel:[phone] [place] No Information 8 Priyanka Moise. [address], [facility], [place]. tel:[phone] [facility] [address], [place], [place], [address], tel:[phone] [place] No Information 8 Priyanka Moise. [address] [facility], [facility] [address], [place], [facility], . tel:[phone] [facility], [place], [place], [address], tel:[phone] [place] No Information 8 Hauschild Suma. [address] [facility], [address], [place], [address], [place]. tel:[phone] [facility], [address], [place], [place], [address], [place] tel:[phone] [place] No Information 8 Hauschild Suma. [address] [place] [address], [address], [place], [address], [place]. tel:[phone] [facility], [address], [place], [place], [address], [place] tel:[phone] [place] No Information 8 Hauschild Suma. [address] [place] [address], [address], [place], [address], [place]. tel:[phone] [facility] [address], [place], [place], [address], [place] tel:[phone] [place] No Information 8 Hauschild Suma. [address] [place] [address], [address], [place], [address], [place]. tel:[phone] [facility], [address], [place], [place], [address], [place] tel:[phone] [place] No Information 8 Hauschild Suma. [address] [place] [address], [address], [place], [address], [place]. tel:[phone] [facility] [address], [place], [place], [address], [place] tel:[phone] [place] No Information 8 Hauschild Suma. [address] [place] [address], [address], [place], [address], [place]. tel:[phone] [facility], [place], [address], [place] tel:[phone] [place] No Information Young-0 8-201 8 Hauschild Suma. [address] [place] [address], [address], [place], [facility], [place]. tel:[phone] [facility], [facility] [address], [place], [place], [address], [place] tel:[phone] [place] No Information Mar-0 5-201 8 [place], [place]. [facility], [address], [place], [place], [address], [place] tel:[phone] [place] No Information Mar-0 3-201 8 Hauschild Suma. [address] [place] [address], [address], [place], [facility], [place]. tel:[phone] [facility], [address] [place], [place] [address], [place], [place], [address], [place] tel:[phone] [place] No Information Dec-2 7-201 7 Hauschild Suma. [address] [place] [address], [address], [place], [address], [place]. tel:[phone] [facility] [address] [place], [place] [address], [place], [address], [place] tel:[phone] [place] No Information Dec-2 2-201 7 Hauschild Suma. [address] [place] [address], [address], [place], [address], [place]. tel:[phone] [facility] [address] [place], [place] [address], [place], [place], [address], [place] tel:[phone] [place] No Information Dec-1 8-201 7 Hauschild Suma. [address] [place] [address], [address], [place], [address], [place]. tel:[phone] [address], [place], [place], [address], [place] tel:[phone] [place] No Information Dec-0 8-201 7 Hauschild Suma. [address] [place] [address], [address], [place], [address], [place]. tel:[phone] [facility], [address] [place] [address] [address], [place], [place], [address], [place] tel:[phone] [place] No Information Dec-0 4-201 7 Hauschild Suma. [address] [place] [address], [address], [place], [address], [place]. tel:[phone] [facility], [address] [place], [place] [address] [address], [place], [place], [address], [place] tel:[phone] [place] No Information Dec-0 1-201 7 Hauschild Suma. [address] [place] [address], [address], [place], [address], [place]. tel:[phone] [address], [place], [place], [address], [place] tel:[phone] [place] No Information Nov-2 7-201 7 Hauschild Suma. [address] [place] [address], [address], [place], [address], [place]. tel:[phone] [address], [place], [place], [address], [place] tel:[phone] [place] No Information Nov-2 4-201 7 Hauschild Suma. [address] [place] [address], [address], [place], [address], [place]. tel:[phone], [place], [place], [address], [place] tel:[phone] [place] No Information Nov-2 0-201 7 Alfa Khalil. . [facility], [address] [facility], [place], [place], [address], [place] tel:[phone] [place] No Information Nov-1 5-201 7 Hauschild Suma. [address] [place] [address], [address], [place], [address], [place]. tel:[phone] [facility], [address], [place], [place], [address], [place] tel:[phone] [place] No Information Nov-1 3-201 7 Hauschild Suma. [address] [place] [address], [address], [place], [address], [place]. tel:[phone] [facility] [address], [place], [place], [address], [place] tel:[phone] [place] No Information Nov-1 0-201 7 Hauschild Suma. [address] [place] [address], [address], [place], [address], [place]. tel:[phone] [facility], [facility] [address], [place], [place], [address], [place] tel:[phone] [place] Effusion, left handPain in left forearmComplex regional pain syndrome I of left upper limb Nov-0 6-201 7 Hauschild Suma. [address] [place] [address], [address], [place], [address], [place]. tel:[phone] [facility] [address], [place], [place], [address], [place] tel:[phone] [place] No Information Dec-2 3-201 7 Hauschild Suma. [address] [place] [address], [address], [place], [address], [place]. tel:[phone] [facility] [address], [place], [place], [address], [place] tel:[phone] [place] No Information Oct-2 0-201 7 Hauschild Suma. [address] [place] [address], [address], [place], [address], [place]. tel:[phone] [facility] [address], [place], [place], [address], [place] tel:[phone] [place] No Information Dec-1 6-201 7 Hauschild Suma. [address] [place] [address], [address], [place], [address], [place]. tel:[phone], [place], [place], [address], [place] tel:[phone] [place] No Information Oct-1 3-201 7 Hauschild Suma. [address] [place] [address], [address], [place], [address], [place]. tel:[phone], [place], [place], [address], [place] tel:[phone] [place] No Information Oct-0 9-201 7 Hauschild Suma. [address] [place] [address], [address], [place], [address], [place]. tel:[phone] [address], [place], [place], [address], [place] tel:[phone] [place] No Information Oct-0 6-201 7 Hauschild Suma. [address] [place] [address], [address], [place], [address], [place]. tel:[phone] [address], [place], [place], [address], [place] tel:[phone] [place] No Information Oct-0 2-201 7 Hauschild Suma. [address] [place] [address], [address], [place], [address], [place]. tel:[phone], [place], [place], [address], [place] tel:[phone] [place] No Information Sep-2 9-201 7 Hauschild Suma. [address] [place] [address], [address], [place], [address], [place]. tel:[phone], [place], [place], [address], [place] tel:[phone] [place] No Information Sep-2 7-201 7 Hauschild Suma. [address] [place] [address], [address], [place], [address], [place]. tel:[phone], [place], [place], [address], [place] tel:[phone] [place] No Information Sep-2 2-201 7 Hauschild Suma. [address] [place] [address], [address], [place], [address], [place]. tel:[phone] [facility], [address] [place] [address] [address], [place], [place], [address], [place] tel:[phone] [place] No Information Sep-1 8-201 7 Hauschild Suma. [address] [place] [address], [address], [place], [address], [place]. tel:[phone] [address], [place], [place], [address], [place] tel:[phone] [place] No Information Sep-1 5-201 7 Hauschild Suma. [address] [place] [address], [address], [place], [address], [place]. tel:[phone] [address], [place], [place], [address], [place] tel:[phone] [place] No Information Sep-1 3-201 7 Hauschild Suma. [address] [place] [address], [address], [place], [address], [place]. tel:[phone], [place], [place], [address], [place] tel:[phone] [place] No Information Sep-0 8-201 7 Hauschild Suma. [address] [place] [address], [address], [place], [address], [place]. tel:[phone], [place], [place], [address], [place] tel:[phone] [place] No Information Sep-0 5-201 7 Hauschild Suma. [address] [place] [address], [address], [place], [facility], . tel:[phone] [facility] [facility], [place], [place], [address], [place] tel:[phone] [place] No Information 7 Claudette Ratliff. . [facility] [facility], [place], [place], [address], [place] tel:[phone] [place] Stiffness of left hand, not elsewhere classifiedStiff ness of left wrist, not elsewhere classifiedEnthe sopathy, unspecifiedPain in left handOth symptoms and signs involving the musculoskeletal systemOther specified health statusLaceratio n without foreign body of left hand, subs encntr 7 Vero Zamudio. [address] [place] [address], [address], [place], [facility], . tel:[phone] [facility] [facility] 300, [place], [place], [address], tel:[phone] [place] No Information 7 Giselleopalkerry JohnsonSuma. [address] [place] [address], [address], [place], [facility], . tel:[phone] [facility] [place] [address], [place], [place], [address], tel:[phone] [place] No Information 7 Priyanka Moise. [address] [place] [address], [address], [place], [facility], . tel:[phone] [facility] [facility], [place], [address], [place] tel:[phone] [place] Spinal stenosis, cervical regionOther biomechanical lesions of cervical regionCervicalg iaPain in right upper arm 6 [place], [place]. [facility], [place], [place], [address], tel:[phone] [place] No Information 4 Aicha Rutherford. [address] [facility], [address], [place], [address], [place]. tel:[phone] Referring Provider: Wilbert Badillo, [address] [facility] [address], [place], [address]. tel:[phone] [facility], [address] [place] [address], [place], [place], [address], [place] tel:[phone] [place] No Information 4 Priyanka Moise. [address] [place] [address], [address], [place], [address], [place]. tel:[phone] Referring Provider: Wilbert Badillo, [address] [facility] [address], [place], [address]. tel:[phone], [id number], [place] tel:[phone] [place] No Information 3 Priyanka Moise. [address] [place] [address], [address], [place], [address], [place]. tel:[phone] Referring Provider: Wilbert Badillo, [address] [facility] [address], [place], [address]. tel:[phone] [address] [address], [place], [place], [address], [place] tel:[phone] [place] No Information 3 Tara Vannessa. [address] [place] [address], [address], [place], [address], [place]. tel:[phone] Referring Provider: Wilbert Badillo, [address] [facility] [address], [place], [address]. tel:[phone] [facility], [address] [place] [address], [place], [place], [address], [place] tel:[phone] [place] Pain in joint involving hand 3 Justino Raines. [address] [facility], [address], [place], [address], [place]. tel:[phone] Referring Provider: Wilbert Badillo, [address] [facility] [address], [place], [address]. tel:[phone] Family History Family Member Type Diagnosis Age At Onset No Information Payers Payer name Insurance type Covered democrat ID Authoriza tion(s) [employer] EPO [facility] [id number] Social History Type Description Quantity Date Captured Comments Sex Male Smoking Status No Information Chief Complaint And Reason For Visit No Information Reason For Referral Reason For Referral No Information History Of Present Illness Encounter Date Complaint History Of Prese nt Illness No Information Functional Status Date Functional Assessmen t No Information Instructions Date Instruction Additional Infor mation No Information Assessments Type Assessment Date No Information Patient Care Teams Name Effective Dates (start - stop) Status Members No Information
--- OUTSIDE RECORDS SUMMARY | 2024-06-16 16:44 | XMS_ITS | CONTINUITY OF CARE DOCUMENT ---
Author Name heri wayneaddison Address Unknown Organization [facility] Address [address] [place] [address] Phone [phone] Care Team Providers Care Electrolysis Operator Name Role Phone Sudeep Guzman MD Unavailable ELISHA LEAHY MD Unavailable [phone] ELISHA LEAHY MD Unavailable PROBLEMS Condition Status [...] Payer name Policy type / Coverage type [place] red [employer] party ID [facility] [id number] HISTORY OF PROCEDURES Procedure Date Procedure Name Provider Procedure Notes S tatus Stress EKG Mayo Dumont MD completed Cardiolite, 2 units Berto Nunes MD completed SPECT Images Juliana Milner MD complet ed
--- OUTSIDE RECORDS SUMMARY | 2024-06-16 16:44 | XMS_ITS | Encounter Summary ---
Author Organization [facility] Address [address] [place] [address] Phone Care Team Providers Care Tin Plater Name Role Phone Kymberly Arauz NP Primary Care Provider [phone] Ayad Lambert MD Primary Care Provider Kymberly Arauz NP Primary Care Provider [phone] Encounter Details Date Type Department Care Team (Late st Contact Info) Description 05/08/2022 Telephone [facility] Cardiology [address] 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
--- OUTSIDE RECORDS SUMMARY | 2024-06-16 16:44 | XMS_ITS | Clinical Summary ---
Author Organization [facility] Address [address] [place] [address] Care Team Providers Care Director Of Architecture Name Role Phone Kymberly Arauz NP Primary Care Provider [phone] Allergies Active Allergy Reactions Criticality Noted Date [...] (06/11/2018): Added automatically from request for surgery [id number] Abnormal stress test 04/19/2018 Overview (04/19/2018): Added automatically from request for surgery [id number] Bilateral plantar fasciitis 12/22/20170 08/2022 Diastolic heart [...] Department Care Team Description 05/05/2024 3:15 PM SILK SCREEN PRINTER Ancillary Procedure [facility] Vascular Lab at the [facility] Medicine [address] [facility] 8th [place] [address] [place] [address] Iliac artery stenosis, right; Iliac artery aneurysm 04/26/2024 Telephone [facility] Surgery [address] [facility] Floor 1 [place] [address] Maggie Moore MD 04/06/2024 Telephone [facility] Cardiology [address] [facility] 8th [place] [address] [place] [address] Jeferson Macias MD from Last 3 Months [...] on file Legal Sex Male 2:38 AM SILK SCREEN PRINTER Gender Identity Not on file Sexual Orientation Not on file Obstetrics History Last Filed Vital Signs Vital Sign Reading Time Taken Comments Blood Pressure 144/91 01/27/2024 12:57 PM SILK SCREEN PRINTER Pulse 74 01/27/2024 12:57 PM SILK SCREEN PRINTER Temperature 36.2 C (97.1 F) 01/27/2024 12:57 PM SILK SCREEN PRINTER Respiratory Rate 16 12/08/2023 10:45 AM CDT Oxygen Saturation 98% 01/27/2024 12:57 PM SILK SCREEN PRINTER Inhaled Oxygen Concentration - - Weight 109.3 kg (241 lb) 01/27/2024 12:57 PM SILK SCREEN PRINTER Height 177.8 cm (5' 10 ) 01/27/2024 12:57 PM SILK SCREEN PRINTER Body Mass Index 34.58 01/27/2024 12:57 PM SILK SCREEN PRINTER Plan of Treatment Health Maintenance Due Date [...] 5 season) 2023 08/16/2020, 07/26/2020 Influenza Vaccine (Season Ended) 2024 Fall Risk Assessment 12/07/2024 12/08/2023 Colon Cancer Screening-Colonoscopy 12/07/20332023 Colon Cancer Screening-CT Colonography Discontinued 12/08/2023 Colon Cancer Screening-DNA Stool Discontinued 12/08/19 Colon Cancer Screening-FIT Discontinued 12/08/2023 Colon Cancer Screening-Sigmoidoscopy Discontinued 03/2023 Abdominal Aortic Aneurysm (A AA) Screen Completed 02/16/2024, 01/19/2015, 07/05/2014 Medical Devices Implanted Type Area Board Runner Device Identifier Shelf Expiration Date Model / Serial / Lot [employer] [id number] Synergy 3mm 28mm 144cm Radiopaque 1 Access Port Inflation Lumen - [id number] Implanted:Qty: 1 on 06/24/2018 by Aiden Toussaint MD at [facility] [employer] 04/04/2020 [id number] / / [id number] Procedures Procedure Name Priority Date/Time Associated Diagnosis Comments US ARTERIAL DOPPLER LOWER EXTREMITY BILATERAL Schedule Routine, Read Routine (OP Routine) 05/05/2024 3:50 PM SILK SCREEN PRINTER Iliac artery stenosis, right Iliac artery aneurysm CTA ABDOMINAL AORTA AND BILATERAL ILIOFEMORAL RUNOFF Schedule Routine, Read Routine (OP Routine) 02/16/2024 9:02 AM SILK SCREEN PRINTER Aneurysm of common iliac artery COLONOSCOPY 12/08/2023 9:55 AM CDT from Last 3 Months or Most Recently Relevant to Health Maintenance Results * US Arterial Doppler Lower Extremity Bilateral (05/05/2024 3:50 PM SILK SCREEN PRINTER) Anatomical Region Laterality Modality Vascular Bilateral Ultrasound 05/05/2024 3:28 PM SILK SCREEN PRINTER Narrative 05/05/2024 5:50 PM SILK SCREEN PRINTER [facility] - Department of Vascular Surgery, Vascular Laboratory [address] [place] [id number] Lower Extremity Arterial Doppler Report Patient Name: DEONTE FLOYD : 1955 Study Date: 05/05/2024 3:28:00 PM Gender: M Tech: Gela Montague RVT Location: [facility] Provider: MAGGIE MOORE Quality: Adequate Order Provider: MAGGIE MOORE PROCEDURES: Arterial Report: Bilateral lower extremity arterial Doppler exam at rest. 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 MEASUREMENTS: Right Value Units Left Value Units Rt Brachial Pressure 127 mmHg Lt Brachial Pressure 136 mmHg Rt FINISHER SCREWDOWN Pressure 135 mmHg Lt FINISHER SCREWDOWN Pressure 133 mmHg Rt DPA Pressure 124 mmHg Lt DPA Pressure 149 mmHg Rt 1st Digit Pressure 116 mmHg Lt 1st Digit Pressure 115 mmHg Rt PT CAM Resting 0.99 Lt PT CAM Resting 0.98 Rt AT CAM Resting 0.91 Lt AT CAM Resting 1.1 Rt Digit/Arm Index 0.85 Lt Digit/Arm Index 0.85 Right Value Units Left Value Units FINDINGS: Performing Suede Cleaner: Yolie Montague RVT. Bilateral All Levels : [...] Erick Vega MD FACS 05/05/2024 4:57:07 PM SILK SCREEN PRINTER Procedure Note Erick Vega MD - 05/05/2024 [facility] - Department of Vascular Surgery,Vascular Laboratory [address] [place] [address] Lower Extremity Arterial Doppler Report Patient Name: DEONTE FLOYD : 1955 Study Date: 05/05/2024 3:28:00 PM Gender: M Tech: Gela Montague [facility] Location: [facility] Ref Provider: MAGGIE MOORE Quality: Adequate Order Provider: MAGGIE MOORE PROCEDURES: Arterial Report: Bilateral lower extremity arterial Doppler exam at rest. 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 MEASUREMENTS: Right Value Units Left Value Units Rt Brachial Pressure 127 mmHg Lt Brachial Pressure 136 mmHg Rt FINISHER SCREWDOWN Pressure 135 mmHg Lt FINISHER SCREWDOWN Pressure 133 mmHg Rt DPA Pressure 124 mmHg Lt DPA Pressure 149 mmHg Rt 1st Digit Pressure 116 mmHg Lt 1st Digit Pressure 115 mmHg Rt PT CAM Resting 0.99 Lt PT CAM Resting 0.98 Rt AT CAM Resting 0.91 Lt AT CAM Resting 1.1 Rt Digit/Arm Index 0.85 Lt Digit/Arm Index 0.85 Right Value Units Left Value Units FINDINGS: Performing Suede Cleaner: Yolie Montague RVT. Bilateral All Levels : [...] Erick Vega MD FACS 05/05/2024 4:57:07 PM SILK SCREEN PRINTER Maggie Moore MD [facility] US PROCEDURES Final Re sult * CTA Abdominal Aorta And Bilateral Iliofemoral Runoff (02/16/2024 9:02 AM SILK SCREEN PRINTER) Anatomical Region Laterality Modality Body Bilateral Computed Tomogra phy 02/16/2024 11:1 7 AM SILK SCREEN PRINTER Impressions 02/16/2024 12:29 PM SILK SCREEN PRINTER 1. Right lower extremity: Severe focal stenosis [...] Zackary Lee M.D. Narrative 02/16/2024 12:29 PM SILK SCREEN PRINTER EXAMINATION: CT ANGIOGRAPHY OF THE ABDOMEN, PELVIS, [...] Male Attending MD: Freddie Reed M.D. Room: [facility] ENDOSCOPY ROOM 01 Note Status: Finalized [...] The scope was passed under direct vision.The [id number] was introduced through the anusand advanced to [...] Most Recently Relevant to Health Maintenance Insurance [facility] ACCESS [facility] MEDICARE [facility] Address: [address] [place] [address] [facility] MEDICARE ADVANTAGE [facility] Address: [address] [address] [place] [address] Advance Directives For more information, please contact: [phone] * Full Code (Latest Code Status on File) Date Activated Date Inactivated Comments 12/08/2023 8:42 AM 12/08/2023 3:07 PM * Full Code Date Activated Date Inactivated Comments 11/25/2023 8:38 AM 11/26/2023 5:15 AM * Full Code Date Activated Date Inactivated Comments 06/24/2018 10:35 AM 06/24/2018 6:55 PM Care Teams Director Of Architecture Relationship Specialty Start Date End Date Kymberly Arauz NP [address] [place] [address] PCP - General Nurse Practitioner 07/27/23
--- OUTSIDE RECORDS SUMMARY | 2024-06-16 16:44 | XMS_ITS | Referral Summary ---
Author Organization [facility] Address [address] [place] [address] Care Team Providers Care Electrical Mechanic Name Role Phone Kymberly Arauz NP Primary Care Provider [phone] Encounters Date Type Department Care Team Description 05/05/2024 3:15 PM BODY MECHANIC APPRENTICE Ancillary Procedure [facility] Vascular Lab at the [facility] Advanced Medicine [address] [facility] 8th [place] [address] [place] [address] Iliac artery stenosis, right; Iliac artery aneurysm 04/26/2024 Telephone [facility] Surgery [address] [facility] Floor 1 [place] [address] Maggie Moore MD 04/06/2024 Telephone [facility] Cardiology [address] [facility] 8th [place] [address] [place] [address] Jeferson Macias MD from Last 3 Months [...] (06/11/2018): Added automatically from request for surgery [id number] Abnormal stress test 04/19/2018 Overview (04/19/2018): Added automatically from request for surgery [id number] Bilateral plantar fasciitis 12/22/201708/2022 Diastolic heart failure [...] on file Legal Sex Male 2:38 AM BODY MECHANIC APPRENTICE Gender Identity Not on file Sexual Orientation Not on file Last Filed Vital Signs Vital Sign Reading Time Taken Comments Blood Pressure 144/91 01/27/2024 12:57 PM BODY MECHANIC APPRENTICE Pulse 74 01/27/2024 12:57 PM BODY MECHANIC APPRENTICE Temperature 36.2 C (97.1 F) 01/27/2024 12:57 PM BODY MECHANIC APPRENTICE Respiratory Rate 16 12/08/2023 10:45 AM CDT Oxygen Saturation 98% 01/27/2024 12:57 PM BODY MECHANIC APPRENTICE Inhaled Oxygen Concentration - - Weight 109.3 kg (241 lb) 01/27/2024 12:57 PM BODY MECHANIC APPRENTICE Height 177.8 cm (5' 10 ) 01/27/2024 12:57 PM BODY MECHANIC APPRENTICE Body Mass Index 34.58 01/27/2024 12:57 PM BODY MECHANIC APPRENTICE Plan of Treatment Not on file Medical Devices Implanted Type Area Threading Machine Operator Device Identifier Shelf Expiration Date Model / Serial / Lot [employer] [id number] Synergy 3mm 28mm 144cm Radiopaque 1 Access Port Inflation Lumen - [id number] Implanted:Qty: 1 on 06/24/2018 by Aiden Toussaint MD at [facility] [employer] 04/04/2020 [id number] / / [id number] Procedures Procedure Name Priority Date/Time Associated Diagnosis Comments US ARTERIAL DOPPLER LOWER EXTREMITY BILATERAL Schedule Routine, Read Routine (OP Routine) 05/05/2024 3:50 PM BODY MECHANIC APPRENTICE Iliac artery stenosis, right Iliac artery aneurysm CTA ABDOMINAL AORTA AND BILATERAL ILIOFEMORAL RUNOFF Schedule Routine, Read Routine (OP Routine) 02/16/2024 9:02 AM BODY MECHANIC APPRENTICE Aneurysm of common iliac artery COLONOSCOPY 12/08/2023 9:55 AM CDT from Last 3 Months or Most Recently Relevant to Health Maintenance Results * US Arterial Doppler Lower Extremity Bilateral (05/05/2024 3:50 PM BODY MECHANIC APPRENTICE) Anatomical Region Laterality Modality Vascular Bilateral Ultrasound 05/05/2024 3:28 PM BODY MECHANIC APPRENTICE Narrative 05/05/2024 5:50 PM BODY MECHANIC APPRENTICE [facility] - Department of Vascular Surgery, Vascular Laboratory [address] [place] [address] Lower Extremity Arterial Doppler Report Patient Name: DEONTE FLOYD : 1955 Study Date: 05/05/2024 3:28:00 PM Gender: M Tech: Gela Montague RVT Location: [facility] Provider: MAGGIE MOORE Quality: Adequate Order Provider: MAGGIE MOORE PROCEDURES: Arterial Report: Bilateral lower extremity arterial Doppler exam at rest. 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 MEASUREMENTS: Right Value Units Left Value Units Rt Brachial Pressure 127 mmHg Lt Brachial Pressure 136 mmHg Rt SURGERY CENTER ADMINISTRATOR Pressure 135 mmHg Lt SURGERY CENTER ADMINISTRATOR Pressure 133 mmHg Rt DPA Pressure 124 mmHg Lt DPA Pressure 149 mmHg Rt 1st Digit Pressure 116 mmHg Lt 1st Digit Pressure 115 mmHg Rt PT CAM Resting 0.99 Lt PT CAM Resting 0.98 Rt AT CAM Resting 0.91 Lt AT CMA Resting 1.1 Rt Digit/Arm Index 0.85 Lt Digit/Arm Index 0.85 Right Value Units Left Value Units FINDINGS: Performing Overhead Door Technician: Yolie Montague RVT. Bilateral All Levels : [...] Erick Vega MD FACS 05/05/2024 4:57:07 PM BODY MECHANIC APPRENTICE Procedure Note Erick Vega MD - 05/05/2024 [facility] - Department of Vascular Surgery,Vascular Laboratory [address] [place] [address] Lower Extremity Arterial Doppler Report Patient Name: DEONTE FLOYD : 1955 Study Date: 05/05/2024 3:28:00 PM Gender: M Tech: Gela Montague [facility] Location: [facility] Provider: MAGGIE MOORE Quality: Adequate Order Provider: MAGGIE MOORE PROCEDURES: Arterial Report: Bilateral lower extremity arterial Doppler exam at rest. 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 MEASUREMENTS: Right Value Units Left Value Units Rt Brachial Pressure 127 mmHg Lt Brachial Pressure 136 mmHg Rt SURGERY CENTER ADMINISTRATOR Pressure 135 mmHg Lt SURGERY CENTER ADMINISTRATOR Pressure 133 mmHg Rt DPA Pressure 124 mmHg Lt DPA Pressure 149 mmHg Rt 1st Digit Pressure 116 mmHg Lt 1st Digit Pressure 115 mmHg Rt PT CAM Resting 0.99 Lt PT CAM Resting 0.98 Rt AT CAM Resting 0.91 Lt AT CAM Resting 1.1 Rt Digit/Arm Index 0.85 Lt Digit/Arm Index 0.85 Right Value Units Left Value Units FINDINGS: Performing Overhead Door Technician: Yolie Montague RVT. Bilateral All Levels : [...] above. Electronically Signed By: Erick Vega MD [facility] 05/05/2024 4:57:07 PM BODY MECHANIC APPRENTICE Maggie Moore MD IMG US PROCEDURES Final Re sult * CTA Abdominal Aorta And Bilateral Iliofemoral Runoff (02/16/2024 9:02 AM BODY MECHANIC APPRENTICE) Anatomical Region Laterality Modality Body Bilateral Computed Tomogra phy 02/16/2024 11:1 7 AM BODY MECHANIC APPRENTICE Impressions 02/16/2024 12:29 PM BODY MECHANIC APPRENTICE 1. Right lower extremity: Severe focal stenosis [...] Zackary Lee M.D. Narrative 02/16/2024 12:29 PM BODY MECHANIC APPRENTICE EXAMINATION: CT ANGIOGRAPHY OF THE ABDOMEN, PELVIS, [...] Male Attending MD: Freddie Reed M.D. Room: [facility] ENDOSCOPY ROOM 01 Note Status: Finalized [...] The scope was passed under direct vision.The [id number] was introduced through the anusand advanced to [...] Most Recently Relevant to Health Maintenance Insurance [facility] MEDICARE ADVANTAGE Advance Directives For more information, please contact: [phone] * Full Code (Latest Code Status on File) Date Activated Date Inactivated Comments 12/08/2023 8:42 AM 12/08/2023 3:07 PM * Full Code Date Activated Date Inactivated Comments 11/25/2023 8:38 AM 11/26/2023 5:15 AM * Full Code Date Activated Date Inactivated Comments 06/24/2018 10:35 AM 06/24/2018 6:55 PM Care Teams Electrical Mechanic Relationship Specialty Start Date End Date Kymberly Arauz NP [address] [place] [address] PCP - General Nurse Practitioner 07/27/23
--- OUTSIDE RECORDS SUMMARY | 2024-06-16 16:44 | XMS_ITS | Clinical Summary ---
Author Organization [facility] Address [address] [place] [address] Phone Care Team Providers Care Paint Factory Worker Name Role Phone Kymberly Arauz BETTY Primary Care Provider [phone] Allergies Active Allergy Reactions Criticality Noted Date [...] on file Legal Sex Male 9:39 AM RING FACER Gender Identity Not on file Sexual Orientation Not on file Last Filed Vital Signs Vital Sign Reading Time Taken Comments Blood Pressure 150/92 03/23/2020 9:06 AM RING FACER Pulse 58 03/23/2020 9:06 AM RING FACER Temperature 36.6 C (97.9 F) 03/23/2020 9:06 AM RING FACER Respiratory Rate - - Oxygen Saturation - - Inhaled Oxygen Concentration - - Weight 111.1 kg (245 lb) 03/23/2020 9:06 AM RING FACER Height 177.8 cm (5' 10 ) 03/23/2020 9:06 AM RING FACER Body Mass Index 35.15 03/23/2020 9:06 AM RING FACER Plan of Treatment Health Maintenance Due Date [...] BCBS BLUE ACCESS/TRUE BLUE PPO Care Teams Paint Factory Worker Relationship Specialty Start Date End Date Kymberly Arauz ANP [address] [address] PCP - General Nurse Practitioner Adult Health 03/23/20
--- OUTSIDE RECORDS SUMMARY | 2024-06-16 16:44 | XMS_ITS | Encounter Summary ---
Author Organization [facility] [place] [facility] Address [address] [place] [address] Phone Care Team Providers Care Metal Flooring Installer Name Role Phone BernarddreaKymberly NP Primary Care Provider [phone] Encounter Details Date Type Department Care Team (Late st Contact Info) Description 03/16/2024 Telephone [facility] Cardiology [address] [facility] 8th [place] [address] [place] [address] Jeferson Macias MD [address] [facility] [address] [place] [address] [place] [address] Social History Tobacco Use Types [...] on file Legal Sex Male 2:38 AM NEEDLE FELT MAKING MACHINE OPERATOR Gender Identity Not on file Sexual Orientation Not on file documented as of this encounter Plan of Treatment Not on file documented as of this encounter Visit Diagnoses Not on filedocumented in this encounter Care Teams Metal Flooring Installer Relationship Specialty Start Date End Date Kymberly Arauz NP [address] [place] [address] PCP - General Nurse Practitioner 07/27/23 documented as of this encounter
--- OUTSIDE RECORDS SUMMARY | 2024-06-16 16:44 | XMS_ITS | Encounter Summary ---
Author Organization [facility] Address [address] [place] [address] Phone Care Team Providers Care Serging Machine Operator Automatic Name Role Phone Kymberly Arauz NP Primary Care Provider [phone] Ayad Lambert MD Primary Care Provider [phone] Kymberly Arauz NP Primary Care Provider [phone] Encounter Details Date Type Department Care Team (Latest Contact Info) Description 12/19/2021 Orders Only [facility] Annabel Gonzáles, [place] [address] [facility] [address] [place] [address] Social History Tobacco Use Types Packs/Day Years Used Date Smoking Tobacco: Former Cigarettes 1 28 0 05/06/1971 - 05/06/1999 Smokeless Tobacco: Never Alcohol Use Standard Drinks/Week Comments Defer 0 (1 standard drink = 0.6 oz pur e alcohol) Sex and Gender Information Value Date Recorded Sex Assigned at Not on file Legal Sex Male 2:38 AM CARPENTER ROUGH Gender Identity Not on file Sexual Orientation [...] on filedocumented in this encounter Care Teams Serging Machine Operator Automatic Relationship Specialty Start Date End Date Kymberly Arauz NP PCP - General 01/09/17 07/06/22 Ayad Lambert MD [address] [facility] [place] [address] PCP - General Family Medicine 07/07/22 07/26/23 Kymberly Arauz NP [address] [place] [address] PCP - General Nurse Practitioner 07/27/23 documented as of this encounter
--- OUTSIDE RECORDS SUMMARY | 2024-06-16 16:44 | XMS_ITS | Encounter Summary ---
Author Organization [facility] Address [address] [place] [address] Care Team Providers Care Work Order Sorting Clerk Name Role Phone Nay Verduzco MD Primary Care Provider Encounter Details Date Type Department Care Team (Late st Contact Info) Description 10/29/2023 Lab Requisition [facility] - Pathology Lab [address] [place] [id number] Christos Agee MD [address] [facility] [address] [place] [id number] Unspecified abdominal pain; Essential (primary) hypertension [...] AM CDT) Case Report Flow Cytometry Case: [id number] Authorizing Provider: Christos Agee Collected: 10/29/2023 11:58 AM MD Xu Ordering Location: [facility] - Received: 10/29/2023 04:03 PM Pathology Lab Pathologist: Annabel Kerr MD Specimen: Abdomen, Lymphnode 10/29/2023 5:01 PM [facility] Final Diagnosis Mesenteric mass, flow cytometric immunophenotypic analysis: - Insufficient hematopoietic cells for analysis - See interpretation 10/29/2023 5:01 PM [facility] Flow Cytometry Interpretation Preliminary characterization of the mesenteric mass specimen demonstrates too few hematopoietic cells for flow cytometric analysis. A cytospin prepared from the flow cytometry specimen is reviewed for coding quality coordinator purposes. Scattered erythrocytes and debris are seen. Flow cytometry is not performed. 10/29/2023 5:01 PM [facility] Flow Cytometry Results Too few hematopoietic cells for flow cytometric analysis. 10/29/2023 5:01 PM [facility] Reason for test Unspecified abdominal pain Essential (primary) hypertension 401.9 10/29/2023 5:01 PM [facility] Client Specimen ID # [id number] 10/29/2023 5:01 PM [facility] Pathologist Location at [facility] 10/29/2023 5:01 PM [facility] Disclaimer Test performed at [facility], [address] [place] [address], [id number]. *The established laboratory minimum viability is 70%. [...] high complexity clinical testing. 10/29/2023 5:01 PM [facility] Embedded Images 5:01 PM [facility] Pathology/Cytolo gy ABDOMEN AND PELVIS / Unknown 10/29/2023 11:58 AM CDT 10/29/2023 4:03 PM CDT Christos Agee MD LAB - PATHO LOGY/CYTOLOGY ORDERABLES [facility] [address] [facility]. [address] [phone] documented in this encounter Visit Diagnoses Diagnosis Unspecified abdominal pain Essential (primary) hypertension Unspecified essential hypertension documented in this encounter Care Teams Work Order Sorting Clerk Relationship Specialty Start Date End Date Nay Verduzco MD [address] [place] [id number] PCP - General 07/21/18 documented as of this encounter
--- NOTE | 2024-06-16 17:31 | ED.GENADULT ---
HPI - General Adult General Chief complaint: Unspecified Stated complaint: Swelling left side of face-Fever Time Seen by Provider: 06/16/24 16:32 History of Present Illness HPI narrative: 68-year-old male history of hypertension, CAD presents to the emergency department for left-sided facial redness and swelling since this morning. Patient states 4 days ago he began developing bilateral ear pain. States he woke up this morning with a fever 101, redness and swelling to the left side of his face that it stands on his left ear is mandible and up into his left congregational. He reports area is tender to the touch. Took Tylenol at 11:30 a.m. with improvement. He is endorsing some pain to the left side of his throat when swallowing but denies difficulty swallowing, drooling, difficulty breathing. Related Data Home Medications ?Medication ?Instructions ?Recorded ?Confirmed ?Last Taken ?Type aspirin 81 mg tablet,delayed 81 mg PO DAILY 04/13/23 06/16/24 7 Days Ago History release ~10/22/23 lisinopril 40 mg tablet 40 mg PO DAILY 04/13/23 06/16/24 10/29/23 History metoprolol succinate 25 mg 12.5 mg PO DAILY 07/13/23 06/16/24 10/29/23 History tablet,extended release 24 hr multivit,calcium,min-folic acid 1 tablet PO DAILY 07/13/23 06/16/24 07/17/23 History 240 mcg-D3 25 mcg-lycop 300 mcg tablet (One A Day Men Complete) ascorbic acid (vitamin C) 500 mg 500 mg PO DAILY 06/16/24 06/16/24 Unknown History chewable tablet (Acerola C) rosuvastatin 20 mg tablet 20 mg PO HS 06/16/24 06/16/24 Unknown History Allergies Allergy/AdvReac Type Severity Reaction Status Date / Time Penicillins Allergy Severe Anaphylactic Verified 06/16/24 15:07 Shock Review of Systems Review of Systems: All systems reviewed & are unremarkable except as noted in HPI and below PMFSH Past Medical History Medical History HTN (hypertension) CAD (coronary atherosclerotic disease) Surgical History Surgical History History of incisional hernia repair Lap incisional hernia rep w/ mesh, da carter asst performed 07/25/23 Family History Family History Father Family history of aortic aneurysm Mother Diabetes mellitus Heart disease Depression Cerebrovascular accident Hypertension Sibling Diabetes mellitus Hypertension Heart disease Other Acute myocardial infarction Family history of coronary artery disease Social History Social History Smoking packs per day: 1 Smoking cigarettes per day: 20.0 Years smoked: 30 Smoking pack-years: 30.00 Smoking status: Former smoker Tobacco type: cigarettes Smoking end date: 08/13/99 Alcohol intake: current Drinks per week: 14 Alcohol use details: BEER Substance use: never Substance use type: does not use Do You Feel Safe in your Home?: Yes Lack of Transportation: No Lack of Food: Never True Current Housing: I Have Housing Concerned About Future Housing: No Difficulty Paying Gas/Electric Bills: No Difficulty Paying for Meds: No Currently Unemployed: No Education: Associate Degree Difficulty w/ Childcare or Family Care: No Living arrangements: with family Occupation/Education: retired Gender identity (if verbalized by the patient): Male Spiritual care concerns: No Agree to blood products: Yes Exam Narrative: GENERAL: Well-appearing, well-nourished, and in no acute distress. HEAD: Normocephalic, atraumatic. EYES: PERRLA and EOMI. ENT: Nares clear, no rhinorrhea or epistaxis. Mucous membranes moist. Right TM is aguiar nonbulging with normal canals. Left TM is erythematous and bulging, normal canal. Edema to the auricle. Erythema, warmth and edema extending from the left congregational inferiorly overlying the preauricular region, left parotid gland and left submandibular gland with tenderness to palpation. No fluctuance. Posterior pharynx is unremarkable with no edema, tonsillar hypertrophy or uvular deviation. Patient is tolerating his secretions. No airway compromise. No cellulitic changes involving the orbits, no periorbital edema. NECK: Supple. No nuchal rigidity. CHEST: Clear to auscultation. No respiratory distress. HEART: Regular rate and rhythm. No murmur heard. Normal peripheral pulses. EXTREMITIES: Normal range of motion. No edema. SKIN: Warm, dry, no rash. NEURO: No focal deficits. Alert and oriented x3 Course Vital Signs Vital signs: Vital Signs Temperature 98.8 F 06/16/24 15:17 Pulse Rate 113 H 06/16/24 15:17 Respiratory Rate 16 06/16/24 15:17 Blood Pressure 149/75 H 06/16/24 15:17 Pulse Oximetry 98 06/16/24 15:17 Oxygen Delivery Room Air 06/16/24 15:17 Temperature 99.1 F 06/16/24 22:00 Pulse Rate 78 06/16/24 22:00 Respiratory Rate 18 06/16/24 22:00 Blood Pressure 142/88 H 06/16/24 22:00 Pulse Oximetry 98 06/16/24 22:00 Oxygen Delivery Room Air 06/16/24 22:26 Medical Decision Making MDM Narrative Medical decision making narrative: 68-year-old male with history of CAD and hypertension presents to emergency department for otalgia for the past 4 days, woke up this morning with left-sided facial redness, warmth, tenderness and fever. Triage vitals with tachycardia 113 which has since improved to 102. Patient is afebrile and nontoxic appearing. Patient does have cellulitic changes to the left side of the face is noted on exam above with findings concerning for left-sided AOM. No airway compromise. CBC with leukocytosis of 12: Mild thrombocytopenia with platelets of 142. Chemistries are unremarkable. Lactic is normal at 1.5. CT facial bones shows no facial fracture, there is bilateral maxillary sinusitis. I did confirm with radiologist on-call, Dr. Dunn, CT findings. He does not note any findings concerning for parotiditis or submandibular gland involvement, he does note fat stranding to the subcutaneous space which may be consistent with cellulitis. Patient family updated on results. Patient did spike a temperature to 100.6 F and was given Tylenol. Discussed with hospitalist, Dr. Law, who agrees to admission advises consult to ENT. Discussed with ENT, Dr. Chavez, who advises there is a drainable abscess or intervention required bites consult and a plan should be to continue IV antibiotics, he defers to hospitalist for treatment and antibiotic choice. Discussed antibiotic choices with Dr. Law and we agreed to initiate vancomycin, Levaquin and Flagyl to include broad coverage for AOM, sinusitis, facial cellulitis.. The patient does meet sepsis criteria and was given 2L of fluids in the ED. He does meet sepsis criteria at this time and was started on IV fluids with improvement. Vital Signs Vital Signs: Vital Signs Temperature 98.8 F 06/16/24 15:17 Pulse Rate 113 H 06/16/24 15:17 Respiratory Rate 16 06/16/24 15:17 Blood Pressure 149/75 H 06/16/24 15:17 Pulse Oximetry 98 06/16/24 15:17 Oxygen Delivery Room Air 06/16/24 15:17 Temperature 99.1 F 06/16/24 22:00 Pulse Rate 78 06/16/24 22:00 Respiratory Rate 18 06/16/24 22:00 Blood Pressure 142/88 H 06/16/24 22:00 Pulse Oximetry 98 06/16/24 22:00 Oxygen Delivery Room Air 06/16/24 22:26 Lab Data 06/16/24 17:20 06/16/24 17:20 Labs: Lab Results 06/16/24 06/16/24 Range/Units 17:20 20:30 WBC 12.0 H (4.5-10.0) K/mm3 RBC 5.11 (4.6-6.20) M/mm3 Hgb 15.8 (14.0-18.0) g/dL Hct 48.1 (42.0-52.0) % MCV 94.1 (80-100) fl MCH 30.9 (26-34) pg MCHC 32.8 (32-36) g/dl RDW 12.3 (11.5-14.5) % Plt Count 142 L (150-375) k/mm3 MPV 10.6 H (7.4-10.4) fl Immature Gran % (Auto) 0.4 (0-0.5) % Neut % (Auto) 82.4 H (45.5-73.1) % Lymph % (Auto) 9.0 L (18.3-44.2) % [place] % (Auto) 7.6 (2.6-8.5) % Eos % (Auto) 0.3 (0-4.4) % Baso % (Auto) 0.3 (0.2-1.2) % Lymph # (Auto) 1.08 (0.9-3.2) K/mm3 [place] # (Auto) 0.9 H (0.1-0.6) K/mm3 Eos # (Auto) 0.0 (0-0.3) K/mm3 Baso # (Auto) 0.0 (0.0-0.1) K/mm3 Abs Immat Gran (auto) 0.05 H (0.00-0.031) K/mm3 Absolute Neuts (auto) 9.9 H (1.3-6.7) K/mm3 Absolute Nucleated RBC 0.000 (0.0-0.012) K/mm3 Nucleated RBC % 0.0 (0.0-0.2) % PT 14.6 (11.1-14.7) Seconds INR 1.1 APTT 30.5 (22.3-36.8) Seconds Sodium 139 (137-145) mmol/L Potassium 4.2 (3.4-5.0) mmol/L Chloride 101 (98-107) mmol/L Carbon Dioxide 26 (22-30) mmol/L Anion Gap 12 (4-12) mmol/L BUN 12 (9-20) mg/dL Creatinine 0.98 (0.7-1.3) mg/dL Estim Creat Clear Calc 107 ml/min Estimated GFR > 60 (59 - ) Glucose 100 (65-110) mg/dL Lactic Acid 1.5 (0.7-2.0) mmol/L Calcium 9.2 (8.4-10.2) mg/dL Total Bilirubin 0.8 (0.2-1.3) mg/dL AST 31 (17-59) U/L ALT 46 (6-50) U/L Alkaline Phosphatase 59 (38-126) U/L Total Protein 8.0 (6.3-8.2) g/dL Albumin 5.1 (3.5-5.1) g/dL Influenza A (RT-PCR) Negative (Negative) Influenza B (RT-PCR) Negative (Negative) RSV (RT-PCR) Negative (Negative) SARS-CoV-2 RNA (RT-PCR) Negative (Negative) Discharge Plan Discharge Clinical Impression: Cellulitis of face Sinusitis Qualifiers: Sinusitis location: maxillary Chronicity: acute Recurrence: not specified as recurrent Qualified Code(s): J01.00 - Acute maxillary sinusitis, unspecified Acute otitis media Qualifiers: Otitis media type: unspecified Qualified Code(s): H66.90 - Otitis media, unspecified, unspecified ear Sepsis Qualifiers: Sepsis type: sepsis due to unspecified organism Sepsis acute organ dysfunction status: unspecified Qualified Code(s): A41.9 - Sepsis, unspecified organism Patient Disposition: Still a Patient Condition: Stable
[2024-06-16 18:03] LABS: Basophils Percent Auto 0.3 % (0.2-1.2); Eosinophils Percent Auto 0.3 % (0-4.4); Hematocrit 48.1 % (42.0-52.0); Hemoglobin 15.8 g/dL (14.0-18.0); Immature Granulocyte Absolute 0.05 K/mm3 (0.00-0.031); Immature Granulocyte Percent A 0.4 % (0-0.5); Lymphocytes Absolute Auto 1.08 K/mm3 (0.9-3.2); Mean Corpuscular HGB Conc 32.8 g/dl (32-36); Mean Corpuscular Hemoglobin 30.9 pg (26-34); Mean Corpuscular Volume 94.1 fl (80-100); Mean Platelet Volume 10.6 fl (7.4-10.4); Monocytes Absolute Auto 0.9 K/mm3 (0.1-0.6); Monocytes Percent Auto 7.6 % (2.6-8.5); Neutrophils Absolute Auto 9.9 K/mm3 (1.3-6.7); Neutrophils Percent Auto 82.4 % (45.5-73.1); Platelet Count Result 142 k/mm3 (150-375); Red Blood Count 5.11 M/mm3 (4.6-6.20); Red Cell Distribution Width 12.3 % (11.5-14.5)
[2024-06-16 18:12] LABS: Lactic Acid Reflex 1.5 mmol/L (0.7-2.0)
[2024-06-16 18:13] LABS: Alanine Aminotransferase 46 U/L (6-50); Albumin Level 5.1 g/dL (3.5-5.1); Alkaline Phosphatase 59 U/L (38-126); Anion Gap 12 mmol/L (4-12); Aspartate Amino Transferase 31 U/L (17-59); Bilirubin,Total 0.8 mg/dL (0.2-1.3); Blood Urea Nitrogen 12 mg/dL (9-20); Calcium 9.2 mg/dL (8.4-10.2); Carbon Dioxide 26 mmol/L (22-30); Chloride 101 mmol/L (98-107); Estimated CRCL calculation 107 ml/min; Estimated Glomerular Filt Rate > 60; Glucose 100 mg/dL (65-110); Potassium 4.2 mmol/L (3.4-5.0); Sodium 139 mmol/L (137-145)
[2024-06-16 19:47] VITALS: BP 169/83; PULSE 102; RESP 20; TEMP 38.1; O2SAT 97
[2024-06-16] MEDS: ACETAMINOPHEN 500 MG TABLET 1000 MG PO (20:34)
[2024-06-16] MEDS: SODIUM CHLORIDE 0.9% IV 1,000 ML 999 ML IV CONT ×2 (20:34→20:42)
[2024-06-16 20:48] LABS: INR 1.1; Prothrombin Time 14.6 Seconds (11.1-14.7)
[2024-06-16 20:49] LABS: Partial Thromboplastin Time 30.5 Seconds (22.3-36.8)
[2024-06-16 21:14] LABS: Influenza A QL RT-PCR Negative (Negative); Influenza B QL RT-PCR Negative (Negative); RSV RNA, RT-PCR Negative (Negative); SARS-CoV-2 RNA PCR Negative (Negative)
[2024-06-16 21:50] VITALS: BMI 34.4
[2024-06-16 22:00] VITALS: BP 127/74; BP 142/88; PULSE 77; PULSE 78; RESP 18; RESP 20; TEMP 37.3; TEMP 37.5; O2SAT 97; O2SAT 98
[2024-06-16] MEDS: VANCOMYCIN 1,250 MG/NS 250 ML 1,250 MG/250 ML BAG 166.67 MG IVPB ×2 (22:02→23:37)
--- NOTE | 2024-06-16 22:19 | ADMGEN ---
This patient, Cong Floyd, was admitted to Medical Room 346-01. Patient/family oriented to hospital policies and general routines including ID bracelet, bed and alarms, visiting hours, pain management, procedures, bathroom and other care routines, personal items, smoking policy, room service/diet, and visiting hours. Information on how to activate the Rapid Response Team has been discussed. Patient/Family are encouraged to report perceived risks to care and to ask questions if they do not understand what they are told or what they should do.
[2024-06-16] MEDS: metroNIDAZOLE 500 MG/ISO 100ML 500 MG/100 ML BAG 100 MG IVPB (23:30)
[2024-06-16] MEDS: levoFLOXacin 750 MG/D5W 150 ML 750 MG/150 ML BAG 100 MG IVPB (23:30)
[2024-06-16] MEDS: SODIUM CHLORIDE 0.9% IV 1,000 ML 125 ML IV CONT (23:34)
--- NOTE | 2024-06-17 05:17 | P.HP_ITS ---
H&P: HPI History of Present Illness Date/Time: 06/17/24 05:17 Chief Complaint: 1. Left facial swelling 2. Left ear swelling Narrative: Cong Floyd is a 68-year-old male with a medical history significant for hyp ertension, dyslipidemia and obesity. By once 2 days ago he went to bed feeling in both ears with warm to touch with discomfort; with no modifying factors he retired to bed but woke up the next morning with a swollen left face is swollen left ear; this is associated with pain, malaise, subjective chills and rigors with anxiety. He denies preceding trauma, manipulation of the ears, itching or swimming in any body of water recently/prior to the onset of the symptoms. He does not smoke/chew tobacco, drink alcohol or consume recreational/illicit drugs. Work-up findings: WBC 12, HGB 15, MCV 94, PLT 142 INR 1.1, PT 14, APTT 30 Unremarkable CMP Influenza a/B, RSV, COVID-19: Negative CT face: No facial fracture. Bilateral maxillary sinusitis Cong Floyd will be admitted, evaluated, and managed for otitis externa with left sided facial cellulitis Review of Systems Review of Systems: All systems reviewed & are unremarkable except as noted in HPI and below PMFSH Past Medical History Medical History HTN (hypertension) CAD (coronary atherosclerotic disease) Surgical History Surgical History History of incisional hernia repair Lap incisional hernia rep w/ mesh, da carter asst performed 07/25/23 Family History Family History Father Family history of aortic aneurysm Mother Diabetes mellitus Heart disease Depression Cerebrovascular accident Hypertension Sibling Diabetes mellitus Hypertension Heart disease Other Acute myocardial infarction Family history of coronary artery disease Social History Social History Smoking packs per day: 1 Smoking cigarettes per day: 20.0 Years smoked: 30 Smoking pack-years: 30.00 Smoking status: Former smoker Tobacco type: cigarettes Smoking end date: 08/13/99 Alcohol intake: current Drinks per week: 14 Alcohol use details: BEER Substance use: never Substance use type: does not use Do You Feel Safe in your Home?: Yes Lack of Transportation: No Lack of Food: Never True Current Housing: I Have Housing Concerned About Future Housing: No Difficulty Paying Gas/Electric Bills: No Difficulty Paying for Meds: No Currently Unemployed: No Education: Associate Degree Difficulty w/ Childcare or Family Care: No Living arrangements: with family Occupation/Education: retired Gender identity (if verbalized by the patient): Male Spiritual care concerns: No Agree to blood products: Yes Meds Home Medications and Allergies Home Medications ?Medication ?Instructions ?Recorded ?Confirmed ?Type aspirin 81 mg tablet,delayed 81 mg PO DAILY 04/13/23 06/16/24 History release lisinopril 40 mg tablet 40 mg PO DAILY 04/13/23 06/16/24 History metoprolol succinate 25 mg 12.5 mg PO DAILY 07/13/23 06/16/24 History tablet,extended release 24 hr multivit,calcium,min-folic acid 1 tablet PO DAILY 07/13/23 06/16/24 History 240 mcg-D3 25 mcg-lycop 300 mcg tablet (One A Day Men Complete) ascorbic acid (vitamin C) 500 mg 500 mg PO DAILY 06/16/24 06/16/24 History chewable tablet (Acerola C) rosuvastatin 20 mg tablet 20 mg PO HS 06/16/24 06/16/24 History Allergies Allergy/AdvReac Type Severity Reaction Status Date / Time Penicillins Allergy Severe Anaphylactic Verified 06/16/24 15:07 Shock Vital Signs Vital Signs - 24 hr 06/16/24 15:17 06/16/24 15:34 06/16/24 19:47 Temperature 98.8 F 99.6 F 100.6 F H Pulse Rate 113 H 102 H 102 H Respiratory Rate 16 16 20 Blood Pressure 149/75 H 143/73 H 169/83 H Pulse Oximetry 98 97 97 Oxygen Delivery Room Air 06/16/24 22:00 06/16/24 22:00 06/16/24 22:26 Temperature 99.5 F 99.1 F Pulse Rate 77 78 Respiratory Rate 20 18 Blood Pressure 127/74 142/88 H Pulse Oximetry 97 98 Oxygen Delivery Room Air Exam Const: General: comfortable HENMT: Face/Nose/Sinus: Normal nares present Other: Erythematous left pinna; left facial swelling Eyes: Sclera: sclerae normal Pupils: Equal, round and reactive pupils present Neck: Neck: supple Resp: Effort & Inspection: normal respiratory effort Cardio: Rate: regular rate Rhythm: regular rhythm GI: Auscultation: normal bowel sounds Skin: General skin exam: erythema (Left face) Neuro: Speech: normal speech Motor exam (neuro): 5/5 motor strength present throughout Extrem: General: normal exam except as noted Psych: Mental Status: mental status grossly normal Affect: Anxious affect present H&P: Results Labs Labs: Short CBC 06/16/24 Range/Units 17:20 WBC 12.0 H (4.5-10.0) K/mm3 Hgb 15.8 (14.0-18.0) g/dL Hct 48.1 (42.0-52.0) % Plt Count 142 L (150-375) k/mm3 BMP 06/16/24 17:20 Sodium 139 Potassium 4.2 Chloride 101 Carbon Dioxide 26 BUN 12 Creatinine 0.98 Glucose 100 Calcium 9.2 Liver Function 06/16/24 Range/Units 17:20 Total Bilirubin 0.8 (0.2-1.3) mg/dL AST 31 (17-59) U/L ALT 46 (6-50) U/L Alkaline Phosphatase 59 (38-126) U/L Albumin 5.1 (3.5-5.1) g/dL Assessment and Plan Assessment and plan (1) Otitis externa: Code(s): H60.90 - Unspecified otitis externa, unspecified ear Status: Acute (2) Acute maxillary sinusitis: Code(s): J01.00 - Acute maxillary sinusitis, unspecified Status: Acute (3) HTN (hypertension): Qualifiers: Hypertension type: primary hypertension Qualified Code(s): I10 - Essential (primary) hypertension Code(s): I10 - Essential (primary) hypertension Status: Acute Plan Acute and principal conditions 1. Bilateral maxillary sinusitis 2. Left otitis externa 3. Left facial cellulitis. 4. Thrombocytopenia Rx: A. Levofloxacin, Clindamycin B. IVFs; Toradol C. Monitor platelets Chronic and stable conditions 1. Obesity, BMI 43 2. Dyslipidemia. On Rosuvastatin Miscellaneous care 1. Code status. Full 2. Nutrition. Heart healthy 3. VTE prophylaxis. SCDs; [facility] Hospitalist MIPS Advance Care Plan I have confirmed that the patient's Advanced Care Plan is present, code status is documented, or surrogate decision maker is listed in patient medical record.: Yes Medication Reconciliation I have utilized all available resources to obtain, update and review the patients current medications (includes all prescriptions, OTC, herbals, cannabis, and nutritional supplements).: Yes The patient is not eligible for med reconciliation; the patient is in a emergent medical situation where delaying treatment would jeopardize the patients health.: Yes
[2024-06-17 05:20] VITALS: BP 123/63; PULSE 75; RESP 16; TEMP 37.2; O2SAT 98
[2024-06-17] MEDS: CLINDAMYCIN 600 MG/D5W 50 ML 600 MG/50 ML PIGGYBACK 100 MG IVPB ×2 (05:38→13:37)
[2024-06-17] MEDS: KETOROLAC 15 MG/ML VIAL (*BKC) IV PUSH ×3 (05:39→21:04)
[2024-06-17] MEDS: HYDROcodone/acetaminophen (*CRX) 5-325 MG TABLET 1 TAB PO (05:40)
[2024-06-17] MEDS: SODIUM CHLORIDE 0.9% IV 1,000 ML 100 ML IV CONT (05:43)
[2024-06-17 06:13] LABS: Estimated CRCL calculation 98 ml/min; Estimated Glomerular Filt Rate > 60
[2024-06-17 08:36] VITALS: PULSE 69
[2024-06-17] MEDS: METOPROLOL SUCCINATE EXT REL 12.5 MG TABCR PO (08:36)
[2024-06-17] MEDS: levoFLOXacin 500 MG/D5W 100 ML 500 MG/100 ML BAG 100 MG IVPB (08:37)
--- NOTE | 2024-06-17 10:18 | PM.IMPN ---
Progress Note: A&P Assessment and Plan (1) Otitis externa: Code(s): H60.90 - Unspecified otitis externa, unspecified ear Status: Acute (2) Acute maxillary sinusitis: Code(s): J01.00 - Acute maxillary sinusitis, unspecified Status: Acute (3) HTN (hypertension): Qualifiers: Hypertension type: primary hypertension Qualified Code(s): I10 - Essential (primary) hypertension Code(s): I10 - Essential (primary) hypertension Status: Acute Plan Acute and principal conditions 1. Bilateral maxillary sinusitis 2. Left otitis externa 3. Left facial cellulitis. 4. Thrombocytopenia Rx: A. Levofloxacin, Clindamycin B. IVFs; Toradol C. Monitor platelets will stop clinda to reduce c diff/diarrhea, add flagyl. Continue ice pack Chronic and stable conditions 1. Obesity, BMI 43 2. Dyslipidemia. On Rosuvastatin Miscellaneous care 1. Code status. Full 2. Nutrition. Heart healthy 3. VTE prophylaxis. SCDs; KATHIE (refusing heparin) Time Spent With Patient Time with patient: 25 - 35 minutes Subjective Date/time seen: 06/17/24 10:18 Interval history: Cong Floyd is a 68-year-old male with a medical history significant for hypertension, dyslipidemia and obesity admitted for otitis externa with lt facial cellultiis. No known preceding trauma, manipulation of the ears, itching or swimming in any body of water recently/prior to the onset of the symptoms. Work-up findings: WBC 12, HGB 15, MCV 94, PLT 142 INR 1.1, PT 14, APTT 30 Unremarkable CMP Influenza a/B, RSV, COVID-19: Negative CT face: No facial fracture. Bilateral maxillary sinusitis Pt is seen and examined. Home meds restarted. IV antibioitcs. bc collected. Review of Systems Review of Systems: All systems reviewed & are unremarkable except as noted in HPI and below Exam Const: General: comfortable HENMT: Face/Nose/Sinus: Normal nares present Other: Erythematous left pinna; left facial swelling Eyes: Sclera: sclerae normal Pupils: Equal, round and reactive pupils present Neck: Neck: supple Resp: Effort & Inspection: normal respiratory effort Cardio: Rate: regular rate Rhythm: regular rhythm GI: Auscultation: normal bowel sounds Skin: General skin exam: erythema (Left face) Neuro: Cranial nerves: Yes Equal, round and reactive pupils present Speech: normal speech Motor exam (neuro): 5/5 motor strength present throughout Extrem: General: normal exam except as noted Psych: Mental Status: mental status grossly normal Affect: Anxious affect present Objective Data Vital Signs Vital Signs: Vital Signs - 24 hr 06/16/24 15:17 06/16/24 15:34 06/16/24 19:47 Temperature 98.8 F 99.6 F 100.6 F H Pulse Rate 113 H 102 H 102 H Respiratory Rate 16 16 20 Blood Pressure 149/75 H 143/73 H 169/83 H Pulse Oximetry 98 97 97 Oxygen Delivery Room Air 06/16/24 22:00 06/16/24 22:00 06/16/24 22:26 Temperature 99.5 F 99.1 F Pulse Rate 77 78 Respiratory Rate 20 18 Blood Pressure 127/74 142/88 H Pulse Oximetry 97 98 Oxygen Delivery Room Air 06/17/24 05:20 06/17/24 08:00 06/17/24 08:36 Temperature 99 F Pulse Rate 75 69 Respiratory Rate 16 Blood Pressure 123/63 Pulse Oximetry 98 Oxygen Delivery Room Air Intake/Output Intake/Output: Intake & Output 06/14/24 06/15/24 06/16/24 06/17/24 23:59 23:59 23:59 23:59 Intake Total 2250 1550 Balance 2250 1550 Meds/Results Medications: Active Medications Generic Name Dose Route Start Last Admin Trade Name Freq PRN Reason Stop Dose Admin Acetaminophen 650 mg 06/17/24 05:11 Acetaminophen 325 Mg Tablet PO Q4H PRN Mild Pain (1-3) or Fever Hydrocodone Bitart/Acetaminophen 1 tab 06/16/24 20:42 06/17/24 05:40 Hydrocodone/Acetaminophen (*Crx) 5-325 Mg Tablet PO 1 tab Q4H PRN Administration Pain Rated 4-6 Ascorbic Acid 500 mg 06/17/24 09:00 Ascorbic Acid 500 Mg Tablet PO DAILY [facility] Aspirin 81 mg 06/17/24 09:00 Aspirin 81 Mg Enteric Tablet PO DAILY [facility] Heparin Sodium (Porcine) 5,000 units 06/17/24 09:00 06/17/24 09:35 Heparin Sodium 5,000 Units/Ml Vial SUB-Q Not Given Q12HR KATHIE Vancomycin HCl 1,500 mg in 500 mls @ 250 mls/hr 06/17/24 10:00 Vancomycin 1,500 Mg/Ns 500 Ml IVPB Q12H KATHIE Sodium Chloride 1,000 mls @ 100 mls/hr 06/17/24 05:15 06/17/24 05:43 Normal Saline Iv IV CONT 100 mls/hr .Q10H KATHIE Administration Levofloxacin/Dextrose 500 mg in 100 mls @ 100 mls/hr 06/17/24 08:00 06/17/24 08:37 Levaquin 500 Mg/D5w 100 Ml IVPB 06/23/24 07:59 100 mls/hr Q24H KATHIE Administration Clindamycin Phosphate 600 mg in 50 mls @ 100 mls/hr 06/17/24 06:00 06/17/24 05:38 Clindamycin 600 Mg/D5w 50 Ml IVPB 100 mls/hr Q8HR KATHIE Administration Ketorolac Tromethamine 15 mg 06/17/24 06:00 06/17/24 05:39 Ketorolac 15 Mg/Ml Vial (*Bkc) IV PUSH 06/17/24 22:01 15 mg Q8HR KATHIE Administration Lisinopril 40 mg 06/17/24 09:00 Lisinopril 20 Mg Tablet PO DAILY KATHIE Melatonin 5 mg 06/17/24 05:11 Melatonin 5 Mg Tablet PO HS PRN Insomnia Metoprolol Succinate 12.5 mg 06/17/24 09:00 06/17/24 08:36 Metoprolol Succinate Ext Rel 12.5 Mg Tabcr PO 12.5 mg DAILY KATHIE Administration Multivitamins/Calcium 1 tablet 06/17/24 09:00 Therapeutic Multivitamins/Minerals Tab (*Bkc) PO QAM KATHIE Rosuvastatin Calcium 20 mg 06/17/24 21:00 Rosuvastatin 20 Mg Tablet PO HS [facility] Radiology Results: ITS Impressions Face CT 06/16/24 19:35 IMPRESSION: No facial fracture. Bilateral maxillary sinusitis Labs Labs: Laboratory Results - last 24 hr 06/16/24 06/16/24 06/17/24 17:20 20:30 05:50 WBC 12.0 H RBC 5.11 Hgb 15.8 Hct 48.1 MCV 94.1 MCH 30.9 MCHC 32.8 RDW 12.3 Plt Count 142 L MPV 10.6 H Immature Gran % (Auto) 0.4 Neut % (Auto) 82.4 H Lymph % (Auto) 9.0 L [place] % (Auto) 7.6 Eos % (Auto) 0.3 Baso % (Auto) 0.3 Lymph # (Auto) 1.08 [place] # (Auto) 0.9 H Eos # (Auto) 0.0 Baso # (Auto) 0.0 Abs Immat Gran (auto) 0.05 H Absolute Neuts (auto) 9.9 H Absolute Nucleated RBC 0.000 Nucleated RBC % 0.0 PT 14.6 INR 1.1 APTT 30.5 Sodium 139 Potassium 4.2 Chloride 101 Carbon Dioxide 26 Anion Gap 12 BUN 12 Creatinine 0.98 0.80 Estim Creat Clear Calc 107 98 Estimated GFR > 60 > 60 Glucose 100 Lactic Acid 1.5 Calcium 9.2 Total Bilirubin 0.8 AST 31 ALT 46 Alkaline Phosphatase 59 Total Protein 8.0 Albumin 5.1 Influenza A (RT-PCR) Negative Influenza B (RT-PCR) Negative RSV (RT-PCR) Negative SARS-CoV-2 RNA (RT-PCR) Negative Quality VTE Prophylaxis VTE prophylaxis: mechanical ordered
[2024-06-17] MEDS: ASPIRIN 81 MG ENTERIC TABLET PO (11:12)
[2024-06-17] MEDS: lisinopriL 20 MG TABLET 40 MG PO (11:12)
[2024-06-17] MEDS: ASCORBIC ACID 500 MG TABLET PO (11:12)
[2024-06-17] MEDS: THERAPEUTIC MULTIVITAMINS/MINERALS TAB (*BKC) 1 TABLET PO (11:13)
[2024-06-17] MEDS: VANCOMYCIN 1,500 MG/NS 500 ML 1,500 MG/500 ML BAG 250 MG IVPB ×2 (11:13→21:17)
[2024-06-17 12:00] VITALS: BP 125/76; PULSE 64; RESP 20; TEMP 36.9; O2SAT 99
[2024-06-17 16:00] VITALS: BP 100/77; PULSE 80; RESP 18; TEMP 36.8; O2SAT 97
[2024-06-17 20:00] VITALS: BP 140/70; PULSE 64; RESP 18; TEMP 37; O2SAT 99
[2024-06-17] MEDS: metroNIDAZOLE 500 MG/ISO 100ML 500 MG/100 ML BAG 100 MG IVPB (21:05)
[2024-06-17] MEDS: ROSUVASTATIN 20 MG TABLET PO (21:06)
[2024-06-18] VITALS (8 sets, daily range): BP systolic 113–138; BP diastolic 55–84; PULSE 59–76; RESP 16–20; TEMP 36.8–36.9; O2SAT 98–100
[2024-06-18] MEDS: metroNIDAZOLE 500 MG/ISO 100ML 500 MG/100 ML BAG 100 MG IVPB ×3 (05:59→21:30)
[2024-06-18 08:57] LABS: Basophils Percent Auto 0.5 % (0.2-1.2); Eosinophils Absolute Auto 0.2 K/mm3 (0-0.3); Eosinophils Percent Auto 3.6 % (0-4.4); Hematocrit 39.4 % (42.0-52.0); Hemoglobin 12.8 g/dL (14.0-18.0); Immature Granulocyte Absolute 0.03 K/mm3 (0.00-0.031); Immature Granulocyte Percent A 0.5 % (0-0.5); Immature Platelet Fraction Pct 3.2 % (0.9-11.2); Lymphocytes Absolute Auto 1.14 K/mm3 (0.9-3.2); Lymphocytes Percent Auto 18.7 % (18.3-44.2); Mean Corpuscular HGB Conc 32.5 g/dl (32-36); Mean Corpuscular Hemoglobin 31.1 pg (26-34); Mean Corpuscular Volume 95.6 fl (80-100); Mean Platelet Volume 10.1 fl (7.4-10.4); Monocytes Absolute Auto 0.6 K/mm3 (0.1-0.6); Neutrophils Absolute Auto 4.1 K/mm3 (1.3-6.7); Neutrophils Percent Auto 67.7 % (45.5-73.1); Platelet Count Result 120 k/mm3 (150-375); Red Blood Count 4.12 M/mm3 (4.6-6.20); Red Cell Distribution Width 12.5 % (11.5-14.5); White Blood Count 6.1 K/mm3 (4.5-10.0)
[2024-06-18 09:08] LABS: Alanine Aminotransferase 29 U/L (6-50); Albumin Level 3.5 g/dL (3.5-5.1); Alkaline Phosphatase 43 U/L (38-126); Anion Gap 5 mmol/L (4-12); Aspartate Amino Transferase 26 U/L (17-59); Bilirubin,Total 0.5 mg/dL (0.2-1.3); Blood Urea Nitrogen 12 mg/dL (9-20); Calcium 7.9 mg/dL (8.4-10.2); Carbon Dioxide 24 mmol/L (22-30); Chloride 111 mmol/L (98-107); Estimated CRCL calculation 94 ml/min; Estimated Glomerular Filt Rate > 60; Glucose 106 mg/dL (65-110); Potassium 4.2 mmol/L (3.4-5.0); Sodium 140 mmol/L (137-145)
[2024-06-18] MEDS: levoFLOXacin 500 MG/D5W 100 ML 500 MG/100 ML BAG 100 MG IVPB (09:17)
[2024-06-18] MEDS: lisinopriL 20 MG TABLET 40 MG PO (09:29)
[2024-06-18] MEDS: ASCORBIC ACID 500 MG TABLET PO (09:29)
[2024-06-18] MEDS: ASPIRIN 81 MG ENTERIC TABLET PO (09:29)
[2024-06-18] MEDS: METOPROLOL SUCCINATE EXT REL 12.5 MG TABCR PO (09:29)
[2024-06-18] MEDS: THERAPEUTIC MULTIVITAMINS/MINERALS TAB (*BKC) 1 TABLET PO (09:29)
--- NOTE | 2024-06-18 09:53 | P.PNIM_ITS ---
Progress Note: A&P Assessment and Plan (1) Otitis externa: Code(s): H60.90 - Unspecified otitis externa, unspecified ear Status: Acute (2) Acute maxillary sinusitis: Code(s): J01.00 - Acute maxillary sinusitis, unspecified Status: Acute (3) HTN (hypertension): Qualifiers: Hypertension type: primary hypertension Qualified Code(s): I10 - Essential (primary) hypertension Code(s): I10 - Essential (primary) hypertension Status: Acute Plan Acute and principal conditions 1. Bilateral maxillary sinusitis 2. Left otitis externa 3. Left facial cellulitis. 4. Thrombocytopenia Rx: A. Levofloxacin, Clinda, vanc B. IVFs-stopped yesterday pm as drinking ok. Toradol C. Monitor platelets will stop clinda to reduce c diff/diarrhea, add flagyl. Continue ice pack add probiotic monitor resp status Chronic and stable conditions 1. Obesity, BMI 43 2. Dyslipidemia. On Rosuvastatin Miscellaneous care 1. Code status. Full 2. Nutrition. Heart healthy 3. VTE prophylaxis. SCDs; KATHIE (refusing heparin) Time Spent With Patient Time with patient: 25 - 35 minutes Subjective Date/time seen: 06/18/24 09:53 Interval history: Cong Floyd is a 68-year-old male with a medical history significant for hypertension, dyslipidemia and obesity admitted for otitis externa with lt facial cellultiis. No known preceding trauma, manipulation of the ears, itching or swimming in any body of water recently/prior to the onset of the symptoms. Work-up findings: WBC 12, HGB 15, MCV 94, PLT 142 INR 1.1, PT 14, APTT 30 Unremarkable CMP Influenza a/B, RSV, COVID-19: Negative CT face: No facial fracture. Bilateral maxillary sinusitis Pt is seen and examined. Home meds restarted. IV antibiotics. bc collected. 06/18- pt is seen and examined. Swelling is a little bit better. No diarrhea. Appetite is good. Review of Systems Review of Systems: All systems reviewed & are unremarkable except as noted in HPI and below Exam Const: General: comfortable HENMT: Face/Nose/Sinus: Normal nares present Other: Erythematous left pinna; left facial swelling Eyes: Sclera: sclerae normal Pupils: Equal, round and reactive pupils present Neck: Neck: supple Resp: Effort & Inspection: normal respiratory effort Cardio: Rate: regular rate Rhythm: regular rhythm GI: Auscultation: normal bowel sounds Skin: General skin exam: erythema (Left face) Neuro: Cranial nerves: Yes Equal, round and reactive pupils present Speech: normal speech Motor exam (neuro): 5/5 motor strength present throughout Extrem: General: normal exam except as noted Psych: Mental Status: mental status grossly normal Affect: Anxious affect present Objective Data Vital Signs Vital Signs: Vital Signs - 24 hr 06/17/24 12:00 06/17/24 16:00 06/17/24 20:00 Temperature 98.4 F 98.3 F 98.6 F Pulse Rate 64 80 64 Respiratory Rate 20 18 18 Blood Pressure 125/76 100/77 140/70 Pulse Oximetry 99 97 99 Oxygen Delivery 06/17/24 20:00 06/18/24 00:00 06/18/24 04:00 Temperature 98.4 F 98.2 F Pulse Rate 64 67 70 Respiratory Rate 18 18 16 Blood Pressure 137/67 113/76 Pulse Oximetry 99 99 100 Oxygen Delivery Room Air 06/18/24 08:00 06/18/24 09:29 Temperature 98.2 F Pulse Rate 72 60 Respiratory Rate 18 Blood Pressure 129/55 L Pulse Oximetry 99 Oxygen Delivery Intake/Output Intake/Output: Intake & Output 06/15/24 06/16/24 06/17/24 06/18/24 23:59 23:59 23:59 23:59 Intake Total 2250 4980 450 Balance 2250 4980 450 Meds/Results Medications: Active Medications Generic Name Dose Route Start Last Admin Trade Name Freq PRN Reason Stop Dose Admin Acetaminophen 650 mg 06/17/24 05:11 Acetaminophen 325 Mg Tablet PO Q4H PRN Mild Pain (1-3) or Fever Hydrocodone Bitart/Acetaminophen 1 tab 06/16/24 20:42 06/17/24 05:40 Hydrocodone/Acetaminophen (*Crx) 5-325 Mg Tablet PO 1 tab Q4H PRN Administration Pain Rated 4-6 Ascorbic Acid 500 mg 06/17/24 09:00 06/18/24 09:29 Ascorbic Acid 500 Mg Tablet PO 500 mg DAILY KATHIE Administration Aspirin 81 mg 06/17/24 09:00 06/18/24 09:29 Aspirin 81 Mg Enteric Tablet PO 81 mg DAILY KATHIE Administration Heparin Sodium (Porcine) 5,000 units 06/17/24 09:00 06/18/24 09:30 Heparin Sodium 5,000 Units/Ml Vial SUB-Q Not Given Q12HR KATHIE Levofloxacin/Dextrose 500 mg in 100 mls @ 100 mls/hr 06/17/24 08:00 06/18/24 09:17 Levaquin 500 Mg/D5w 100 Ml IVPB 06/23/24 07:59 100 mls/hr Q24H KATHIE Administration Metronidazole 500 mg in 100 mls @ 100 mls/hr 06/17/24 22:00 06/18/24 06:59 Flagyl 500 Mg/Iso Soln 100 Ml IVPB Infused Q8HR KATHIE Infusion Vancomycin HCl 1,750 mg in 500 mls @ 250 mls/hr 06/18/24 10:00 Vancomycin 1,750 Mg/Ns 500 Ml IVPB Q12H KATHIE Lisinopril 40 mg 06/17/24 09:00 06/18/24 09:29 Lisinopril 20 Mg Tablet PO 40 mg DAILY KATHIE Administration Melatonin 5 mg 06/17/24 05:11 Melatonin 5 Mg Tablet PO HS PRN Insomnia Metoprolol Succinate 12.5 mg 06/17/24 09:00 06/18/24 09:29 Metoprolol Succinate Ext Rel 12.5 Mg Tabcr PO 12.5 mg DAILY KATHIE Administration Multivitamins/Calcium 1 tablet 06/17/24 09:00 06/18/24 09:29 Therapeutic Multivitamins/Minerals Tab (*Bkc) PO 1 tablet QAM KATHIE Administration Rosuvastatin Calcium 20 mg 06/17/24 21:00 06/17/24 21:06 Rosuvastatin 20 Mg Tablet PO 20 mg HS KATHIE Administration Radiology Results: ITS Impressions Face CT 06/16/24 19:35 IMPRESSION: No facial fracture. Bilateral maxillary sinusitis Labs Labs: Laboratory Results - last 24 hr 06/18/24 08:48 WBC 6.1 RBC 4.12 L Hgb 12.8 L D Hct 39.4 L MCV 95.6 MCH 31.1 MCHC 32.5 RDW 12.5 Plt Count 120 L MPV 10.1 Immature Gran % (Auto) 0.5 Neut % (Auto) 67.7 Lymph % (Auto) 18.7 [place] % (Auto) 9.0 H Eos % (Auto) 3.6 Baso % (Auto) 0.5 Lymph # (Auto) 1.14 [place] # (Auto) 0.6 Eos # (Auto) 0.2 Baso # (Auto) 0.0 Abs Immat Gran (auto) 0.03 Absolute Neuts (auto) 4.1 Absolute Nucleated RBC 0.000 Nucleated RBC % 0.0 % Immature Plt Fraction 3.2 Sodium 140 Potassium 4.2 Chloride 111 H Carbon Dioxide 24 Anion Gap 5 BUN 12 Creatinine 0.83 Estim Creat Clear Calc 94 Estimated GFR > 60 Glucose 106 Calcium 7.9 L Total Bilirubin 0.5 AST 26 ALT 29 Alkaline Phosphatase 43 Total Protein 6.0 L Albumin 3.5 Vancomycin Trough 12.0 Quality VTE Prophylaxis VTE prophylaxis: mechanical ordered
[2024-06-18] MEDS: VANCOMYCIN 1,750 MG/NS 500 ML 1,750 MG/500 ML BAG 250 MG IVPB ×2 (10:29→21:30)
[2024-06-18] MEDS: SACCHAROMYCES BOULARDII 250 MG CAPSULE PO ×3 (10:31→17:26)
[2024-06-18] MEDS: ACETAMINOPHEN 325 MG TABLET 650 MG PO (17:26)
[2024-06-18] MEDS: ROSUVASTATIN 20 MG TABLET PO (21:30)
[2024-06-19] VITALS: BP 116/67; PULSE 66; RESP 18; TEMP 36.8; O2SAT 99
[2024-06-19 04:00] VITALS: BP 144/74; PULSE 70; RESP 16; TEMP 37.1; O2SAT 97
[2024-06-19] MEDS: metroNIDAZOLE 500 MG/ISO 100ML 500 MG/100 ML BAG 100 MG IVPB ×2 (05:23→13:36)
[2024-06-19 07:54] LABS: Basophils Percent Auto 0.5 % (0.2-1.2); Eosinophils Absolute Auto 0.2 K/mm3 (0-0.3); Eosinophils Percent Auto 3.6 % (0-4.4); Hematocrit 40.5 % (42.0-52.0); Immature Granulocyte Absolute 0.02 K/mm3 (0.00-0.031); Immature Granulocyte Percent A 0.3 % (0-0.5); Immature Platelet Fraction Pct 2.8 % (0.9-11.2); Lymphocytes Percent Auto 16.3 % (18.3-44.2); Mean Corpuscular HGB Conc 32.1 g/dl (32-36); Mean Corpuscular Hemoglobin 30.5 pg (26-34); Mean Corpuscular Volume 95.1 fl (80-100); Mean Platelet Volume 10.2 fl (7.4-10.4); Monocytes Absolute Auto 0.4 K/mm3 (0.1-0.6); Monocytes Percent Auto 6.9 % (2.6-8.5); Neutrophils Absolute Auto 4.4 K/mm3 (1.3-6.7); Neutrophils Percent Auto 72.4 % (45.5-73.1); Platelet Count Result 133 k/mm3 (150-375); Red Blood Count 4.26 M/mm3 (4.6-6.20); Red Cell Distribution Width 12.3 % (11.5-14.5); White Blood Count 6.1 K/mm3 (4.5-10.0)
[2024-06-19 08:00] VITALS: BP 122/75; PULSE 61; RESP 17; TEMP 36.3; O2SAT 97; O2SAT 98
[2024-06-19 08:03] LABS: Alanine Aminotransferase 40 U/L (6-50); Albumin Level 3.7 g/dL (3.5-5.1); Alkaline Phosphatase 50 U/L (38-126); Anion Gap 6 mmol/L (4-12); Aspartate Amino Transferase 33 U/L (17-59); Bilirubin,Total 0.5 mg/dL (0.2-1.3); Blood Urea Nitrogen 8 mg/dL (9-20); Calcium 8.2 mg/dL (8.4-10.2); Carbon Dioxide 27 mmol/L (22-30); Chloride 109 mmol/L (98-107); Estimated CRCL calculation 84 ml/min; Estimated Glomerular Filt Rate > 60; Glucose 101 mg/dL (65-110); Sodium 142 mmol/L (137-145)
[2024-06-19] MEDS: ASCORBIC ACID 500 MG TABLET PO (08:46)
[2024-06-19] MEDS: levoFLOXacin 500 MG/D5W 100 ML 500 MG/100 ML BAG 100 MG IVPB (08:46)
[2024-06-19] MEDS: ASPIRIN 81 MG ENTERIC TABLET PO (08:46)
[2024-06-19] MEDS: lisinopriL 20 MG TABLET 40 MG PO (08:46)
[2024-06-19 08:47] VITALS: PULSE 72
[2024-06-19] MEDS: METOPROLOL SUCCINATE EXT REL 12.5 MG TABCR PO (08:47)
[2024-06-19] MEDS: THERAPEUTIC MULTIVITAMINS/MINERALS TAB (*BKC) 1 TABLET PO (08:48)
[2024-06-19] MEDS: SACCHAROMYCES BOULARDII 250 MG CAPSULE PO ×2 (08:48→13:40)
[2024-06-19] MEDS: VANCOMYCIN 1,750 MG/NS 500 ML 1,750 MG/500 ML BAG 250 MG IVPB (10:55)
--- NOTE | 2024-06-19 12:52 | P.DS_ITS ---
DS: Admitting Diagnosis Discharge Date 06/19 Admitting Diagnosis facial cellulitis DS: Discharge Diagnosis Discharge Diagnosis (1) Otitis externa: Code(s): H60.90 - Unspecified otitis externa, unspecified ear Status: Acute (2) Acute maxillary sinusitis: Code(s): J01.00 - Acute maxillary sinusitis, unspecified Status: Acute (3) HTN (hypertension): Qualifiers: Hypertension type: primary hypertension Qualified Code(s): I10 - Essential (primary) hypertension Code(s): I10 - Essential (primary) hypertension Status: Acute DS: Summary Hospital Course Hospital Course: Cong Floyd is a 68-year-old male with a medical history significant for hypertension, dyslipidemia and obesity admitted for otitis externa with lt facial cellultiis. No known preceding trauma, manipulation of the ears, itching or swimming in any body of water recently/prior to the onset of the symptoms. Following issues were addressed: 1. Bilateral maxillary sinusitis 2. Left otitis externa 3. Left facial cellulitis. Pt was on Levofloxacin, Clinda, vanc. Clinda was stopped to reduce c diff/diarrhea, add flagyl. Pt was downgraded to PO levaquin, flagyl and added doxy to complete 10 days of treatment. Pt symptoms were improved and he was stable for discharge with a close f/u with PCP. Status at Discharge Functional status at discharge: independent ambulation Overall status at discharge: patient is progressing back to baseline Time Spent with Patient Time attestation: Total time spent providing and/or coordinating discharge services: Time spent: Greater than 30 minutes Exam Const: General: comfortable HENMT: Face/Nose/Sinus: Normal nares present Other: Erythematous left pinna; left facial swelling Eyes: Sclera: sclerae normal Pupils: Equal, round and reactive pupils present Neck: Neck: supple Resp: Effort & Inspection: normal respiratory effort Cardio: Rate: regular rate Rhythm: regular rhythm GI: Auscultation: normal bowel sounds Skin: General skin exam: erythema (Left face) Neuro: Cranial nerves: Yes Equal, round and reactive pupils present Speech: normal speech Motor exam (neuro): 5/5 motor strength present throughout Extrem: General: normal exam except as noted Psych: Mental Status: mental status grossly normal Affect: Anxious affect present DS: Data Data Completed and Pending Labs on day of discharge: Labs from last 24 hours 06/19/24 07:47 WBC 6.1 RBC 4.26 L Hgb 13.0 L Hct 40.5 L MCV 95.1 MCH 30.5 MCHC 32.1 RDW 12.3 Plt Count 133 L MPV 10.2 Immature Gran % (Auto) 0.3 Neut % (Auto) 72.4 Lymph % (Auto) 16.3 L [place] % (Auto) 6.9 Eos % (Auto) 3.6 Baso % (Auto) 0.5 Lymph # (Auto) 1.00 [place] # (Auto) 0.4 Eos # (Auto) 0.2 Baso # (Auto) 0.0 Abs Immat Gran (auto) 0.02 Absolute Neuts (auto) 4.4 Absolute Nucleated RBC 0.000 Nucleated RBC % 0.0 % Immature Plt Fraction 2.8 Sodium 142 Potassium 4.0 Chloride 109 H Carbon Dioxide 27 Anion Gap 6 BUN 8 L Creatinine 0.94 Estim Creat Clear Calc 84 Estimated GFR > 60 Glucose 101 Calcium 8.2 L Total Bilirubin 0.5 AST 33 ALT 40 Alkaline Phosphatase 50 Total Protein 6.0 L Albumin 3.7 Preliminary micro results at discharge 06/16/24 17:20 Blood Culture - Preliminary Blood 06/16/24 17:41 Blood Culture - Preliminary Blood Discharge Plan Discharge Attending physician on discharge: Yehuda Wade Discharging Clinician: Daniella Quijano Patient Disposition: Home Activity: may shower and other - see discharge instructions Diet: regular Discharge Instructions: YOu were treated for facial cellulitis. We had you on IV antibiotics and you improved enough to be discharged with oral ones. Please take them as prescribed. Take probiotics to prevent diarrhea. If you develop any worsening of swelling, redness and/or any new sympotms, please return to ed right away. Patient Instructions: Antibiotic Form Patient Language: Citizen Of [place] Stand Alone Forms: General Discharge Information Follow-up/Referrals: Kymberly Arauz APRN [Primary Care Provider] - 1 Week Discharge Medications: New metronidazole 500 mg tablet 500 mg PO Q8H 10 Days Qty: 30 0RF levofloxacin 500 mg tablet 500 mg PO DAILY Qty: 10 0RF doxycycline monohydrate 100 mg capsule 100 mg PO BID 10 Days Qty: 20 0RF Continued lisinopril 40 mg tablet 40 mg PO DAILY aspirin 81 mg tablet,delayed release (DR/EC) 81 mg PO DAILY metoprolol succinate 25 mg tablet extended release 24 hr 12.5 mg PO DAILY One A Day Men Complete 240-25-300 mcg Tablet 1 tablet PO DAILY ascorbic acid (vitamin C) [Acerola C] 500 mg tablet,chewable 500 mg PO DAILY rosuvastatin 20 mg tablet 20 mg PO HS Date of admission: 06/17/24 08:00 Primary Care Provider: Kymberly Arauz Admitting Provider: Ezio Law Attending physician on admission: Ezio Law Condition: Stable Quality VTE Prophylaxis VTE prophylaxis: mechanical ordered
[2024-06-19 14:09] VITALS: BP 120/68; PULSE 63; RESP 17; TEMP 36.6; O2SAT 97
[2024-06-19 14:55] LABS: MRSA (PCR) NOT DETECTED (NOT DETECTE)
== END 2024-06-19 15:16 | disposition home or self-care (01) | DRG 603 ==
LOC: ANHED 20:42 → ANH3MEDSUR 21:11 → ANH3MED 21:16
PROVIDERS: Emergency Medicine; Admitting Provider Internal Medicine; Emergency Provider Physician Assistant; PCP Nurse Practitioner Adult Health; Visit Provider Nurse Practitioner
DX: L03.211 Cellulitis of face (principal); Z68.41 Body mass index [BMI] 40.0-44.9, adult; J01.00 Acute maxillary sinusitis, unspecified; I10 Essential (primary) hypertension; E78.5 Hyperlipidemia, unspecified; E66.9 Obesity, unspecified; I25.10 Atherosclerotic heart disease of native coronary artery without angina pectoris; D69.6 Thrombocytopenia, unspecified; Z87.891 Personal history of nicotine dependence
CPT/HCPCS: 36415; 70487; 80053; 80202; 82565; 83605; 85025; 85055; 85610; 85730; 87040; 87637; 87641; 96361; 96365; 96367; 96375; 99285; A9270; G0378; J1644; J1836; J1885; J1956; J3370; J7030; Q9967

== ENCOUNTER 2024-10-20 11:56 | Outpatient (CLI) | payer MEDICARE, SELFPAY ==
--- NOTE | ~2024-10-20 | XR_ITS ---
EXAM: XR shoulder RT min 2V DATE: 10/20/2024 12:19 HISTORY: M25.511 - Pain in right shoulder . COMPARISON: None available. FINDINGS: Normal mineralization. No fracture or dislocation. No lytic or blastic lesion. Moderate AC joint and mild glenohumeral joint degenerative change. No erosion or periosteal change. Soft tissues within normal limits. IMPRESSION: Polyarticular osteoarthritis of the right shoulder. Reviewed, dictated and finalized at location K.
--- OUTSIDE RECORDS SUMMARY | 2024-10-20 12:02 | XMS_ITS | Encounter Summary ---
Author Organization [facility] Address [address] [place] [address] Phone Care Team Providers Care Etl Data Architect Name Role Phone Kymberly Arauz NP Primary Care Provider Ayad Lambert MD Primary Care Provider [phone] Kymberly Arauz NP Primary Care Provider [phone] Encounter Details Date Type Department Care Team (Late st Contact Info) Description 12/09/2017 Telephone [facility] Cardiology [address] [facility] [address] [facility] [address] [place] [address] [place] [address] Jeferson Macias MD [address] [address] [place] [place], [place] [id number] Social History Tobacco Use Types Packs/Day Years Used Date Smoking Tobacco: Former Smokeless Tobacco: Never Sex and Gender Information Value Date Recorded Sex Assigned at Not on file 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
--- OUTSIDE RECORDS SUMMARY | 2024-10-20 12:02 | XMS_ITS | Encounter Summary ---
Author Organization [facility] Address [address] [place] [address] Phone Care Team Providers Care Teachers Aide Name Role Phone Kymberly Arauz NP Primary Care Provider [phone] Ayad Lambert MD Primary Care Provider [phone] Kymberly Arauz NP Primary Care Provider [phone] Encounter Details Date Type Department Care Team (Latest Contact Info) Description 05/10/2018 Orders Only [facility] Scanning, Provider Social History Tobacco Use Types Packs/Day Years Used Date Smoking Tobacco: Former Cigarettes 1 28 0 05/06/1971 - 05/06/1999 Smokeless Tobacco: Never Sex and Gender Information Value Date Recorded Sex Assigned at Not on file 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
--- OUTSIDE RECORDS SUMMARY | 2024-10-20 12:03 | XMS_ITS | Clinical Summary ---
Author Organization [facility] Address [address] [place] [address] Care Team Providers Care Lime Mixer Tender Name Role Phone Kymberly Arauz NP Primary Care Provider [phone] Allergies Active Allergy Reactions Criticality Noted Date Comments Penicillins Anaphylaxis High Medications HYDROcodone-shoshana taminophen (NORCO) 5-325 mg per tablet 0 07/19/2018 Activ e multivitamin tabletIndicatio ns:Vitamin Deficiency Prevention Take 1 [...] (06/11/2018): Added automatically from request for surgery [id number] Abnormal stress test 04/19/2018 Overview (04/19/2018): Added automatically from request for surgery [id number] Bilateral plantar fasciitis 12/22/201708/2022 Diastolic heart failure [...] Encounters Date Type Department Care Team Description 08/03/2024 1:45 PM CDT Office Visit [facility] Cardiology [address] [facility] [address] [place] [address] Jeferson Macias MD 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 (Primary Dx); Hypercholesterolemia from Last 3 Months Immunizations Immunization Administration [...] Passive Smoke Exposure: Past Smokeless Tobacco: Never Tobacco Cessation:Counseling Given: Not Answered Alcohol Use Standard Drinks/Week Comments Defer 0 [...] on file 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 Gender Identity Not on file Sexual Orientation Not on file Obstetrics History Last Filed Vital Signs Vital Sign Reading Time Taken Comments Blood Pressure 131/82 08/03/2024 3:11 PM CDT Pulse 68 08/03/2024 3:11 PM CDT Temperature 36.6 C (97.8 F) 08/03/2024 3:11 PM CDT Respiratory Rate 16 12/08/2023 10:45 AM CDT Oxygen Saturation 97% 08/03/2024 3:11 PM CDT Inhaled Oxygen Concentration - - Weight 110 kg (242 lb 6.4 oz) 08/03/2024 3:11 PM CDT Height 177.8 cm (5' 10) 08/03/2024 3:11 PM CDT Body Mass Index 34.78 08/03/2024 3:11 PM CDT Plan of Treatment Health Maintenance [...] season) 2023 08/16/2020, 07/26/2020 Influenza Vaccine (#1) 2024 Fall Risk Assessment 12/07/2024 12/08/2023 Colon Cancer Screening-Colonoscopy 12/07/20332023 Colon Cancer Screening-CT Colonography Discontinued 12/08/2023 Colon Cancer Screening-DNA Stool Discontinued 12/08/19 Colon Cancer Screening-FIT Discontinued 12/08/2023 Colon Cancer Screening-Sigmoidoscopy Discontinued 03/2023 Abdominal Aortic Aneurysm (A AA) Screen Completed 02/16/2024, 01/19/2015, 07/05/2014 Medical Devices Implanted Type Area Early Childhood Coordinator Device Identifier Shelf Expiration Date Model / Serial / Lot [employer]oci [id number] Synergy 3mm 28mm 144cm Radiopaque 1 Access Port Inflation Lumen - [id number] Implanted:Qty: 1 on 06/24/2018 by Aiden Toussaint MD at [facility] [employer] 04/04/2020 [id number] / / [id number] Procedures Procedure Name Priority Date/Time Associated Diagnosis Comments CTA ABDOMINAL AORTA AND BILATERAL ILIOFEMORAL RUNOFF Schedule Routine, Read Routine (OP Routine) 02/16/2024 9:02 AM CAT OPERATOR Aneurysm of common iliac artery COLONOSCOPY 12/08/2023 9:55 AM CDT from Last 3 Months or Most Recently Relevant to Health Maintenance Results * CTA Abdominal Aorta And Bilateral Iliofemoral Runoff (02/16/2024 9:02 AM CAT OPERATOR) Anatomical Region Laterality Modality Body Bilateral Computed Tomogra phy 02/16/2024 11:1 7 AM CAT OPERATOR Impressions 02/16/2024 12:29 PM CAT OPERATOR 1. Right lower extremity: Severe focal stenosis [...] Zackary Lee M.D. Narrative 02/16/2024 12:29 PM CAT OPERATOR EXAMINATION: CT ANGIOGRAPHY OF THE ABDOMEN, PELVIS, [...] it. Electronically signed by: Zackary Lee M.D. us Jeferson Macias MD IMG CT PROCEDURES Final Result * Colonoscopy (12/08/2023 9:55 AM CDT) Anatomical Region Laterality Modality Other Narrative Procedure Note Freddie Reed MD - 12/08/2023 9:55 AM CDT ENDOSCOPY LAB Patient Name: Deonte Floyd Procedure Date: 12/08/2023 9:55 AM Date of : 1955 Admit Type: Outpatient Age: 67 Gender: Male Attending MD: Freddie Reed M.D. Room: [facility] ENDOSCOPY ROOM 01 Note Status: Finalized Procedure: Colonoscopy Indications: Screening for colorectal malignant neoplasm, Last colonoscopy: 2013, Incidental - Abnormal CT of theGI tract Providers: Fredide Reed M.D. Referring MD: BETTY Olguin Medicines: [...] The scope was passed under direct vision.The [id number] was introduced through the anusand advanced to [...] Most Recently Relevant to Health Maintenance Insurance [employer] [facility] MEDICARE ADVANTAGE [facility] MEDICARE ADVANTAGE Advance Directives For more information, please contact: [phone] * Full Code (Latest Code Status on File) Date Activated Date Inactivated Comments 12/08/2023 8:42 AM 12/08/2023 3:07 PM * Full Code Date Activated Date Inactivated Comments 11/25/2023 8:38 AM 11/26/2023 5:15 AM * Full Code Date Activated Date Inactivated Comments 06/24/2018 10:35 AM 06/24/2018 6:55 PM Care Teams Lime Mixer Tender Relationship Specialty Start Date End Date Kymberly Arauz NP [address] [place] [address] PCP - General Nurse Practitioner 07/27/23
--- OUTSIDE RECORDS SUMMARY | 2024-10-20 12:03 | XMS_ITS | Clinical Summary ---
Author Organization [facility] Address [address] [place] [address] Phone Care Team Providers Care Legal Contracts Specialist Name Role Phone Kymberly Arauz BETTY Primary Care Provider Allergies Active Allergy Reactions Criticality Noted Date [...] Disease Paternal Grandmother High Cholesterol Paternal Grandmother Diabetes Sister Heart Disease Sister Hemophilia Sister High Cholesterol Sister Hypertension Sister Other [...] on file Legal Sex Male 9:39 AM CLAIMS REPRESENTATIVE Gender Identity Not on file Sexual Orientation Not on file Last Filed Vital Signs Vital Sign Reading Time Taken Comments Blood Pressure 150/92 03/23/2020 9:06 AM CLAIMS REPRESENTATIVE Pulse 58 03/23/2020 9:06 AM CLAIMS REPRESENTATIVE Temperature 36.6 C (97.9 F) 03/23/2020 9:06 AM CLAIMS REPRESENTATIVE Respiratory Rate - - Oxygen Saturation - - Inhaled Oxygen Concentration - - Weight 111.1 kg (245 lb) 03/23/2020 9:06 AM CLAIMS REPRESENTATIVE Height 177.8 cm (5' 10) 03/23/2020 9:06 AM CLAIMS REPRESENTATIVE Body Mass Index 35.15 03/23/2020 9:06 AM CLAIMS REPRESENTATIVE Plan of Treatment Health Maintenance Due Date Last Done Comments COLORECTAL SCREENING 2002 Colorectal Cancer Screening 2002 FIT-DNA Q 3 years 2002 FIT/FOBT Q 1 year 2002 Flex Sig/CT Colonography Q 5 years 2002 PNEUMOCOCCAL VACCINE 50+ YEARS (1 of 1 - PCV) 12/15/19 08 ZOSTER VACCINE (1 of 2) 12/15/2007 DTAP/TDAP/TD VACCINES (2 - Td or Tdap) 03/09/2023 INFLUENZA VACCINE (#1) 2024 RSV VACCINE (60+ or ) (1 - 1-dose 75+ series) 2032 Insurance [employer] BLUE ACCESS/TRUE BLUE PPO Care Teams Legal Contracts Specialist Relationship Specialty Start Date End Date Kymberly Arauz ANP [address] [address] PCP - General Nurse Practitioner Adult Health 03/23/20
--- OUTSIDE RECORDS SUMMARY | 2024-10-20 12:03 | XMS_ITS | Encounter Summary ---
Author Organization [facility] Address [address] [place] [address] Care Team Providers Care Waterproofing Machine Operator Name Role Phone Nay Verduzco MD Primary Care Provider Encounter Details Date Type Department Care Team (Late st Contact Info) Description 10/29/2023 Lab Requisition [facility] - Pathology Lab [address] [place] [address] Christos Agee MD [address] [facility] [address] [place] [address] Unspecified abdominal pain; Essential (primary) hypertension Social History Tobacco Use Types Packs/Day Years Used Date Smoking Tobacco: Never Assessed Sex and Gender Information Value Date Recorded Sex Assigned at Not on file Legal Sex Male 6:27 AM HOSPITALITY AMBASSADOR Gender Identity Not on file Sexual Orientation [...] AM CDT) Case Report Flow Cytometry Case: [id number] Authorizing Provider: Christos Agee Collected: 10/29/2023 11:58 AM MD Xu Ordering Location: [facility] - Received: 10/29/2023 04:03 PM Pathology Lab Pathologist: Annabel Kerr MD Specimen: Abdomen, Lymphnode 10/29/2023 5:01 PM [facility] PATHOLOGY LAB Final Diagnosis Mesenteric mass, flow cytometric immunophenotypic analysis: - Insufficient hematopoietic cells for analysis - See interpretation 10/29/2023 5:01 PM [facility] PATHOLOGY LAB at 1701 CDT Flow Cytometry Interpretation Preliminary characterization of the mesenteric mass specimen demonstrates too few hematopoietic cells for flow cytometric analysis. A cytospin prepared from the flow cytometry specimen is reviewed for quality control auditor purposes. Scattered erythrocytes and debris are seen. Flow cytometry is not performed. 10/29/2023 5:01 PM [facility] PATHOLOGY LAB Flow Cytometry Results Too few hematopoietic cells for flow cytometric analysis. 10/29/2023 5:01 PM [facility] PATHOLOGY LAB Reason for test Unspecified abdominal pain Essential (primary) hypertension 401.9 10/29/2023 5:01 PM [facility] PATHOLOGY LAB Client Specimen ID # [id number] 10/29/2023 5:01 PM [facility] PATHOLOGY LAB Pathologist Location at [facility] 10/29/2023 5:01 PM [facility] PATHOLOGY LAB Disclaimer Test performed at [facility], [address] [place] [address], [id number]. *The established laboratory minimum viability is 70%. [...] high complexity clinical testing. 10/29/2023 5:01 PM [facility] PATHOLOGY LAB Embedded Images 5:01 PM [facility] PATHOLOGY LAB Pathology/Cytolo gy ABDOMEN AND PELVIS / Unknown 10/29/2023 11:58 AM CDT 10/29/2023 4:03 PM CDT Christos Agee MD LAB - PATHOLOGY/CYT OLOGY ORDERABLES Final Result [facility] [address] [facility] [phone] documented in this encounter Visit Diagnoses Diagnosis Unspecified abdominal pain Essential (primary) hypertension Unspecified essential hypertension documented in this encounter Care Teams Waterproofing Machine Operator Relationship Specialty Start Date End Date Nay Verduzco MD [address] [place] [phone] PCP - General 07/21/18 documented as of this encounter
--- OUTSIDE RECORDS SUMMARY | 2024-10-20 12:03 | XMS_ITS | Encounter Summary ---
Author Organization [facility] Address [address] [place] [address] Phone Care Team Providers Care Sales Planning Analyst Name Role Phone Kymberly Arauz NP Primary Care Provider [phone] Ayad Lambert MD Primary Care Provider [phone] Kymberly Arauz NP Primary Care Provider [phone] Encounter Details Date Type Department Care Team (Late st Contact Info) Description 05/08/2022 Telephone [facility] Cardiology [address] [facility] [address]th [place] [address] [place] [address] Jeferson Macias MD [address] [facility] [place] [address] [place], [place] [id number] Social History Tobacco Use Types Packs/Day Years Used Date Smoking Tobacco: Former Cigarettes 1 28 0 05/06/1971 - 05/06/1999 Smokeless Tobacco: Never Alcohol Use Standard Drinks/Week Comments Defer 0 (1 standard drink = 0.6 oz pur e alcohol) Sex and Gender Information Value Date Recorded Sex Assigned at Not on file 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 Gender Identity Not on file Sexual Orientation Not on file documented as of this encounter Plan of Treatment Not on file documented as of this encounter Visit Diagnoses Not on filedocumented in this encounter Care Teams Sales Planning Analyst Relationship Specialty Start Date End Date Kymberly Arauz NP PCP - General 01/09/17 07/06/22 Ayad Lambert MD [address] [place] [address] [place] [address] PCP - General Family Medicine 07/07/22 07/26/23 Kymberly Arauz NP [address] [place] [address] PCP - General Nurse Practitioner 07/27/23 documented as of this encounter
--- OUTSIDE RECORDS SUMMARY | 2024-10-20 12:03 | XMS_ITS | Clinical Summary ---
Author Organization [facility] Address [address] [place] [address] Care Team Providers Care Needle Felt Making Machine Operator Name Role Phone Nay Verduzco MD Primary Care Provider Source Comments [facility],non-[facility] Affiliates and Associated Physician Practices is amultiple site organization consisting of ambulatory clinics and hospital sitesin [place], [place], [place] and [place]. This disclosure is being madepursuant to the Care Everywhere program and may not contain all information available regarding this patient. 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 Gender Identity Not on file Sexual Orientation [...] 9:41 PM CDT Height 177.8 cm (5' 10) 08/21/2015 9:41 PM CDT Body Mass Index 32.71 08/21/2015 9:41 PM CDT Plan of Treatment Health Maintenance Due Date Last Done Comments ASHLEY (AGES 45-75) - COL ON CA SCREENING [...] MEDICARE AWV CALENDAR YEAR 2024 INFLUENZA VACCINE (#1) 2024 Respiratory Syncytial Virus (RSV) Vaccine Pt: [...] on patient's age to complete this topic Insurance [employer] MEDICARE ADV SELF PAY NO INSURANCE Member Subscriber Plan / Payer (Ef fective for All Dates) Name:Deonte Floyd Member ID:Not on file Relation to Subscriber:Not on file Name:DEONTE FLOYD Subscriber ID:Not on file (Home) Address: [place] [address] Payer ID:Not on file Group ID:Not on file Type:Self Pay Address: [place], [place] Care Teams Needle Felt Making Machine Operator Relationship Specialty Start Date End Date Nay Verduzco MD [address] [place] [phone] PCP - General 07/21/18
--- OUTSIDE RECORDS SUMMARY | 2024-10-20 12:03 | XMS_ITS | Encounter Summary ---
Author Organization [facility] Address [address] [place] [address] Phone Care Team Providers Care Glass Setter Name Role Phone BernarddreaKymberly NP Primary Care Provider [phone] Encounter Details Date Type Department Care Team (Late st Contact Info) Description 03/16/2024 Telephone [facility] Cardiology [address] [facility] 8th [place] [address] [place] [address] Jeferson Macias MD [address] [facility] [address] [place] [address] [place] [address] Social History Tobacco Use Types [...] on file 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
--- OUTSIDE RECORDS SUMMARY | 2024-10-20 12:03 | XMS_ITS | Encounter Summary ---
Author Organization [facility] Address [address] [place] [address] Phone Care Team Providers Care Vice President Quality Assurance Name Role Phone Kymberly Arauz NP Primary Care Provider [phone] Ayad Lambert MD Primary Care Provider [phone] Kymberly Arauz NP Primary Care Provider [phone] Encounter Details Date Type Department Care Team (Latest Contact Info) Description 12/19/2021 Orders Only [facility] Annabel Gonzáles, [place] [address] [facility] [address] [place] [address] Social History Tobacco Use Types Packs/Day Years Used Date Smoking Tobacco: Former Cigarettes 1 28 0 05/06/1971 - 05/06/1999 Smokeless Tobacco: Never Alcohol Use Standard Drinks/Week Comments Defer 0 (1 standard drink = 0.6 oz pur e alcohol) Sex and Gender Information Value Date Recorded Sex Assigned at Not on file 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
== END 2024-10-20 11:57 | disposition home or self-care (01) ==
PROVIDERS: PCP Nurse Practitioner Adult Health; Visit Provider Nurse Practitioner Adult Health
DX: M19.011 Primary osteoarthritis, right shoulder (principal)
CPT/HCPCS: 73030

== ENCOUNTER 2024-11-03 11:09 | Outpatient (CLI) | payer MEDICARE, SELFPAY ==
--- NOTE | ~2024-11-03 | MR_ITS ---
EXAMINATION: MR shoulder RT wo con DATE: 11/03/2024 11:46 INDICATION: Right shoulder primary osteoarthritis TECHNIQUE: Magnetic resonance imaging (MRI) of the right shoulder was performed without intravenous contrast. Sequences included axial PD-weighted FS FSE, coronal oblique PD-weighted FS FSE, coronal oblique T2-weighted FS FSE, sagittal PD-weighted FS FSE, and sagittal T1-weighted SE. COMPARISON: None. FINDINGS: Coracoacromial arch: The acromion undersurface is curved in morphology (type II). The coracoacromial ligament is normal. Severe acromioclavicular osteoarthritis. Rotator cuff: Mild tendinopathy without tear of the supraspinatus and anterior infraspinatus tendons. The more posterior infraspinatus tendon and teres minor tendon are normal. Subscapularis tendon is normal. Normal rotator cuff muscle bulk and signal. Biceps tendon, glenoid labrum and glenohumeral cartilage: Long head of the biceps tendon is normal. Mild amorphous increased signal consistent with degenerative tearing of the superior to posterior superior glenoid labrum with some additional degeneration along the free edge of the posterior glenoid labrum. There is a more well-defined linear tear at the ante rosuperior glenoid labrum. Mild glenohumeral osteoarthritis with minimal partial-thickness cartilage loss and some subtle scattered chondral surface irregularity along the humeral head and glenoid. Fluid: Physiologic amount of fluid in the glenohumeral joint and biceps tendon sheath. No loose osteochondral bodies. Mild increased fluid signal in the subacromial/subdeltoid bursa consistent with mild bursitis. Bones: Normal marrow signal with no edema, fracture or abnormal marrow replacing process. IMPRESSION: 1. Mild glenohumeral osteoarthritis with small tear at the anterosuperior glenoid labrum and degeneration of the superior, posterior superior and posterior labrum. 2. Severe acromioclavicular osteoarthritis with mild underlying subacromial/subdeltoid bursitis. 3. Mild tendinopathy without tear of the supraspinatus and anterior infraspinatus tendons. Reviewed, dictated and finalized at location A. IMPRESSION: 1. Mild glenohumeral osteoarthritis with small tear at the anterosuperior gleno id labrum and degeneration of the superior, posterior superior and posterior la milton. 2. Severe acromioclavicular osteoarthritis with mild underlying subacromial/sub deltoid bursitis. 3. Mild tendinopathy without tear of the supraspinatus and anterior infraspinat us tendons.
== END 2024-11-03 11:10 | disposition home or self-care (01) ==
PROVIDERS: Visit Provider Nurse Practitioner Adult Health
DX: M19.011 Primary osteoarthritis, right shoulder (principal)
CPT/HCPCS: 73221

== ENCOUNTER 2024-12-14 07:55 | Outpatient (CLI) | payer MEDICARE, SELFPAY ==
--- NOTE | ~2024-12-14 | MR_ITS ---
EXAMINATION: MR cervical spine wo con DATE: 12/14/2024 08:30 INDICATION: Radiculopathy, cervical region. TECHNIQUE: Magnetic resonance imaging (MRI) of the cervical spine was performed without intravenous contrast. COMPARISON: None FINDINGS: There is 8 degrees levocurvature of upper thoracic spine. Vertebral body heights are normal. There is moderately decreased disc height at C3-C4, C4- C5, and C6-C7. The spinal cord signal intensity is normal. The following disc levels are specifically discussed: C2-C3: The disc does not extend beyond the endplate margin. There is mild left uncovertebral joint osteoarthritis. There is severe bilateral facet joint osteoarthritis. There is mild left neural foraminal stenosis. There is no central canal stenosis. C3-C4: The disc is bulging. There is moderate right and severe left uncovertebral joint osteoarthritis. There is mild bilateral facet joint osteoarthritis. There is mild right and moderate left neural foraminal stenosis. There is mild central canal stenosis. C4-C5: The disc is bulging. There is severe right and moderate left uncovertebral joint osteoarthritis. There is mild bilateral facet joint osteoarthritis. There is moderate right and mild left neural foraminal stenosis. There is mild central canal stenosis. C5-C6: The disc is bulging. There is moderate bilateral uncovertebral joint osteoarthritis. There is mild right and severe left facet joint osteoarthritis. There is mild bilateral neural foraminal stenosis. There is mild central canal stenosis. C6-C7: The disc is bulging. There is severe bilateral uncovertebral joint osteoarthritis. There is mild bilateral facet joint osteoarthritis. There is mild right and moderate left neural foraminal stenosis. There is mild central canal stenosis. C7-T1: The disc does not extend beyond the endplate margin. There is mild bilateral uncovertebral joint osteoarthritis. There is moderate right and severe left facet joint osteoarthritis. There is mild bilateral neural foraminal stenosis. There is no central canal stenosis. IMPRESSION: 1. Moderate cervical spondylosis. Reviewed, dictated and finalized at location E.
== END 2024-12-14 07:56 | disposition home or self-care (01) ==
LOC: MICIMG 07:55
PROVIDERS: PCP Nurse Practitioner Adult Health; Visit Provider Nurse Practitioner Adult Health
DX: M47.812 Spondylosis without myelopathy or radiculopathy, cervical region (principal); M54.12 Radiculopathy, cervical region
CPT/HCPCS: 72141